=== PATIENT | male | born 1955 | race Caucasian/White ===

== ENCOUNTER → 2018-11-07 11:27 | Outpatient (CLI) | payer BC, SELFPAY ==
--- NOTE | 2018-11-07 11:29 | NM_ITS ---
CARDIOLITE SPECT MYOCARDIAL PERFUSION LEXISCAN, REST AND STRESS: History: Hypertension, hyperlipidemia, family history, chest pain, shortness of breath and fatigue Procedure: Patient received a 0.4 mg of intravenous Lexiscan, resting heart rate was 47 bpm resting blood pressure 164/83, with Lexiscan maximum heart rate achieved was 70 bpm which is less than 85% of the maximum predicted heart rate and a blood pressure was 133/77. With Lexiscan patient complained of malaise. Electrocardiogram: Resting echocardiogram showed sinus bradycardia, with Lexiscan less than 1.[address] segment depression noted from the baseline EKG. The EKG portion of the Lexiscan Myoview is nondiagnostic. Cardiac stress and resting SPECT images: Cardiac stress and resting SPECT images were obtained using technetium 99 Myoview 32.4 mCi stress and 10.5 mCi at rest. Gated SPECT further analysis of segmental wall motion and calculation of ejection fraction also done. Cardiac stress and the suspect images show mild fixed defect in the inferior wall with normal contractility in the gated SPECT is likely secondary to soft tissue attenuation, no reversible ischemia seen. Computer derived ejection fraction is 64% with no regional wall motion abnormality. Right ventricle is mildly enlarged with normal contractility. Conclusion: 1. The EKG portion of the Lexiscan Myoview is nondiagnostic. 2. No scintigraphic evidence of reversible ischemia seen. 3. Computer derived ejection fraction is extensive 4% with no regional wall motion abnormality, right ventricle is mildly enlarged with normal contractility.
--- NOTE | 2018-11-07 13:15 | HMH.ITSHM ---
Current Home Medications as stated by this patient Basil Leal or policy services representative. []asp lovastatin bisprolol amlodipine benazepril
== END ==
PROVIDERS: PCP Family Medicine; Visit Provider Internal Medicine
DX: I20.9 Angina pectoris, unspecified (principal); R06.00 Dyspnea, unspecified; I10 Essential (primary) hypertension; E78.5 Hyperlipidemia, unspecified; R00.1 Bradycardia, unspecified
CPT/HCPCS: 78452; 93017; A9502; J2785

== ENCOUNTER → 2018-11-27 09:29 | Outpatient (CLI) | payer MEDICAID, SELFPAY ==
[2018-11-27 10:00] LABS: Blood Urea Nitrogen 24 mg/dL (7-18); Creatinine,Serum 1.25 mg/dL (0.70-1.30); Estimated Glomerular Filt Rate 59 ml/min (>60); GFR (African American) 71 ML/MIN (>60)
--- NOTE | 2018-11-27 10:07 | CT_ITS ---
CT chest w con HISTORY: Shortness of air, cough, chest pain ITS.REASON: SOB,CHRONIC COUGHING,WHEEZING,FIBROTIC LUNG DISEASE ORDERING PHYSICIAN: Sue Foster PATIENT AGE: 63 years COMPARISON: 10/28/2014 TECHNIQUE: Axial images obtained following the administration of 75 mL of Optiray 350 . Sagittal, and coronal reformatted images are also generated and reviewed. All CT scans at the facility use one or more dose reduction, viz: automated exposure control, ma/kV adjustment per patient size (including targeted exams where dose is matched to indication, i.e. head), or iterative reconstruction technique. FINDINGS: There are scattered small nodes in mediastinum. No mediastinal or hilar adenopathy or mass is evident. Some of the mediastinal nodes are calcified. There are coronary artery calcifications. Normal heart size. No evidence of aortic aneurysm or dissection. No central pulmonary embolus. There are some scattered fibrotic changes noted in the right upper lobe, right lower lobe, and left upper lobe not significantly changed. No lobar consolidation or collapse is evident. Atelectasis or fibrosis is present in the right middle lobe along the major fissure which has developed since the previous exam. No effusions. No suspicious pulmonary lesions. No central obstructing lesions. There is a calcified granuloma in the right upper lobe. No acute bony findings. IMPRESSION: 1. Scattered fibrotic changes which are mostly stable. 2. New area of atelectasis or fibrosis in the right middle lobe along the major fissure. 3. Old granulomatous disease 4. Coronary artery calcifications
== END ==
PROVIDERS: Visit Provider Nurse Practitioner Family
DX: R05 Cough (principal); R06.02 Shortness of breath; R06.2 Wheezing; J84.10 Pulmonary fibrosis, unspecified
CPT/HCPCS: 36415; 71260; 82565; 84520; Q9967

== ENCOUNTER → 2019-02-04 09:39 | Outpatient (POV) | payer MEDICAID, SELFPAY | PROVIDERS: Visit Provider Internal Medicine | DX: Z00.00 Encounter for general adult medical examination without abnormal findings (principal) ==

== ENCOUNTER → 2019-02-24 09:18 | Outpatient (CLI) | payer MEDICAID, SELFPAY ==
[2019-02-24 10:12] LABS: Basophils % 0.3 % (0.1-2.0); Eosinophils # 0.1 K/mm3 (0.0-0.4); Eosinophils % 1.5 % (0.1-12.0); Hematocrit 48.1 % (42.0-52.0); Hemoglobin 15.5 g/dL (14.1-18.0); Lymphocytes # 1.8 K/mm3 (0.7-4.5); Lymphocytes % 26.8 % (10-50); Mean Corpuscular HGB Conc 32.2 g/dL (31.8-35.4); Mean Corpuscular Hemoglobin 28.2 pg (27.0-31.2); Mean Corpuscular Volume 87.7 fl (80-94); Mean Platelet Volume 8.6 fl (7.4-10.4); Monocytes # 0.7 K/mm3 (0.1-1.0); Monocytes % 10.6 % (1.7-9.3); Neutrophils # 4.1 K/mm3 (1.8-7.8); Neutrophils % 60.8 % (37.0-80.0); Platelet Count 222 K/mm3 (142-424); Red Blood Count 5.48 M/mm3 (4.60-6.20); Red Cell Distribution Width 13.7 % (11.5-17.5); White Blood Count 6.8 K/mm3 (4.8-10.8)
[2019-02-24 12:45] LABS: Alanine Aminotransferase 33 U/L (12-78); Albumin Level 3.7 gm/dL (3.4-5.0); Anion Gap 12.6 mEq/L (5-15); Aspartate Amino Transferase 20 U/L (15-37); Bilirubin,Direct 0.1 mg/dL (0.0-0.2); Bilirubin,Indirect 0.4 mg/dL (0.0-0.9); Bilirubin,Total 0.5 mg/dL (0.2-1.0); Blood Urea Nitrogen 19 mg/dL (7-18); Calcium 8.9 mg/dL (8.5-10.1); Carbon Dioxide 27 mmol/L (21.0-32.0); Chloride 104 mmol/L (98-107); Cholesterol 152 mg/dL (140-200); Creatinine,Serum 1.27 mg/dL (0.70-1.30); Estimated Glomerular Filt Rate 57 ml/min (>60); GFR (African American) 70 ML/MIN (>60); Glucose 99 mg/dL (74-106); HDL Cholesterol 48 mg/dL (27-67); Potassium 4.6 mmoL/L (3.5-5.1); Sodium 139 mmol/L (136-145); Total Protein,Serum 6.9 gm/dL (6.4-8.2); Triglycerides 65 mg/dL (30-200); VLDL Cholesterol 13 mg/dL (0-40)
[2019-02-24 12:46] LABS: Alkaline Phosphatase 57 U/L (46-116); Chol/HDL Ratio 3.2 (1-3.5); LDL Cholesterol 91 mg/dL (0-130)
== END ==
PROVIDERS: Visit Provider Physician Assistant
DX: R00.1 Bradycardia, unspecified (principal); I25.10 Atherosclerotic heart disease of native coronary artery without angina pectoris; R06.09 Other forms of dyspnea; E78.2 Mixed hyperlipidemia; I10 Essential (primary) hypertension
CPT/HCPCS: 36415; 80048; 80061; 80076; 85025

== ENCOUNTER → 2019-03-04 19:45 | Outpatient (CLI) | payer MEDICAID, SELFPAY | PROVIDERS: PCP Pain Medicine Interventional Pain Medicine; Visit Provider Internal Medicine | DX: G47.33 Obstructive sleep apnea (adult) (pediatric) (principal); R40.0 Somnolence; J44.9 Chronic obstructive pulmonary disease, unspecified | CPT/HCPCS: 95810 ==

== ENCOUNTER → 2019-03-10 12:10 | Outpatient (CLI) | payer MEDICAID, SELFPAY ==
--- NOTE | 2019-03-10 12:17 | CA_ITS ---
PROCEDURE: 2-D M-mode and color Doppler study INDICATIONS FOR THE TEST: Chest pain COPD Heart Murmur+ Tobacco Smoking Palpitations Fatigue Syncope Edema Hypertension Diabetes Mellitus Rheumatic Fever SOB+OQUENDO Obesity+Hyperlipidemia+ Family History HD Additional History cad,bradycardia TDS R/T BODY HABITUS PATIENT INFORMATION HEIGHT: 67 WEIGHT:221 GENDER: Male B/P:136/71 2-D/M-MODE INTERPRETATION: 2-D MEASUREMENTS OBSERVED VALUES IN CMS Right Ventricular Dimension (RVDd) 2.9 Interventricular Septum (Thickness)(IVsd) 1.0 Left Ventricular Internal Dimensions(LVIDd) 4.3 Left Ventricular Posterior Wall (Thickness)(LVPWd) 1.0 Aortic Root 2.4 Aortic Cusp Separation 1.7 Left Atrial Dimensions (LAD) 4.1 2D 1. Left atrium is mildly enlarged, left ventricle is normal size, mild concentric left ventricular hypertrophy, visually estimated ejection fraction 55% with no regional wall motion abnormality, endocardial surfaces are somewhat poorly visualized. 2. The right atrium and right ventricle are mildly enlarged with normal contractility. 3. The aortic valve is minimally thickened and fibrosed. 4. The mitral and tricuspid valve leaflets are minimally thickened 5. The pulmonic valve is poorly visualized. 6. No significant pericardial effusion noted. DOPPLER INTERROGATION: Doppler interrogation of the aortic, mitral and tricuspid valvular presence of mild mitral and tricuspid regurgitation, tricuspid regurgitation jet velocity is inadequate for calculation of the right ventricular systolic pressure, grade 1 diastolic dysfunction seen without tissue Doppler evidence of raised left atrial pressure. CONCLUSION: 1. Technically difficult study because of the patient's factor and poor acoustic windows 2. Mildly enlarged left atrium, normal left ventricular size, mild concentric left ventricular hypertrophy, visually estimated ejection fraction 55% with no regional wall motion abnormality, endocardial surface of poorly visualized. Grade 1 diastolic dysfunction seen without tissue Doppler evidence of raised left atrial pressure. 3. Mildly enlarged right ventricle with normal contractility. 4. Mild mitral and tricuspid regurgitation. 5. No significant pericardial effusion noted.
[2019-03-10 13:45] VITALS: PULSE 53; PULSE 55
== END ==
PROVIDERS: PCP Family Medicine; Visit Provider Internal Medicine
DX: R01.1 Cardiac murmur, unspecified (principal); J45.909 Unspecified asthma, uncomplicated; H54.40 Blindness, one eye, unspecified eye
CPT/HCPCS: 93306; 94060; 94618; 94640; 94726; 94729

== ENCOUNTER → 2019-08-14 13:23 | Outpatient (CLI) | payer OTHER, SELFPAY | PROVIDERS: PCP Family Medicine; Visit Provider Nurse Practitioner Family | DX: G47.33 Obstructive sleep apnea (adult) (pediatric) (principal) | CPT/HCPCS: 94762 ==

== ENCOUNTER 2019-12-19 08:31 | Day surgery (SDC) | payer OTHER, SELFPAY ==
[2019-12-19] VITALS (12 sets, daily range): BP systolic 135–178; BP diastolic 82–103; PULSE 50–83; RESP 16–20; TEMP 36.8; O2SAT 92–96; BMI 38.4
--- NOTE | 2019-12-19 08:36 | CA_ITS ---
APPROVED REPORT EXAM: Comprehensive 2D, Doppler, and color-flow Echocardiogram Outside Sales: Sue Garcia RVT Ht: 5 ft 6 in Wt: 238lbs BSA: 2.15 BP: 124/85 mmHg Indications: CP,MURMUR,FATIGUE,BRADYCARDIA,CAD,ALEXI,SOA,OQUENDO,HLD,OBESITY 2D Dimensions LVOT 1.83 cm (M/F) 1.5-2.5 M-Mode Dimensions RVDd 2.69 cm (0.9-2.6) LVDd 5.91 cm (3.5-5.7) LVDs 4.24 cm (3.5-5.7) IVSd 0.87 cm (0.6-1.1) PWd 0.91 cm (0.6-1.1) EF (Teich) 53.80% FS 28.30% EDV (Teich) 173.90 mL ESV (Teich) 80.40 mL LV Diastology E/A Ratio 0.76 Aortic Valve LVOT Max 136.00 (70-110 cm/s) LVOT VTI 33.43 cm Mitral Valve MV A Velocity 85.00 (40-130 cm/s) Left Ventricle Left atrium is mildly enlarged, left ventricle is normal size, mild concentric left ventricular hypertrophy, visually estimated ejection fraction 55% with no regional wall motion abnormality, grade 1 diastolic dysfunction seen without tissue Doppler evidence of raise left atrial pressure. Right Ventricle Right atrium and right ventricular normal size and contractility. Aortic Valve Aortic valve is minimally thickened and calcified, there is no aortic stenosis, there is mild aortic insufficiency. Mitral Valve Mitral valve is minimally thickened, there is no mitral stenosis, there is mild mitral regurgitation. Tricuspid Valve Tricuspid valve is grossly normal, there is mild tricuspid regurgitation, tricuspid regurgitation jet velocity is inadequate for calculation of the right ventricular systolic pressure. Pulmonic Valve Pulmonic valve is poorly visualized. Great Vessels Aortic root is normal size. Pericardium No significant pericardial effusion noted. Conclusion 1. Mildly enlarged left atrium, normal left ventricular size, mild concentric left ventricular hypertrophy, visually estimated ejection fraction 55% with no regional wall motion abnormality, grade 1 diastolic dysfunction seen without tissue Doppler evidence of raise left atrial pressure. 2. Mild aortic, mild mitral and tricuspid regurgitation. 3. No significant pericardial effusion noted. Electronically signed by : Graham Tilley, 12/19/2019 13:53:19
[2019-12-19 09:23] LABS: Basophils # 0.4 K/mm3 (0-0.2); Basophils % 5.7 % (0.1-2.0); Eosinophils # 0.2 K/mm3 (0.0-0.4); Eosinophils % 2.7 % (0.1-12.0); Hematocrit 50.6 % (42.0-52.0); Hemoglobin 16.3 g/dL (14.1-18.0); Lymphocytes # 1.6 K/mm3 (0.7-4.5); Lymphocytes % 23.2 % (10-50); Mean Corpuscular HGB Conc 32.1 g/dL (31.8-35.4); Mean Corpuscular Hemoglobin 28.9 pg (27.0-31.2); Mean Corpuscular Volume 90.1 fl (80-94); Mean Platelet Volume 9.1 fl (7.4-10.4); Monocytes # 0.9 K/mm3 (0.1-1.0); Monocytes % 12.4 % (1.7-9.3); Neutrophils # 4.3 K/mm3 (1.8-7.8); Neutrophils % 61.7 % (37.0-80.0); Platelet Count 212 K/mm3 (142-424); Red Blood Count 5.62 M/mm3 (4.60-6.20); Red Cell Distribution Width 14.5 % (11.5-17.5)
[2019-12-19 09:28] LABS: Chloride 104 mmol/L (98-107); Potassium 4.2 mmoL/L (3.5-5.1); Sodium 140 mmol/L (136-145)
[2019-12-19 09:31] LABS: Anion Gap 11.2 mEq/L (5-15); Blood Urea Nitrogen 18 mg/dl (9-20); Calcium 9.3 mg/dl (8.4-10.2); Carbon Dioxide 29 mmol/L (22.0-30.0); Creatinine Clearance Estimated 96 mL/min (50-200); Estimated Glomerular Filt Rate 61 ml/min (>60); GFR (African American) 74 ML/MIN (>60); Glucose 109 mg/dl (74-100)
--- NOTE | 2019-12-19 10:15 | IR_ITS ---
APPROVED REPORT Patient Location: Outpatient PROCEDURES Left heart catheterization Left ventriculogram Selective coronary angiogram INDICATION Angina pectoris, Abnormal Myoview Informed consent was obtained prior to the procedure. COMPLICATIONS NONE Estimated Blood Loss: LESS THAN 10 ML TECHNIQUE One percent lidocaine used to anesthetize the right anterior aspect of the wrist. The right radial artery was accessed via the Seldinger technique. A 6 Bengali sheath was placed in the right radial artery. 2.5 mg of verapamil, 800 mcg of nitroglycerin, 1mg Lidocaine and 5000 U Heparin were given through the arterial sheath. The trap catheter was also used to perform left heart catheterization, left ventriculogram and selective coronary angiogram. At the end of the procedure the sheath was removed good hemostasis was achieved using Traclet band, patient was transferred to the postop holding area in stable condition. ANGIOGRAPHIC RESULTS The left main artery Normal The left anterior descending artery Has proximal and mid vessel 20 to 30% stenoses The circumflex artery Mild luminal irregularities less than 10% The right coronary artery Is a dominant vessel and has mid vessel and distal 30% stenoses The BELCHER ventriculogram reveals Normal ejection fraction 65% The left ventricular end-diastolic pressure 10 mmHg IMPRESSION Mild diffuse coronary disease as described above Normal ejection fraction Normal normal left ventricular end-diastolic pressure PLAN 1. Medical management 2. Standard therapy for ischemic heart disease 3. LDL less than 55 Electronically signed by : Earnest Nelson, 12/19/2019 11:46:56
== END 2019-12-19 14:38 | disposition home or self-care (01) ==
LOC: CATHLAB 08:31
PROVIDERS: PCP Family Medicine; Visit Provider Internal Medicine
DX: I25.118 Atherosclerotic heart disease of native coronary artery with other forms of angina pectoris (principal); E78.2 Mixed hyperlipidemia; I10 Essential (primary) hypertension; G47.33 Obstructive sleep apnea (adult) (pediatric); R00.1 Bradycardia, unspecified; R94.31 Abnormal electrocardiogram [ECG] [EKG]; R07.89 Other chest pain; Z79.51 Long term (current) use of inhaled steroids; Z79.899 Other long term (current) drug therapy; Z88.8 Allergy status to other drugs, medicaments and biological substances
CPT/HCPCS: 80048; 85025; 93306; 93458; 99152; C1725; C1760; C1769; J1644; Q9967

== ENCOUNTER → 2020-03-31 16:17 | Outpatient (CLI) | payer OTHER, SELFPAY ==
--- NOTE | 2020-03-31 16:20 | CA_ITS ---
APPROVED REPORT Left Lower Extremity Venous Study for DVT. Deputy Treasurer: IMTIAZ Indications Lower Extremity Pain: Left Patient denies trauma. Pain is in the medial aspect of the left mid calf area. Risk Factors Obesity Past History DVT : Left Medications Aspirin 81 mg ASA daily Vein Imaging CFV (L): compressive, spontaneous, phasic, augmentation FEM (L): compressive, spontaneous, phasic, augmentation POP (L): compressive, spontaneous, phasic, augmentation PTV (L): Compressible GSV (L): compressive, spontaneous, phasic, augmentation SSV (L): Compressible Peroneals (L):Compressible GAS (L): Compressible Findings No evidence of DVT or superficial thrombophlebitis in the veins scanned of the left lower extremity. Nonvascularized anechoic mass appears to be a fluid collection and is consistent with a sotomayor's cyst in the left medial popliteal fossa of the LLE. Conclusion No evidence of DVT or superficial thrombophlebitis in the veins scanned of the left lower extremity. Nonvascularized anechoic mass appears to be a fluid collection and is consistent with a sotomayor's cyst in the left medial popliteal fossa of the LLE. Electronically signed by : Raul Gracia MD 03/31/2020 17:31:11
== END ==
PROVIDERS: PCP Family Medicine; Visit Provider Nurse Practitioner
DX: M79.605 Pain in left leg (principal)
CPT/HCPCS: 93971

== ENCOUNTER → 2020-08-09 09:54 | Outpatient (CLI) | payer OTHER, SELFPAY ==
[2020-08-09 10:46] LABS: Chloride 101 mmol/L (98-107)
[2020-08-09 10:47] LABS: Potassium 4.4 mmoL/L (3.5-5.1); Sodium 140 mmol/L (136-145)
[2020-08-09 10:49] LABS: Alanine Aminotransferase 27 U/L (12-78); Alkaline Phosphatase 65 U/L (38-126); Anion Gap 14.4 mEq/L (5-15); Aspartate Amino Transferase 27 U/L (17-59); Bilirubin,Direct 0.1 mg/dl (0.0-0.4); Bilirubin,Indirect 0.6 mg/dL (0.0-0.9); Bilirubin,Total 0.7 mg/dl (0.2-1.3); Bilirubin,Unconjugated 0.7 mg/dL (0.0-1.1); Blood Urea Nitrogen 22 mg/dl (9-20); Carbon Dioxide 29 mmol/L (22.0-30.0); Cholesterol 224 mg/dl (140-200); Estimated Glomerular Filt Rate 51 ml/min (>60); GFR (African American) 62 ML/MIN (>60); Triglycerides 145 mg/dl (30-150); VLDL Cholesterol 29 mg/dL (0-40)
[2020-08-09 10:50] LABS: Albumin Level 4.8 g/dl (3.5-5.0); Calcium 10.3 mg/dl (8.4-10.2); Chol/HDL Ratio 4.3 (1-3.5); Glucose 128 mg/dl (74-100); HDL Cholesterol 52 mg/dl (40-60); Total Protein,Serum 8.1 g/dl (6.3-8.2)
[2020-08-09 11:01] LABS: Direct LDL Cholesterol 135.15 mg/dL (100-129)
[2020-08-09 11:59] LABS: Hemoglobin A1C 6.1 % (4.0-6.0)
== END ==
PROVIDERS: Visit Provider Physician Assistant
DX: R07.89 Other chest pain (principal); R06.00 Dyspnea, unspecified; R94.31 Abnormal electrocardiogram [ECG] [EKG]; R00.1 Bradycardia, unspecified; I25.10 Atherosclerotic heart disease of native coronary artery without angina pectoris; I11.9 Hypertensive heart disease without heart failure; E78.5 Hyperlipidemia, unspecified; G47.33 Obstructive sleep apnea (adult) (pediatric); E66.9 Obesity, unspecified
CPT/HCPCS: 36415; 80048; 80061; 80076; 83036

== ENCOUNTER → 2020-11-09 08:00 | Outpatient (CLI) | payer OTHER, SELFPAY ==
--- NOTE | 2020-11-09 08:00 | US_ITS ---
PROCEDURE: US GALLBLADDER CLINICAL INDICATION: GERD, CP COMPARISON: No exams were available for comparison FINDINGS: Pancreas: The visualized pancreas is unremarkable. The tail is partially obscured. Liver: Diffuse hepatic steatosis. No focal lesions within the limitations of the study.. There is appropriate direction of blood flow within a non dilated portal vein. Right kidney: Unremarkable appearing. No hydronephrosis. Gallbladder: There are 2 focal hyperechoic lesions noted in the gallbladder measuring up to 5 millimeters in the nondependent portion of the gallbladder, concerning for polyps. No pericholecystic fluid or gallbladder wall thickening. The CBD is normal in size. IMPRESSION: Hepatic steatosis. Gallbladder polyps measuring up to 5 millimeters. No evidence of cholecystitis or cholelithiasis. Dictated by: Mirtha Ross 11/09/2020 13:04 Mirtha Ross in [place] 11/09/2020 13:04
== END ==
PROVIDERS: PCP Family Medicine; Visit Provider Internal Medicine Cardiovascular Disease
DX: R07.89 Other chest pain (principal); K21.9 Gastro-esophageal reflux disease without esophagitis
CPT/HCPCS: 76705

== ENCOUNTER → 2020-11-29 13:17 | Outpatient (CLI) | payer OTHER, SELFPAY ==
--- NOTE | 2020-11-29 13:26 | XR_ITS ---
PROCEDURE: XR CHEST 2V CLINICAL HISTORY: RT-SIDED CHEST PAIN COMPARISON: CR CXR CHEST(2 VIEWS-NOT PORTABLE) from 10/26/2014 CR CXR CHEST(2 VIEWS-NOT PORTABLE) from 11/14/2014 CR CXR2V XR chest 2V from 10/07/[address] chest w con from 11/27/2018 FINDINGS: The cardiomediastinal silhouette and pulmonary vascularity are within normal limits. The lungs are clear without infiltrates, suspicious nodules, or pleural effusions. No acute bony abnormalities. IMPRESSION: No acute findings. Dictated by: Raul Gracia MD 11/29/2020 14:21 Raul Gracia MD in [facility] 11/29/2020 14:23
[2020-11-29 13:32] LABS: Hematocrit 47.6 % (42.0-52.0); Hemoglobin 15.9 g/dL (14.1-18.0); Mean Corpuscular HGB Conc 33.4 g/dL (31.8-35.4); Mean Corpuscular Volume 89.8 fl (80-94); Platelet Count 209 K/mm3 (142-424); Red Cell Distribution Width 14.5 % (11.5-17.5); White Blood Count 7.7 K/mm3 (4.8-10.8)
[2020-11-29 14:40] LABS: Alanine Aminotransferase 28 U/L (12-78); Albumin Level 4.6 g/dl (3.5-5.0); Albumin/Globulin Ratio 1.6 (1.1-1.8); Alkaline Phosphatase 71 U/L (38-126); Amylase 59 U/L (30-110); Anion Gap 15.5 mEq/L (5-15); Aspartate Amino Transferase 27 U/L (17-59); Bilirubin,Total 0.4 mg/dl (0.2-1.3); Blood Urea Nitrogen 26 mg/dl (9-20); Calcium 9.6 mg/dl (8.4-10.2); Carbon Dioxide 25 mmol/L (22.0-30.0); Chloride 105 mmol/L (98-107); Estimated Glomerular Filt Rate 34 ml/min (>60); GFR (African American) 41 ML/MIN (>60); Globulin 2.9 g/dL (1.3-3.2); Glucose 156 mg/dl (74-100); Lipase 165 U/L (23-300); Potassium 4.5 mmoL/L (3.5-5.1); Sodium 141 mmol/L (136-145); Total Protein,Serum 7.5 g/dl (6.3-8.2)
== END ==
PROVIDERS: Visit Provider Nurse Practitioner Family
DX: R07.9 Chest pain, unspecified (principal); R10.11 Right upper quadrant pain
CPT/HCPCS: 36415; 71046; 80053; 82150; 83690; 85014; 85018; 85048; 85049

== ENCOUNTER 2020-11-30 18:07 | Emergency (ER) | payer OTHER, SELFPAY ==
[2020-11-30] VITALS (8 sets, daily range): BP systolic 149–178; BP diastolic 76–90; PULSE 60–69; RESP 13–20; TEMP 36.7–36.8; O2SAT 94–97; BMI 38.5
--- NOTE | 2020-11-30 18:26 | HMH.EDGENADL ---
ED Disposition Clinical Impression: Right upper quadrant abdominal pain, Right-sided chest pain Disposition: Home, Self-Care Condition on Discharge: Good Instructions: DI for Atypical Chest Pain, DI for Acute Abdominal Pain Additional Instructions: Call your primary care provider tomorrow. Additional instructions for ABDOMINAL PAIN: See your physician as soon as possible for further evaluation. Return immediately if worsening abdominal pain, vomiting, shortness of breath, fever, vomiting of blood or abdominal distention. Additional instructions for CHEST PAIN: See your physician as soon as possible for further evaluation. Return immediately if worsening chest pain, vomiting, shortness of breath, fever, coughing of blood. Referrals: Millicent Tovar APRN [Primary Care Provider] - - Critical Care Critical Care Time: No Attestation: On 11/30/20, the high probability of a clinically significant, sudden or life threatening deterioration of the following system(s) required my full and direct attention, intervention and personal management. The time I documented below is in addition to time spent performing reported procedures but includes the following listed in this critical care notation. Medical Decision Making - Medical Records Medical records reviewed: Yes: I reviewed the patient's medical records. MR Comment: Reviewed cardiology office visit from today. Reviewed gallbladder ultrasound 11/09/20 and chest x-ray 11/29/20 results. Reviewed prior left heart cath result 12/19/19 - mild diffuse coronary artery disease, medical management. - Craig Inquiry Pt receiving controlled substance: No Vital Signs: 11/30/20 18:09 Temperature 98.0 F Temperature Source Oral Pulse Rate [Right] 61 Respiratory Rate 18 Blood Pressure [Right Arm] 178/89 H Blood Pressure Mean [Right Arm] 118 02 Sat by Pulse Oximetry 97 Oxygen Delivery Method Room Air - Lab Data Lab Results 11/30/20 18:35: Troponin I < 0.01, Lipase 123 11/30/20 18:38: WBC 8.0, RBC 5.16, Hgb 15.3, Hct 46.3, MCV 89.9, MCH 29.6, MCHC 33.0, RDW 14.7, Plt Count 201, MPV 8.6, Neut % (Auto) 55.2, Lymph % (Auto) 29.0, Henderson % (Auto) 12.8 H, Eos % (Auto) 2.5, Baso % (Auto) 0.5, Neut # (Auto) 4.4, Lymph # (Auto) 2.3, Henderson # (Auto) 1.0, Eos # (Auto) 0.2, Baso # (Auto) 0.0 11/30/20 18:38: Sodium 138, Potassium 3.8, Chloride 103, Carbon Dioxide 26, Anion Gap 12.8, BUN 27 H, Creatinine 1.50 H D, Estimated Creat Clear 76, Estimated GFR 47 L, Est GFR ( Amer) 57 L D, Glucose 136 H, Calcium 9.6, Total Bilirubin 0.5, AST 31, ALT 25, Alkaline Phosphatase 69, Total Protein 7.5, Albumin 4.5, Globulin 3.0, Albumin/Globulin Ratio 1.5 Result diagrams: 11/30/20 18:38 11/30/20 18:38 Orders (Tests/Meds): ED MEDICATIONS Discontinued Medications Generic Name Dose Route Start Last Admin Trade Name Freq PRN Reason Stop Dose Admin Iopamidol 75 ml 11/30/20 20:08 11/30/20 20:08 Iopamidol-370 (76%);100ml Bottle IV 11/30/20 20:09 75 ml ONCE ONE Administration Ketorolac Tromethamine 15 mg 11/30/20 20:19 11/30/20 20:30 Ketorolac 30mg/Ml Vial IV 11/30/20 20:20 15 mg ONCE ONE Administration Sodium Chloride 1,000 ml 11/30/20 19:11 11/30/20 19:21 Sodium Chloride 0.9% 1000ml Bag IV 11/30/20 19:12 1,000 ml BOLUS ONE Administration Sodium Chloride 10 ml 11/30/20 20:08 11/30/20 20:08 Sodium Chloride 0.9% 10ml Syr (Rad Only) IV 11/30/20 20:09 10 ml ONCE ONE Administration ORDERS Category Date Time Status CT abdomen pelvis w con Stat Cat Scan 11/30/20 18:[address] chest w con Stat Cat Scan 11/30/20 18:48 Taken Troponin I Q3H Lab 11/30/20 22:00 Ordered Troponin I Q3H Lab 12/01/20 01:00 Ordered Urinalysis and Microscopic Stat Lab 11/30/20 18:49 Ordered - CT Data CT Scan: Abdomen, Pelvis, Chest Time Received: 20:36 ([facility] fax) ED CT Reviewed: Yes: I have viewed the radiologist's interpretation Findings Narrative: Ab
--- NOTE | 2020-11-30 18:39 | ECG_ITS ---
APPROVED REPORT Exam: Resting ECG HR:58 bpm ECG Measurements Heart Rate 58 AXES ME 176 P 33 QRSd 104 QRS -47 QT 424 T 42 QTc 416 Conclusion Sinus bradycardia Left anterior fascicular block Old septal changes Abnormal ECG Electronically signed by : Carlos Mahan, 12/01/2020 17:35:11
--- NOTE | 2020-11-30 18:48 | CT_ITS ---
PROCEDURE: CT ABDOMEN PELVIS W CON CLINICAL INDICATION: right chest and abdominal pain Right-sided abdominal pain COMPARISON: No exams were available for comparison TECHNIQUE: IV Contrast: 75ML Isovue 370 Oral Contrast None Axial images obtained with sagittal and coronal reformats. All CT scans at the facility use one or more dose reduction, viz: automated exposure control, ma/kV adjustment per patient size (including targeted exams where dose is matched to indication, i.e. head), or iterative reconstruction technique. FINDINGS: LOWER THORAX: Please see chest CT report ABDOMEN & PELVIS: The liver, spleen, adrenal glands, pancreas, have an unremarkable appearance. Small bilateral renal hypodense areas are noted probably due to small cyst. Largest is in the left kidney posteriorly at 8 mm. The density of this nodule is greater than expected for a cyst. Ultrasound may confirm cystic nature. Unremarkable appendix. No intestinal obstruction or free air. Colonic diverticulosis without diverticulitis. There is a small umbilical hernia containing fat. No acute bony findings. IMPRESSION: No acute finding. Probable bilateral renal cyst which may be confirmed with ultrasound Dictated by: Raul Gracia MD 12/01/2020 08:28 Raul Gracia MD in [place] 12/01/2020 08:28
--- NOTE | 2020-11-30 18:48 | CT_ITS ---
PROCEDURE: CT CHEST W CON CLINCAL INDICATION: right chest and abdominal pain COMPARISON: CT [facility] CT CHEST W/O CONTRAST from 10/28/[address] chest w con from 11/27/2018 TECHNIQUE: IV Contrast: 75ml Isovue 370 Axial images obtained with sagittal and coronal reformats. All CT scans at the facility use one or more dose reduction, viz: automated exposure control, ma/kV adjustment per patient size (including targeted exams where dose is matched to indication, i.e. head), or iterative reconstruction technique. FINDINGS: HEART AND MEDIASTINAL STRUCTURES: No mediastinal or hilar mass or adenopathy. No evidence of aortic aneurysm or dissection. No central pulmonary embolus. Coronary artery calcifications are present. LUNGS AND PLEURAL SPACES: There is evidence of old granulomatous disease with calcified nodule in the posterior segment of the right upper lobe. There is an associated noncalcified nodular opacity medial to the granuloma measuring approximately 7 mm possibly due to a dilated vessel. Small cluster of nodules present in the right lower lobe inferior to the calcified granuloma. This area is slightly more prominent. There are 2 stable nodular opacities is along the left major fissure superiorly each at 4 mm. BONY STRUCTURES: No acute bony abnormalities apparent. UPPER ABDOMEN: Fatty liver ADDITIONAL FINDINGS: No other significant abnormalities. IMPRESSION: 1. No acute finding. 2. Faint nodular opacities in the right upper lobe as described above somewhat more prominent. Recommend 3 month follow-up to confirm short term stability. 3. Coronary artery calcifications Dictated by: Raul Gracia MD 12/01/2020 08:21 Raul Gracia MD in [place] 12/01/2020 08:21
[2020-11-30 18:50] LABS: Basophils % 0.5 % (0.1-2.0); Eosinophils # 0.2 K/mm3 (0.0-0.4); Eosinophils % 2.5 % (0.1-12.0); Hematocrit 46.3 % (42.0-52.0); Hemoglobin 15.3 g/dL (14.1-18.0); Lymphocytes # 2.3 K/mm3 (0.7-4.5); Mean Corpuscular Hemoglobin 29.6 pg (27.0-31.2); Mean Corpuscular Volume 89.9 fl (80-94); Mean Platelet Volume 8.6 fl (7.4-10.4); Monocytes % 12.8 % (1.7-9.3); Neutrophils # 4.4 K/mm3 (1.8-7.8); Neutrophils % 55.2 % (37.0-80.0); Platelet Count 201 K/mm3 (142-424); Red Blood Count 5.16 M/mm3 (4.60-6.20); Red Cell Distribution Width 14.7 % (11.5-17.5)
[2020-11-30 18:56] LABS: Chloride 103 mmol/L (98-107)
[2020-11-30 18:57] LABS: Potassium 3.8 mmoL/L (3.5-5.1); Sodium 138 mmol/L (136-145)
[2020-11-30 18:59] LABS: Alanine Aminotransferase 25 U/L (12-78); Aspartate Amino Transferase 31 U/L (17-59); Blood Urea Nitrogen 27 mg/dl (9-20); Creatinine Clearance Estimated 76 mL/min (50-200); Estimated Glomerular Filt Rate 47 ml/min (>60); GFR (African American) 57 ML/MIN (>60)
[2020-11-30 19:00] LABS: Albumin Level 4.5 g/dl (3.5-5.0); Albumin/Globulin Ratio 1.5 (1.1-1.8); Alkaline Phosphatase 69 U/L (38-126); Anion Gap 12.8 mEq/L (5-15); Bilirubin,Total 0.5 mg/dl (0.2-1.3); Carbon Dioxide 26 mmol/L (22.0-30.0); Total Protein,Serum 7.5 g/dl (6.3-8.2)
[2020-11-30 19:05] LABS: Calcium 9.6 mg/dl (8.4-10.2); Glucose 136 mg/dl (74-100)
[2020-11-30 19:20] LABS: Lipase 123 U/L (23-300)
--- NOTE | 2020-11-30 19:20 | PC.NURSE ---
clinical radiologist called advising to hydrate pt before he can get CT, due to labs not sufficient. iv fluids given
[2020-11-30 19:33] LABS: Troponin I < 0.01 ng/ml (0.00-0.034)
== END 2020-11-30 20:56 | disposition home or self-care (01) ==
PROVIDERS: Emergency Provider Emergency Medicine; PCP Nurse Practitioner Family
DX: R07.89 Other chest pain (principal); R10.11 Right upper quadrant pain; I25.10 Atherosclerotic heart disease of native coronary artery without angina pectoris; I10 Essential (primary) hypertension; E78.5 Hyperlipidemia, unspecified; Z79.899 Other long term (current) drug therapy
CPT/HCPCS: 71260; 74177; 80053; 83690; 84484; 85025; 93005; 96365; 96375; 99282; Q9967

== ENCOUNTER → 2020-12-20 10:16 | Outpatient (CLI) | payer OTHER, SELFPAY ==
--- NOTE | 2020-12-20 10:24 | NM_ITS ---
PROCEDURE: NM HEPATOBILIARY WO PHARM CLINICAL INDICATION: GB POLYP , RUQ PAIN COMPARISON: US US GALLBLADDER from 11/09/2020 TECHNIQUE: Dose 8.2 mCi of Choletec injected was injected into the right arm. Ensure was administered orally FINDINGS: The radioisotope excretes into the common bile duct and the small bowel without evidence of obstruction. The radioisotope is noted within the gallbladder at 40 minutes. The radioisotope is noted in the small bowel at 5 minutes. The ejection fraction of the gallbladder measures 16 percent. IMPRESSION: Abnormal gallbladder function with ejection fraction of 16 percent. No evidence of obstruction. Evaluation is limited for gallbladder polyps on the nuclear medicine scan. Follow-up gallbladder ultrasound in 3-6 months is recommended. Dictated by: Mirtha Ross 12/20/2020 13:23 Mirtha Ross in [place] 12/20/2020 13:23
--- NOTE | 2020-12-20 10:40 | HMH.ITSHM ---
Current Home Medications as stated by this patient Basil Leal or customer success representative. []ASA OMEPRAZOLE NITRO LORATADINE HCTZ FLUTICASONE BISOPROLOL AMLODIPINE ALBUTEROL LOVASTATIN FLUOXETINE BENAZEPRIL
== END ==
PROVIDERS: PCP Nurse Practitioner Family; Visit Provider Nurse Practitioner Family
DX: R10.11 Right upper quadrant pain (principal); K82.4 Cholesterolosis of gallbladder
CPT/HCPCS: 78226; A9537

== ENCOUNTER → 2021-01-15 07:14 | Outpatient (CLI) | payer OTHER, SELFPAY ==
[2021-01-15 08:10] LABS: Basophils # 0.1 K/mm3 (0-0.2); Basophils % 0.7 % (0.1-2.0); Eosinophils # 0.1 K/mm3 (0.0-0.4); Eosinophils % 1.2 % (0.1-12.0); Hematocrit 48.4 % (42.0-52.0); Hemoglobin 15.7 g/dL (14.1-18.0); Lymphocytes # 1.9 K/mm3 (0.7-4.5); Lymphocytes % 25.7 % (10-50); Mean Corpuscular HGB Conc 32.5 g/dL (31.8-35.4); Mean Corpuscular Hemoglobin 29.2 pg (27.0-31.2); Mean Corpuscular Volume 89.9 fl (80-94); Mean Platelet Volume 8.1 fl (7.4-10.4); Monocytes % 12.7 % (1.7-9.3); Neutrophils # 4.5 K/mm3 (1.8-7.8); Neutrophils % 59.6 % (37.0-80.0); Platelet Count 241 K/mm3 (142-424); Red Blood Count 5.38 M/mm3 (4.60-6.20); Red Cell Distribution Width 14.2 % (11.5-17.5); White Blood Count 7.5 K/mm3 (4.8-10.8)
[2021-01-15 10:05] LABS: Chloride 102 mmol/L (98-107); Potassium 4.8 mmoL/L (3.5-5.1); Sodium 140 mmol/L (136-145)
[2021-01-15 10:08] LABS: Alanine Aminotransferase 17 U/L (12-78); Albumin Level 4.5 g/dl (3.5-5.0); Albumin/Globulin Ratio 1.6 (1.1-1.8); Alkaline Phosphatase 65 U/L (38-126); Anion Gap 12.8 mEq/L (5-15); Aspartate Amino Transferase 24 U/L (17-59); Bilirubin,Total 0.8 mg/dl (0.2-1.3); Blood Urea Nitrogen 27 mg/dl (9-20); Calcium 8.8 mg/dl (8.4-10.2); Carbon Dioxide 30 mmol/L (22.0-30.0); Estimated Glomerular Filt Rate 47 ml/min (>60); GFR (African American) 57 ML/MIN (>60); Globulin 2.8 g/dL (1.3-3.2); Glucose 112 mg/dl (74-100); Total Protein,Serum 7.3 g/dl (6.3-8.2)
== END ==
PROVIDERS: Visit Provider Surgery
DX: Z01.812 Encounter for preprocedural laboratory examination (principal); Z20.822 Contact with and (suspected) exposure to COVID-19; K82.9 Disease of gallbladder, unspecified
CPT/HCPCS: 36415; 80053; 85025; U0003

== ENCOUNTER 2021-01-18 08:29 | Day surgery (SDC) | payer OTHER, SELFPAY ==
[2021-01-13 11:00] VITALS: BMI 39.4
[2021-01-18] VITALS (13 sets, daily range): BP systolic 120–170; BP diastolic 68–79; PULSE 60–71; RESP 12–18; TEMP 36.3–40; O2SAT 92–98
--- NOTE | 2021-01-18 09:33 | HMH.ANESCL ---
[facility] Anesthesia Checklist - Patient Identification Patient Identification: Arm Band - Structural Data Admitted From: Home Planned Operative Procedure/s: Laparoscopic Cholecystectomy, Umbilical Hernia Repair Consent for Planned Operative Procedure(s) Verified: Yes Verified Documents: Surgical Consent, History and Physical - NPO Status Verified Time NPO: 00:00 - Additional verifications Anesthesia Reactions: No Hx Blood Transfusions: No Blood Transfusion Reaction: No - Airway Assessment C-Spine Mobility Assessed: Yes (mp2) TMJ Mobility Assessed: Yes Dentition: Good Dentition - Neurological Assessment Level of Consciousness: Awake, Alert - Anesthesia Plan Anesthesia Risk discussed: Yes Anesthesia Plan: Verified ASA Class: III Anesthesia Type: General [facility] History I have reviewed the patient's past medical history: Yes Medical History: Reports:: Coronary Artery Disease, Hyperlipidemia, Hypertension, Lung Disease (ALEXI-cpap hs) Denies:: Cancer, Diabetes Mellitus Type 1, Diabetes Mellitus Type 2, Internal Pacemaker, MRSA, Seizures *Have you ever received a pneumonia vaccine?: Yes *Have you received a flu vaccine this season?: No Other Medical History: Reports: Glaucoma, Other. Denies: Blood Transfusion Reaction Anesthesia experience/problems:: nac Laterality Cases: Left: Arthroscopy Knee Other Surgeries: Yes: Cardiac Catheterization, Other. No: Pacemaker Amputation: No Fractures: No - *Social History Last grade of school completed: Some college Smoking Status: Never smoker Alcohol Intake: never Alcohol Intake Frequency:: other Substance Use Type: denies use *Occupational Status:: employed Housing: house Household Members: spouse *Travel in the last 8 weeks: Inside the [facility] Family Hx:: Cancer, Diabetes
--- NOTE | 2021-01-18 13:11 | HMH.OPNOTE ---
Date of procedure: 01/18/21 Pre-op Diagnosis:: Gallbladder disease Umbilical hernia Post-op Diagnosis:: Same Procedure performed:: Laparoscopic cholecystectomy Primary repair of umbilical hernia Surgeon:: Arturo Cardozo MD DIGITAL MARKETING COORDINATOR:: Get Juan Anesthesia: GETA Estimated blood loss (mL): 20 Clinical Note:: Patient is a pleasant 65-year-old male. He is referred by Ilana Tovar for gallbladder. He has had some atypical right-sided chest pain for about 1 year. He has undergone thorough work-up and cardiology evaluations. He describes right-sided anterior chest pain. This seems to be worse when he is lying down. Is not related to any foods. Recently he did develop right upper quadrant pain. He is undergone gallbladder ultrasound which reveals two hyperechoic gallbladder polyps . He has hepatic steatosis. He underwent HIDA scan which reveals an ejection fraction of 16%. Patient was therefore referred for surgical consultation. I informed the patient that there are no guarantees that his right-sided chest pain is attributed to his gallbladder. However, given the findings of gallbladder polyps and abnormal ejection fraction cholecystectomy may be reasonable. He does have a small incidental umbilical hernia. I discussed the options with him. Plan will be to proceed with laparoscopic possibly open cholecystectomy with incidental umbilical hernia repair Operative findings:: He had a somewhat distended gallbladder. There is some mild hepatic steatosis. There is appreciable visceral adipose tissue. He had a small umbilical hernia with a defect measuring approximately 12 - 15 mm. Operative note:: Patient was taken to the operating room. He was positioned in a supine position. General anesthesia was induced. Abdomen was prepped and draped in the standard surgical fashion. Subumbilical skin incision was made. Dissection was carried down to the umbilical subdermis. Hernia was encountered. The peritoneum of the hernia sac was dissected free from the umbilical subdermis and open. There was herniated fatty tissues. This was dissected free to relatively unremarkable fascia. Excised tissue was sent as hernia sac. 0 Vicryl sutures were placed in the fascia. Blunt tipped Edgar type trocar was inserted and secured with the sutures. CO2 pneumoperitoneum was achieved to 15 mmHg. A 10 mm laparoscope was inserted and abdominal surveillance was carried out. He was positioned in reverse Trendelenburg with left side down. A couple 5 mm trochars were inserted in the right upper abdomen. 10 mm trocar was inserted in the epigastrium. Gallbladder was identified grasped retracted anteriorly and superiorly over the dome of the liver. 0 degree laparoscope was replaced with angled laparoscope to allow for visualization. Infundibulum/Jo's pouch of the gallbladder was retracted anterior laterally. Blunt dissection was carried out at the neck of the gallbladder. Ultimately the cystic duct and cystic artery were clearly identified, isolated. Cystic duct was multiply clipped and sharply divided. Cystic artery was carefully coagulated with GUALBERTO ultrasonic harmonic thais and divided. Gallbladder was dissected free from the liver in a retrograde fashion using GUALBERTO ultrasonic harmonic thais. There is minimal capsule avulsion of the liver with retraction of the gallbladder. Gallbladder was placed within an Endo Catch retrieval device and removed from the peritoneal cavity via the umbilical trocar site. Gallbladder fossa was then inspected. Electrocautery was used for hemostasis on the gallbladder fossa. Irrigation and suctioning was carried out until clear. Trochars were removed as CO2 pneumoperitoneum was evacuated. Fascia at the umbilicus was closed with multiple interrupted 0 Ethibond sutures. Local anesthetic was infiltrated. Skin incisions were closed with 4-0 Monocryl subcuticular fashion. Steri-Strips and dressings were applied. Conditio
--- NOTE | 2021-01-18 13:18 | HMH.ANESI ---
[facility] Anesthesia Record Part I Intake, IV Amount: 1,500 Estimated blood loss (mL): 0 Urine output (mL): 0 Blood Pressure: 141/77 SaO2: 94 Pulse Rate: 70 Respiratory Rate: 12 Temperature: 98.8 F Patient is:: Awake, Stable Stable to PACU at:: 13:15
--- NOTE | 2021-01-19 08:06 | HMH.ANESII ---
[facility] Anesthesia Record Part II Discharge Time: 13:45 Destination: Surgical Day Care (OP Surgery) PACU nurse assessment reviewed?: Yes Patient Condition:: Good Anesthesia Complications:: None Swallowing reflex intact?: Yes Cyanosis?: No Blood Pressure: 138/78 Pulse Rate: 62 Temperature: 98.8 F Mental Status: Alert & Oriented Pain level:: 0 Nausea and/or vomitting:: None Intake, IV Amount: 0
[2021-01-19 08:07] VITALS: BP 138/78; PULSE 62; TEMP 37.1
== END 2021-01-18 14:38 | disposition home or self-care (01) ==
LOC: OR 08:30
PROVIDERS: PCP Nurse Practitioner Family; Visit Provider Surgery
PROC: 0FT44ZZ Resection of Gallbladder, Percutaneous Endoscopic Approach (ICD-10-PCS; CPT 47562; principal; 2021-01-18 09:45)
DX: K82.9 Disease of gallbladder, unspecified (principal); K42.9 Umbilical hernia without obstruction or gangrene; K82.4 Cholesterolosis of gallbladder; I25.10 Atherosclerotic heart disease of native coronary artery without angina pectoris; E78.5 Hyperlipidemia, unspecified; I10 Essential (primary) hypertension; G47.33 Obstructive sleep apnea (adult) (pediatric); Z80.9 Family history of malignant neoplasm, unspecified; Z83.3 Family history of diabetes mellitus; Z79.82 Long term (current) use of aspirin; Z79.899 Other long term (current) drug therapy; Z91.018 Allergy to other foods
CPT/HCPCS: 47562; 49652; 96374; J2405; J2710

== ENCOUNTER → 2021-04-29 09:38 | Outpatient (CLI) | payer OTHER, SELFPAY ==
--- NOTE | 2021-04-29 09:43 | XR_ITS ---
PROCEDURE: XR CERVICAL SPINE 5V CLINICAL INDICATION: CERVICALGIA, DECREASED ROM OF NECK COMPARISON: CR CS5 CERVICAL SPINE 4 OR 5 VIEWS from 07/31/2013 FINDINGS: There is normal alignment. Mild multilevel degenerative disc disease is present from C2-C7 most severe at C5-C6 and C6-C7. Small anterior osteophytes are present. Foraminal narrowing is present on the right at C4-C5 C5-C6 and to lesser degree at C6-C7 and on the left at C3-C4 and C6-C7. No fracture or dislocation. Facet hypertrophic changes are present from C3-C7. There is minimal cervical thoracic curvature convex left. Other findings:None. IMPRESSION: Cervical spondylosis as described above. The degenerative disc disease has slightly progressed at C5-C6 and C6-C7 since 07/31/2013 Dictated by: Raul Gracia MD 04/29/2021 10:01 Raul Gracia MD in [place] 04/29/2021 10:01
== END ==
PROVIDERS: PCP Nurse Practitioner Family; Visit Provider Nurse Practitioner Family
DX: M54.2 Cervicalgia (principal); R29.898 Other symptoms and signs involving the musculoskeletal system
CPT/HCPCS: 72050

== ENCOUNTER → 2021-05-17 15:02 | Outpatient (CLI) | payer OTHER, SELFPAY ==
--- NOTE | 2021-05-17 15:09 | MR_ITS ---
PROCEDURE: MR CERVICAL SPINE WO CON CLINICAL INDICATION: DECREASED ROM OF NECK, CERVICALGIA Severe pain with movement with limited range of motion COMPARISON: CR XR CERVICAL SPINE 5V from 04/29/2021 TECHNIQUE: Standard multiplanar multiecho sequences are performed without contrast. 3-D MIP and myelographic images are also rendered and reviewed FINDINGS: Craniocervical junction has an unremarkable appearance. C2-C3: Facet and uncovertebral hypertrophy on the right causing moderate right-sided foraminal narrowing with some impingement upon the exiting nerve root. Degenerative disc disease C3-C4: Degenerative disc disease with minimal bulging disc and small uncovertebral disc osteophyte complexes slightly greater on the left with bilateral foraminal narrowing left greater than right with impingement upon the exiting nerve roots left greater than right. Facet hypertrophic changes are also present on the left. C4-C5: Degenerative disc disease with minimal bulging disc. Left-sided facet hypertrophic change with severe narrowing of the left neural foramen and impingement upon the exiting nerve root. There is canal stenosis at this level at 9 mm. C5-C6: Degenerative disc disease. There are prominent anterior osteophytes. Mild bulging disc with small central disc protrusion and with right paracentral, foraminal and lateral disc osteophyte complex. There is severe narrowing of the neural foramen on both sides. There is canal stenosis at 9 mm with mild flattening of the cord anteriorly and on the right. Right-sided lateral recess narrowing C6-C7: Degenerative disc disease with bulging disc/disc osteophyte complex eccentric toward the right causing severe canal stenosis of 7 mm with flattening of the cord anteriorly and on the right and with severe right-sided foraminal narrowing. Right-sided lateral recess narrowing C7-T1: Unremarkable. T1-T2: 2 mm anterolisthesis of T1 with mild kyphosis No extruded herniated disc is evident. No acute fracture or dislocation. Unremarkable signal of the spinal cord. IMPRESSION: Abnormal MRI of the cervical spine with multilevel cervical spondylosis with foraminal narrowing, lateral recess narrowing, canal stenosis with disc osteophyte complexes and impingement upon the cord. Please see above for detailed description at each level. Dictated by: Raul Gracia MD 05/18/2021 09:00 Raul Gracia MD in [place] 05/18/2021 09:00
== END ==
PROVIDERS: PCP Nurse Practitioner Family; Visit Provider Nurse Practitioner Family
DX: M54.2 Cervicalgia (principal); M47.812 Spondylosis without myelopathy or radiculopathy, cervical region; R29.898 Other symptoms and signs involving the musculoskeletal system
CPT/HCPCS: 72141; 76376

== ENCOUNTER → 2021-09-08 07:53 | Outpatient (CLI) | payer MEDICARE, SELFPAY ==
[2021-09-08 09:26] LABS: Alanine Aminotransferase 25 U/L (12-78); Albumin Level 4.3 g/dl (3.5-5.0); Alkaline Phosphatase 53 U/L (38-126); Aspartate Amino Transferase 30 U/L (17-59); Bilirubin,Direct 0.1 mg/dl (0.0-0.4); Bilirubin,Indirect 0.8 mg/dL (0.0-0.9); Bilirubin,Total 0.9 mg/dl (0.2-1.3); Bilirubin,Unconjugated 0.7 mg/dL (0.0-1.1); Chol/HDL Ratio 4.9 (1-3.5); Cholesterol 190 mg/dl (140-200); HDL Cholesterol 39 mg/dl (40-60); Total Protein,Serum 6.7 g/dl (6.3-8.2); Triglycerides 150 mg/dl (30-150); VLDL Cholesterol 30 mg/dL (0-40)
[2021-09-08 09:37] LABS: Direct LDL Cholesterol 120.99 mg/dL (100-129)
== END ==
PROVIDERS: PCP Family Medicine; Visit Provider Urology
DX: E78.2 Mixed hyperlipidemia (principal); I25.10 Atherosclerotic heart disease of native coronary artery without angina pectoris
CPT/HCPCS: 36415; 80061; 80076

== ENCOUNTER → 2022-05-24 09:26 | Outpatient (CLI) | payer MEDICARE, MEDICAID, SELFPAY ==
--- NOTE | 2022-05-24 09:29 | CA_ITS ---
APPROVED REPORT EXAM: Comprehensive 2D, Doppler, and color-flow Echocardiogram Radiologic Technology Teacher: Sue Garcia RVT Ht: 5 ft 6 in Wt: 244lbs BSA: 2.18 BP: 127/53 mmHg Indications: CAD,ALEXI,DD,BRADYCARDIA,ABN EKG,HTN,HLD,GERD 2D Dimensions LVOT 1.92 cm (M/F) 1.5-2.5 LA Volume 25.40 mL LA Volume Index 11.70 mL/m2 (M/F) 16-34 M-Mode Dimensions RVDd 3.25 cm (0.9-2.6) LA Diam 4.36 cm (1.9-4.0) LVDd 4.94 cm (3.5-5.7) Ao Diam 2.60 cm (2.0-3.7) LVDs 2.61 cm (3.5-5.7) IVSd 0.92 cm (0.6-1.1) PWd 0.92 cm (0.6-1.1) EF (Teich) 78.40% FS 47.20% EDV (Teich) 115.00 mL TAPSE 2.02 (<1.7) ESV (Teich) 24.80 mL LV Diastology E Decel Time 243.00 (160-240 msec) E/A Ratio 0.8 MED E' 6.40 (< 7 cm/sec) E'/MED E' Ratio 10.45 (>14) LAT E' 8.70 (<10 cm/sec) E/LAT E' Ratio 7.69 (>14) Aortic Valve AI PHT 1345.00 ms AO Peak GR. 10.50 mmHg Mitral Valve MV E Max Junior. 67.00 (40-130 cm/s) MV A Velocity 89.00 (40-130 cm/s) E/A Ratio 0.75 MV Decel. Time 243.00 (160-240 ms) MV PHT 71.00 ms Pulmonary Valve PV Peak Velocity 99.00 (50-150 cm/s) Tricuspid Valve TR P. Velocity 269.00 cm/s RAP Estimate 10.00 mmHg RVSP 38.90 mmHg Left Ventricle Left atrium is mildly enlarged, left ventricle is normal size, mild concentric left ventricular hypertrophy, estimated ejection fraction 55% with no regional wall motion abnormality. Grade 1 diastolic dysfunction seen without tissue Doppler evidence of raise left atrial pressure. Right Ventricle Right atrium and right ventricle are mildly enlarged with normal contractility. Aortic Valve Aortic valve is thickened and calcified without aortic stenosis, there is mild aortic insufficiency. Mitral Valve Mitral valve is grossly normal, there is trace mitral regurgitation. Tricuspid Valve Tricuspid valve grossly normal, there is trace tricuspid regurgitation. Pulmonic Valve Pulmonic valve is poorly visualized. Great Vessels Aortic root is normal size. Inferior vena cava is normal size with normal inspiratory collapse Pericardium No significant pericardial effusion noted. Conclusion 1. Mild biatrial enlargement, normal left ventricular size, mild concentric left ventricular hypertrophy, estimated ejection fraction 55% with no regional wall motion abnormality, grade 1 diastolic dysfunction seen without tissue Doppler evidence of raise left atrial pressure. 2. Mildly enlarged right ventricle with normal contractility. 3. Mild aortic, trace mitral and tricuspid regurgitation. 4. No significant pericardial effusion. 5. Inferior vena cava is normal size with normal inspiratory collapse. Electronically signed by : Graham Tilley MD 05/25/2022 06:26:44
== END ==
PROVIDERS: PCP Nurse Practitioner Family; Visit Provider Nurse Practitioner
DX: E78.2 Mixed hyperlipidemia (principal); G47.33 Obstructive sleep apnea (adult) (pediatric); I10 Essential (primary) hypertension; I25.10 Atherosclerotic heart disease of native coronary artery without angina pectoris; I35.1 Nonrheumatic aortic (valve) insufficiency; K21.9 Gastro-esophageal reflux disease without esophagitis; R00.1 Bradycardia, unspecified; R94.31 Abnormal electrocardiogram [ECG] [EKG]
CPT/HCPCS: 93306

== ENCOUNTER → 2022-09-07 10:44 | Outpatient (CLI) | payer MEDICARE, MEDICAID, SELFPAY ==
[2022-09-07 12:41] LABS: Alanine Aminotransferase 24 U/L (12-78); Albumin Level 4.7 g/dl (3.5-5.0); Alkaline Phosphatase 58 U/L (38-126); Aspartate Amino Transferase 30 U/L (17-59); Bilirubin,Direct 0.1 mg/dl (0.0-0.4); Bilirubin,Indirect 0.5 mg/dL (0.0-0.9); Bilirubin,Total 0.6 mg/dl (0.2-1.3); Bilirubin,Unconjugated 0.5 mg/dL (0.0-1.1); Chol/HDL Ratio 4.4 (1-3.5); Cholesterol 161 mg/dl (140-200); HDL Cholesterol 37 mg/dl (40-60); Total Protein,Serum 7.6 g/dl (6.3-8.2); Triglycerides 127 mg/dl (30-150); VLDL Cholesterol 25 mg/dL (0-40)
[2022-09-07 12:52] LABS: Direct LDL Cholesterol 89.37 mg/dL (100-129)
== END ==
PROVIDERS: PCP Nurse Practitioner Family; Visit Provider Physician Assistant
DX: E78.2 Mixed hyperlipidemia (principal); I10 Essential (primary) hypertension; I25.10 Atherosclerotic heart disease of native coronary artery without angina pectoris; I35.1 Nonrheumatic aortic (valve) insufficiency; R94.31 Abnormal electrocardiogram [ECG] [EKG]
CPT/HCPCS: 36415; 80061; 80076

== ENCOUNTER 2023-02-22 15:27 | Emergency (ER) | payer MEDICARE, SELFPAY ==
[2023-02-22 15:27] VITALS: BP 150/70; PULSE 61; RESP 20; TEMP 36.9; O2SAT 98; BMI 36.5
--- NOTE | 2023-02-22 15:28 | ECG_ITS ---
APPROVED REPORT Exam: Resting ECG HR:60 bpm ECG Measurements Heart Rate 60 AXES IL 210 P 62 QRSd 121 QRS -28 QT 423 T 54 QTc 424 Conclusion SINUS RHYTHM WITH FIRST DEGREE AV BLOCK BORDERLINE LEFT AXIS DEVIATION [QRS AXIS < -20] MODERATE INTRAVENTRICULAR CONDUCTION DELAY [110+ ms QRS DURATION] ABNORMAL ECG UNCONFIRMED REPORT Electronically signed by : Carlos Mahan MD 02/23/2023 17:17:28
--- NOTE | 2023-02-22 15:36 | XR_ITS ---
FINAL REPORT CLINICAL HISTORY: rt sided chest pain, shortness of breath COMPARISON: 11/29/2020 FINDINGS: Two views of the chest were obtained. The heart size and pulmonary vascularity are within normal limits. The mediastinum is normal. Mild right midlung opacities are new and may represent atelectasis or pneumonia.. There is no pneumothorax. The bony thorax is intact. IMPRESSION: New right midlung opacities may represent atelectasis or pneumonia. Recommend follow-up radiographs. Reviewed, Interpreted and Dictated by Arturo Medrano III, MD Transcribed by Sarah Aldridge Authenticated and [facility]
[2023-02-22 15:37] VITALS: PULSE 61
[2023-02-22 15:48] LABS: Basophils % 0.3 % (0.1-2.0); Eosinophils # 0.2 K/mm3 (0.0-0.4); Eosinophils % 2.7 % (0.1-12.0); Hematocrit 44.4 % (42.0-52.0); Hemoglobin 14.3 g/dL (14.1-18.0); Lymphocytes % 30.9 % (10-50); Mean Corpuscular HGB Conc 32.3 g/dL (31.8-35.4); Mean Corpuscular Hemoglobin 28.5 pg (27.0-31.2); Mean Corpuscular Volume 88.1 fl (80-94); Mean Platelet Volume 8.8 fl (7.4-10.4); Monocytes # 0.7 K/mm3 (0.1-1.0); Neutrophils # 3.7 K/mm3 (1.8-7.8); Neutrophils % 56.1 % (37.0-80.0); Platelet Count 207 K/mm3 (142-424); Red Blood Count 5.04 M/mm3 (4.60-6.20); Red Cell Distribution Width 14.7 % (11.5-17.5); White Blood Count 6.5 K/mm3 (4.8-10.8)
[2023-02-22 15:53] LABS: Chloride 102 mmol/L (98-107)
[2023-02-22 15:54] LABS: Potassium 3.7 mmoL/L (3.5-5.1); Sodium 140 mmol/L (136-145)
[2023-02-22 15:56] LABS: Alanine Aminotransferase 31 U/L (12-78); Aspartate Amino Transferase 35 U/L (17-59); Blood Urea Nitrogen 19 mg/dl (9-20); Creatinine Clearance Estimated 78 mL/min (50-200); Estimated Glomerular Filt Rate 51 ml/min (>60); GFR (African American) 61 ML/MIN (>60)
[2023-02-22 15:57] LABS: Albumin Level 4.3 g/dl (3.5-5.0); Albumin/Globulin Ratio 1.4 (1.1-1.8); Alkaline Phosphatase 56 U/L (38-126); Anion Gap 11.7 mEq/L (5-15); Bilirubin,Total 0.4 mg/dl (0.2-1.3); Calcium 9.2 mg/dl (8.4-10.2); Carbon Dioxide 30 mmol/L (22.0-30.0); Glucose 190 mg/dl (74-100); Total Protein,Serum 7.3 g/dl (6.3-8.2)
[2023-02-22 16:00] LABS: Activated Partial Thrombo Time 27.1 seconds (22.8-30.6); INR 1.05 (0.9-1.1); Prothrombin Time 11.3 seconds (10.1-12.5)
[2023-02-22 16:15] LABS: Troponin I < 0.01 ng/ml (0.00-0.034)
[2023-02-22 16:30] VITALS: BP 141/69; PULSE 64; RESP 14; O2SAT 98
[2023-02-22 17:00] VITALS: BP 146/73; PULSE 64; O2SAT 98
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
[2023-02-22 18:39] VITALS: BP 154/68; PULSE 54; RESP 18; TEMP 36.8; O2SAT 97
== END 2023-02-22 18:40 | disposition home or self-care (01) ==
PROVIDERS: Emergency Provider Family Medicine; PCP Nurse Practitioner Family
DX: R07.9 Chest pain, unspecified (principal); R06.02 Shortness of breath; I25.10 Atherosclerotic heart disease of native coronary artery without angina pectoris; I44.0 Atrioventricular block, first degree; K21.9 Gastro-esophageal reflux disease without esophagitis; G47.33 Obstructive sleep apnea (adult) (pediatric)
CPT/HCPCS: 71046; 80053; 84484; 85025; 85610; 85730; 93005; 99285

== ENCOUNTER → 2023-03-15 07:29 | Outpatient (CLI) | payer MEDICARE, SELFPAY ==
--- NOTE | 2023-03-15 07:29 | NM_ITS ---
APPROVED REPORT Exam: Nuclear Stress Test Indication: chest pain..soa..fatigue Patient Location: Outpatient Stress Tech: Keisha LATHAM Tech:DESHAWN See RT(R)(N) Ht: 5 ft 5 in Wt: 235 lbs HR: 60 bpm BP: 160/73 mmHg BSA: 2.12 m2 TID: 1.11 BMI: 39.1 History: chest pain..soa..fatigue Procedure: Patient received 0.4 mg of intravenous Lexiscan, resting heart rate 60 bpm, resting blood pressure 160/73 mmHg, with Lexiscan maximum heart rate achieved was 73 bpm which is 85 % of the maximum predicted heart rate and blood pressure was 160/73 mmHg. With Lexiscan, patient denied any complaint of chest pain. Cardiac Stress and Resting SPECT Images: Cardiac Stress and Resting SPECT images were obtained using technetium 99m Myoview 30.8 mCi stress and 10.25 mCi at rest. Raw images demonstrate possible RV dilation. Resting and stress imaging in supine position demonstrate a medium-sized, mild, fixed perfusion defect in the inferior LV wall. This is no longer visualized with prone stress imaging. Findings are suggestive of diaphragmatic attenuation. Gated imaging demonstrates normal global and regional LV systolic function. LVEF is calculated at 62%. Conclusion: Possible RV dilation. Resting and stress imaging in supine position demonstrate a medium-sized, mild, fixed perfusion defect in the inferior LV wall. This is no longer visualized with prone stress imaging. Findings are suggestive of diaphragmatic attenuation. Gated imaging demonstrates normal global and regional LV systolic function. LVEF is calculated at 62%. Electronically signed by : Lana Martinez, 03/18/2023 14:55:07
--- NOTE | 2023-03-15 10:31 | CA_ITS ---
APPROVED REPORT Exam: Pharmacologic Technologist: Keisha Lou, Ht: 5 ft 6 in Wt: 239 lbs BSA: 2.16 m2 HR: 59 bpm BP: 160/73 mmHg Rhythm: Sinus bradycardia Medical History Medications: Amlodipine,,,,, Aspirin,,,,, HCTZ,,,,, Crestor,,,,, Benazepril,,,,, Albuterol,,,,, BisOPROLOL Fumarate,,,,, Nitroglycerin,,,,, OmPEprazole,,,,, Stress Test Details Test: LEXISCAN Reason for pharmacologic stress test: physical limitation. HR Resting HR: 60 bpm Max Heart Rate (APMHR): 154 bpm Max HR Achieved: 73 bpm Target HR (85% APMHR): 131 bpm % of APMHR: 47 Recovery HR: 59 bpm BP Resting BP: 160.0/73.0 mmHg Max BP: 160.0/73.0 mmHg Recovery BP: 131.0/67.0 mmHg ECG Resting ECG: sinus bradycardia Stress ECG: No change Arrhythmia: None Clinical Exercise duration: 04:00 min Highest Stage Achieved: Exercise capacity: n/a METs Stress ECG Conclusion Switched from exercise due to blumted HR response on Bisoprolol. Symptoms: SOA, head discomfort. No CP. Arrhythmias/Ectopy: None ST-T Changes: No significant changes. Conclusion: Unremarkable Lexiscan stress. Myoview images reported separately. Test Summary REST . . . . . . . Resting REST 02:46 . . 60 . 160/ 73 . . Stage 1 01:00 . . 72 . 148/ 77 . . Stage 2 01:00 . . 71 . 140/ 63 . . Stage 3 01:00 . . 70 . 130/ 68 . . Stage 4 01:00 . . 65 . 134/ 73 . Stop exercise at 04:00 RECOVERY 01:00 . . 67 . . . . RECOVERY 02:00 . . 62 . 140/ 74 . . RECOVERY 03:00 . . 62 . 140/ 74 . . RECOVERY 04:00 . . 58 . 131/ 67 . . RECOVERY 04:18 . . 60 . 131/ 67 . . Electronically signed by : Lana Martinez, 03/18/2023 14:50:33
== END ==
LOC: RAD 07:29
PROVIDERS: PCP Nurse Practitioner Family; Visit Provider Nurse Practitioner Family
DX: E78.5 Hyperlipidemia, unspecified (principal); G47.33 Obstructive sleep apnea (adult) (pediatric); I10 Essential (primary) hypertension; I25.10 Atherosclerotic heart disease of native coronary artery without angina pectoris; I35.1 Nonrheumatic aortic (valve) insufficiency; K21.9 Gastro-esophageal reflux disease without esophagitis; R07.9 Chest pain, unspecified; R94.31 Abnormal electrocardiogram [ECG] [EKG]
CPT/HCPCS: 78452; 93017; A9502; J2785

== ENCOUNTER → 2023-03-27 09:50 | Outpatient (CLI) | payer MEDICARE, SELFPAY ==
--- NOTE | 2023-03-27 09:52 | CA_ITS ---
APPROVED REPORT EXAM: Comprehensive 2D, Doppler, and color-flow Echocardiogram Dry Wall Applicator: Mayra Anderson RT(R) Ht: 5 ft 6 in Wt: 230lbs BSA: 2.12 BP: 130/52 mmHg Indications: SOB, CP, HTN, hyperlipidemia, CAD, ALEXI, abn EKG, obesity 2D Dimensions Aortic Root 1.93 cm M: 3.1 - 3.7 LVEF (Arrington's) 64.40 % M: 52 - 72 LV Volume 89.80 mL M: 62 - 150 LV Volume Index 42.36 mL/m2 M: 34 - 74 LA Volume 47.90 mL LA Volume Index 22.59 mL/m2 (M/F) 16-34 M-Mode Dimensions RVDd 3.22 cm (0.9-2.6) LA Diam 4.43 cm (1.9-4.0) LVDd 5.04 cm (3.5-5.7) Ao Diam 2.60 cm (2.0-3.7) LVDs 3.81 cm (3.5-5.7) IVSd 0.89 cm (0.6-1.1) PWd 0.81 cm (0.6-1.1) EF (Teich) 48.30% FS 24.40% EDV (Teich) 120.50 mL ESV (Teich) 62.30 mL LV Diastology E Decel Time 220.00 (160-240 msec) E/A Ratio 0.9 MED E' 5.90 (< 7 cm/sec) E'/MED E' Ratio 14.53 (>14) LAT E' 9.40 (<10 cm/sec) E/LAT E' Ratio 9.12 (>14) Aortic Valve AI PHT 963.00 ms Mitral Valve MV E Max Junior. 86.00 (40-130 cm/s) MV A Velocity 92.00 (40-130 cm/s) E/A Ratio 0.93 MV Decel. Time 220.00 (160-240 ms) MV PHT 64.00 ms Tricuspid Valve TR P. Velocity 264.00 cm/s RAP Estimate 10.00 mmHg RVSP 38.00 mmHg Left Ventricle The left ventricle is normal size. The left ventricular systolic function is normal. The left ventricular ejection fraction is within the normal range. There is normal left ventricular wall thickness. There is normal LV segmental wall motion. The left ventricular diastolic function is normal. LVEF is 65-70%. Right Ventricle The right ventricle is normal size. The right ventricular systolic function is normal. Atria The left atrium size is normal. The right atrium size is normal. Aortic Valve The aortic valve is mildly thickened. There is no aortic valvular stenosis. Mild aortic regurgitation. Mitral Valve The mitral valve is normal in structure. No evidence of mitral valve stenosis. Trace mitral regurgitation. Tricuspid Valve The tricuspid valve is thin and pliable. Mild tricuspid regurgitation. RVSP is 30-35 mmHg. Pulmonic Valve The pulmonary valve is normal in structure. Trace pulmonic regurgitation. Great Vessels The aortic root is normal in size. The ascending aorta is normal in size. IVC is normal in size and collapses >50% with inspiration. Pericardium There is no pericardial effusion. Other Information Study Quality: Fair Conclusion Normal biventricular systolic function. No significant valvular disease. RVSP 30-35 mmHg Electronically signed by : Lana Martinez, 03/28/2023 12:19:01
== END ==
LOC: RT 09:51
PROVIDERS: PCP Nurse Practitioner Family; Visit Provider Nurse Practitioner Family
DX: E78.5 Hyperlipidemia, unspecified (principal); G47.33 Obstructive sleep apnea (adult) (pediatric); I10 Essential (primary) hypertension; I25.10 Atherosclerotic heart disease of native coronary artery without angina pectoris; I35.1 Nonrheumatic aortic (valve) insufficiency; K21.9 Gastro-esophageal reflux disease without esophagitis; R07.9 Chest pain, unspecified; R94.31 Abnormal electrocardiogram [ECG] [EKG]
CPT/HCPCS: 93306

== ENCOUNTER → 2023-04-05 10:02 | Outpatient (CLI) | payer MEDICARE, SELFPAY ==
[2023-04-05 12:05] LABS: Chloride 107 mmol/L (98-107); Sodium 141 mmol/L (136-145)
[2023-04-05 12:08] LABS: Blood Urea Nitrogen 32 mg/dl (9-20); Estimated Glomerular Filt Rate 47 ml/min (>60); GFR (African American) 57 ML/MIN (>60)
[2023-04-05 12:09] LABS: Calcium 9.5 mg/dl (8.4-10.2); Carbon Dioxide 24 mmol/L (22.0-30.0); Glucose 84 mg/dl (74-100)
== END ==
PROVIDERS: PCP Nurse Practitioner Family; Visit Provider Nurse Practitioner Family
DX: E78.5 Hyperlipidemia, unspecified (principal); G47.33 Obstructive sleep apnea (adult) (pediatric); I10 Essential (primary) hypertension; I20.8 Other forms of angina pectoris; I35.1 Nonrheumatic aortic (valve) insufficiency; K21.9 Gastro-esophageal reflux disease without esophagitis; R94.31 Abnormal electrocardiogram [ECG] [EKG]
CPT/HCPCS: 36415; 80048

== ENCOUNTER → 2023-05-04 08:09 | Outpatient (CLI) | payer MEDICARE, SELFPAY ==
[2023-05-04 09:27] LABS: Anion Gap 14.9 mEq/L (5-15); Blood Urea Nitrogen 32 mg/dl (9-20); Calcium 9.3 mg/dl (8.4-10.2); Carbon Dioxide 26 mmol/L (22.0-30.0); Chloride 105 mmol/L (98-107); Estimated Glomerular Filt Rate 47 ml/min (>60); GFR (African American) 57 ML/MIN (>60); Glucose 115 mg/dl (74-100); Potassium 4.9 mmoL/L (3.5-5.1); Sodium 141 mmol/L (136-145)
== END ==
PROVIDERS: PCP Nurse Practitioner Family; Visit Provider Nurse Practitioner
DX: G47.62 Sleep related leg cramps (principal)
CPT/HCPCS: 36415; 80048

== ENCOUNTER 2023-08-29 17:54 | Emergency (ER) | payer MEDICARE, SELFPAY ==
--- NOTE | 2023-08-29 18:29 | XR_ITS ---
PROCEDURE INFORMATION: Exam: XR Right Shoulder Exam date and time: 08/29/2023 6:26 PM Age: 67 years old Clinical indication: Pain; Shoulder; Right TECHNIQUE: Imaging protocol: Radiologic exam of the right shoulder. Views: 2 or more views. COMPARISON: CR XR CHEST 2V 02/22/2023 3:52 PM FINDINGS: Bones/joints: Osseous alignment is normal. No acute fracture. Mild degenerative changes in the acromioclavicular joint. Glenohumeral joint appears normal. Soft tissues: Normal. IMPRESSION: No acute abnormality
[2023-08-29 18:45] VITALS: BP 131/78; PULSE 78; RESP 18; TEMP 36.6; O2SAT 98; BMI 35.6
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
[2023-08-29] MEDS: DEXAMETHASONE 4MG/ML 1ML VIAL 8 MG IM (19:09)
[2023-08-29 19:34] VITALS: BP 131/78; PULSE 78; RESP 18; TEMP 36.6; O2SAT 98
== END 2023-08-29 19:33 | disposition home or self-care (01) ==
PROVIDERS: Emergency Provider Nurse Practitioner Family; PCP Nurse Practitioner Family
DX: M25.511 Pain in right shoulder (principal); M67.911 Unspecified disorder of synovium and tendon, right shoulder; X50.0XXA Overexertion from strenuous movement or load, initial encounter; I25.119 Atherosclerotic heart disease of native coronary artery with unspecified angina pectoris; I11.9 Hypertensive heart disease without heart failure; E78.5 Hyperlipidemia, unspecified
CPT/HCPCS: 73030; 96372; 99204; 99212; G0463

== ENCOUNTER 2023-09-25 17:26 | Outpatient (CLI) | payer MEDICARE, SELFPAY ==
--- NOTE | 2023-09-25 17:27 | MR_ITS ---
FINAL REPORT CLINICAL HISTORY: Right shoulder pain and decrease in ROM COMPARISON: None FINDINGS: Multiplanar MR imaging of the right shoulder was performed without contrast. There is a focal full-thickness tear at the footprint of the supraspinatus tendon measuring 11 mm in AP dimension. There is a partial tear of the articular surface of the infraspinatus tendon less than 50% thickness. There is mild AC joint arthrosis. There is spurring along the undersurface of the acromion. A small amount of fluid is seen in the subacromial/subdeltoid bursa. There is a tear of the anterior inferior labrum with paralabral cyst measuring approximately 13 mm. The long head of the biceps tendon is intact. No significant glenohumeral joint effusion is seen. There is no evidence of fracture or dislocation. The musculature is intact. There is no evidence of soft tissue mass. IMPRESSION: Tears of the supraspinatus tendon, infraspinatus tendon, and labrum as above. Reviewed, Interpreted and Dictated by Arturo Medrano III, MD Transcribed by Sarah Aldridge Authenticated and . [facility]
== END 2023-09-25 23:59 ==
LOC: RAD 17:27
PROVIDERS: PCP Nurse Practitioner Family; Visit Provider Nurse Practitioner Family
DX: M25.511 Pain in right shoulder (principal); M25.611 Stiffness of right shoulder, not elsewhere classified; S49.91XA Unspecified injury of right shoulder and upper arm, initial encounter
CPT/HCPCS: 73221

== ENCOUNTER 2023-11-01 11:38 | Outpatient (CLI) | payer MEDICARE, SELFPAY ==
--- NOTE | 2023-11-01 11:39 | CT_ITS ---
APPROVED REPORT Patient Accounts Specialist: CLINICAL INDICATION Chest Pain TECHNIQUE Image Acquisition: A 128 slice MDCT scanner (ROSTRa View) was used for data acquisition. A noncontrast coronary calcium scan was performed. A CT attenuation threshold of 130 Hounsfield units (HU) was used for the detection of calcium in contiguous voxels of 1 sq mm in area to be counted as individual lesions. Bolus tracking in the ascending aorta with a threshold of 180 HU was performed. Immediately afterwards, ECG synchronized cardiac CT was then performed from the cardiac base to apex using retrospective gating with ECG tube current modulation. A total of 85 mL of Isovue 370 mg/mL contrast medium was administered at 5 mL/sec followed by a saline flush using a biphasic injection protocol. A tube voltage of 120 KVp was used. The patient received the following medications prior to the cardiac CT. 0.8 mg of sublingual nitroglycerin The average heart rate at the time of acquisition was 58 bpm and regular. Image Reconstruction Transaxial images were reconstructed at 0.67 mm slide thickness. Data was reviewed interactively on an advanced workstation capable of 2 and 3-dimensional displays in all conventional reconstruction formats, including multiplanar reformations, maximum intensity projections, curved multiplanar reformations, and volume rendered reconstructions. When applicable, selected routine images describing the relevant coronary anatomy and pathology were saved and sent to PACS. Complications None Technical Quality Overall image quality was good. Coronary artery opacification was adequate. Total DLP (Dose-Length Product) is 1028.5 mGy-cm. The reported value represents the total of one or more individual components during the CT acquisition of this date and at this time, and as such, the same value may appear in more than one CT report depending on the interpreting/reporting physicians. COMPARISON None FINDINGS CT Coronary Calcium Scoring LMA (Left Main Artery) = 2 LAD (Left Anterior Descending) = 422 LCX (Left Coronary Circumflex) = 6 RCA (Right Coronary Artery) = 28 Total Calcium Score = 458 using the AJ-130 method. The observed calcium score of 458 is at 77th percentile for subjects of the same age, sex, and race/ethnicity. The interpretation of the calcium heart score is based on the following continuum*: 0 = no calcified plaque detected (risk of coronary artery disease is very low ??? less than 5%) 1-10 = calcium detected in extremely minimal levels (risk of coronary diseases is still low ??? less than 10%) 11-100 = mild levels of plaque detected with certainty (mild or minimal narrowing of heart arteries is likely) 101-400 = definite,at least moderate levels of plaque detected (relatively high risk of a heart attack within 3-5 years) >401-999 = extensive levels of plaque detected (high risk of heart attack, high levels of vascular disease are present, high likelihood of at least one significant coronary narrowing) *The calcium heart score quantifies the burden of coronary calcification/plaque in the coronary arteries. The calcium heart score is not able to evaluate the presence or burden of non-calcified (i.e. soft) plaque. There is also calcification in the transverse aorta and descending thoracic aorta. There is no identifiable calcification in the aortic valve, mitral annulus or mitral valve, pericardium, or myocardium. Coronary CT Angiography The coronary arterial system is right dominant. Quantitative Stenosis Grading: Left Main (LM): The left main originates normally from the left sinus of Valsalva. The LM bifurcates into the left anterior descending artery and left circumflex artery. There is mild calcified plaque in the LM, but with no evidence of luminal stenosis. Left Anterior Descending (LAD) and Diagonal Branches: The LAD gives off 4 diagonal branches. There is calcification along the proximal and mid LAD, with mixed plaque present in both segments with up to 25-49% luminal stenosis. There is no evidence of LAD-myocardial bridge. Left Circumflex (LCX) and Obtuse Marginals (OM): The LCX gives off 1 Obtuse Marginal (OM) branch. There is mild calcified plaque in the LCx, but with no evidence of luminal stenosis. Right Coronary Artery (RCA): The RCA originates normally from the right sinus of Valsalva. The RCA gives off a posterior descending artery (PDA) and posterolateral (PL) branches. There is mild calcified plaque in the RCA with mild luminal irregularities but no luminal stenosis. Non-Coronary Cardiac Findings: Analysis of the left ventricular (LV) structure and function was performed after 3-D reconstruction of the LV from axial images, with user-corrected automatic contouring for assessment of LV volumes and user-defined reconstruction from oblique planes for measurement of 3-D cardiac structure and function. -The left ventricle systolic function is normal. -There is no left atrial appendage filling defect. Two right pulmonary veins and two left pulmonary veins drain normally into the left atrium. -No pericardial thickening or calcification. -Central and branch pulmonary arteries in the [id number] are unremarkable. -Thoracic aorta within the visualized thoracic aortic-branches in the [id number] is unremarkable. Extracardiac Structures No significant extra-cardiac findings. Note, however, that this study is focused on the cardiac findings. IMPRESSION -Presence of severe coronary calcification with an Agatston score = 458 using the AJ-130 method. -The observed calcium score of 458 is at 77th percentile for subjects of the same age, sex, and race/ethnicity. -Multivessel atherosclerotic plaque is present, most notably in the proximal and mid LAD (with presence of up to 25-49% luminal stenosis). -CAD-RADS 2. Management recommendations per ACC/AHA guidelines*, as clinically appropriate. -The left ventricle systolic function is normal. *Recommendations: CAD RADS 0: Reassurance. Consider non-atherosclerotic causes of chest pain. CAD RADS 1: Consider non-atherosclerotic causes of chest pain. Consider preventive therapy and risk factor modification. CAD RADS 2: Consider non-atherosclerotic causes of chest pain. Consider preventive therapy and risk factor modification, particularly for patients with nonobstructive plaque in multiple segments. CAD RADS 3: Consider further functional testing. Consider symptom-guided anti-ischemic and preventive pharmacotherapy as well as risk factor modification per published guideline statements. CAD RADS 4A: Consider further functional testing or invasive coronary angiography with revascularization per published guideline statements. Consider symptom-guided anti-ischemic and preventive pharmacotherapy as well as risk factor modification per published guideline statements. CAD RADS 4B: Invasive coronary angiography recommended with revascularization per published guideline statements. Consider symptom-guided anti-ischemic and preventive pharmacotherapy as well as risk factor modification per published guideline statements. CAD RADS 5: Consider invasive angiography and/or viability assessment with revascularization per published guideline statements. Consider symptom-guided anti-ischemic and preventive pharmacotherapy as well as risk factor modification per published guideline statements. CRITICAL RESULT None COMMUNICATION Per this written report The coronary and cardiac findings of this CCTA were reviewed, reported, and signed by Mata Martinez MD (Thoracic Surgeon) Conclusion Electronically signed by : Lana Martinez MD 11/07/2023 12:10:20
[2023-11-01 12:07] VITALS: BMI 37.9
[2023-11-01 12:40] LABS: Chloride 100 mmol/L (98-107); Potassium 4.7 mmoL/L (3.5-5.1); Sodium 135 mmol/L (136-145)
[2023-11-01 12:43] LABS: Anion Gap 9.7 mEq/L (5-15); Blood Urea Nitrogen 22 mg/dl (9-20); Calcium 9.2 mg/dl (8.4-10.2); Carbon Dioxide 30 mmol/L (22.0-30.0); Creatinine Clearance Estimated 68 mL/min (50-200); Estimated Glomerular Filt Rate 43 ml/min (>60); GFR (African American) 52 ML/MIN (>60); Glucose 100 mg/dl (74-100)
[2023-11-01 13:05] VITALS: BP 159/88; PULSE 65; RESP 18; O2SAT 98
[2023-11-01] MEDS: NITROGLYCERIN 0.4MG SL TABLET SL (13:05)
[2023-11-01 13:10] VITALS: BP 164/86; PULSE 57; RESP 18; O2SAT 99
[2023-11-01 13:15] VITALS: BP 124/64; PULSE 62; RESP 18; O2SAT 97
[2023-11-01] MEDS: LACTATED RINGERS 1000ML 1,000 ML 999 ML IV (13:15)
[2023-11-01] MEDS: 0.9 % SODIUM CHLORIDE 50 ML VIAL IV (13:22)
[2023-11-01] MEDS: IOPAMIDOL-370 (76%);100ML BOTTLE 85 ML IV (13:22)
[2023-11-01] MEDS: SODIUM CHLORIDE 0.9% 10ML SYR (RAD ONLY) 10 ML IV (13:22)
[2023-11-01 13:25] VITALS: BP 128/66; PULSE 49; RESP 18; O2SAT 97
== END 2023-11-01 23:59 | disposition home or self-care (01) ==
PROVIDERS: PCP Nurse Practitioner Family; Visit Provider Physician Assistant
DX: R06.02 Shortness of breath (principal); I27.21 Secondary pulmonary arterial hypertension; I25.10 Atherosclerotic heart disease of native coronary artery without angina pectoris; I10 Essential (primary) hypertension; I51.89 Other ill-defined heart diseases; E78.2 Mixed hyperlipidemia; Z01.810 Encounter for preprocedural cardiovascular examination
CPT/HCPCS: 75571; 75574; 80048; Q9967

== ENCOUNTER 2023-11-27 08:00 | Day surgery (SDC) | payer MEDICARE, SELFPAY ==
[2023-11-27] VITALS (17 sets, daily range): BP systolic 110–170; BP diastolic 49–93; PULSE 52–72; RESP 15–18; O2SAT 93–97; BMI 37.9
--- NOTE | 2023-11-27 07:04 | IR_ITS ---
APPROVED REPORT Patient Location: Outpatient [facility] Tosser: DESHAWN Colón RT (R) PROCEDURES Left heart catheterization Left ventriculogram Selective coronary angiogram INDICATION Abnormal CCTA, Preoperative evaluation Informed consent was obtained prior to the procedure. COMPLICATIONS None Estimated Blood Loss: Less than10 mls TECHNIQUE One percent lidocaine was used to anesthetize the right groin. The right femoral artery was accessed via the Seldinger technique. A 4-Eritrean sheath was placed in the right femoral artery. The JL-4 and JR-4 catheter was also used to perform left heart catheterization left ventriculogram and selective coronary angiogram. At the end of the procedure the patient was transferred to the post-op holding area in stable condition for arterial sheath removal. ANGIOGRAPHIC RESULTS The left main artery Normal The left anterior descending artery Has a proximal eccentric 30% stenosis followed by mid vessel eccentric 30% stenosis while a small first diagonal artery has an ostial 50% stenosis and a larger medium sized second diagonal artery has an ostial 80% stenosis. The second diagonal artery is approximately 2 mm to 2.25 mm in diameter. The entire LAD system is accompanied by JANIE II flow The circumflex artery Gives rise to a ramus intermedius which has mid vessel 20% stenoses. Circumflex artery itself has 10% luminal irregularities The right coronary artery Is a dominant vessel and has proximal 30% and mid vessel 30 to 40% stenosis with distal 30% stenoses. The entire vessel is accompanied by JANIE II flow The BELCHER ventriculogram reveals Normal 65% The left ventricular end-diastolic pressure Severely elevated at 35 mmHg IMPRESSION Mild to moderate disease as described above with the severe stenosis and a medium sized second diagonal artery which is best managed medically JANIE II flow down the LAD and right coronary consistent with endothelial dysfunction as well as diastolic dysfunction Normal ejection fraction Severely elevated LVEDP consistent with HFpEF PLAN 1. Patient is a low and acceptable risk from a cardiac standpoint to proceed with elective shoulder surgery 2. Risk factor modification is advised 3. LDL less than 55 to achieve that high intensity statin 4. Recommend sleep study 5. Treatment of diastolic dysfunction with low-dose diuretics in order to decrease LVEDP 6. There is no way to percutaneous intervene upon the second diagonal artery without encroaching upon and occluding the first diagonal artery. This lesion is highly amenable to medical management Electronically signed by : Earnest Nelson MD 11/27/2023 10:41:44
[2023-11-27 08:44] LABS: Basophils # 0.1 K/mm3 (0-0.2); Eosinophils # 0.4 K/mm3 (0.0-0.4); Eosinophils % 6.4 % (0.1-12.0); Hematocrit 47.5 % (42.0-52.0); Hemoglobin 15.2 g/dL (14.1-18.0); Lymphocytes # 1.8 K/mm3 (0.7-4.5); Lymphocytes % 29.5 % (10-50); Mean Corpuscular Volume 93.7 fl (80-94); Monocytes % 15.8 % (1.7-9.3); Neutrophils % 47.2 % (37.0-80.0); Platelet Count 175 K/mm3 (142-424); Red Blood Count 5.07 M/mm3 (4.60-6.20); Red Cell Distribution Width 14.2 % (11.5-17.5); White Blood Count 6.3 K/mm3 (4.8-10.8)
[2023-11-27 08:45] LABS: Chloride 107 mmol/L (98-107); Potassium 4.3 mmoL/L (3.5-5.1); Sodium 140 mmol/L (136-145)
[2023-11-27 08:48] LABS: Anion Gap 11.3 mEq/L (5-15); Blood Urea Nitrogen 22 mg/dl (9-20); Carbon Dioxide 26 mmol/L (22.0-30.0); Creatinine Clearance Estimated 83 mL/min (50-200); Estimated Glomerular Filt Rate 55 ml/min (>60); GFR (African American) 67 ML/MIN (>60)
[2023-11-27 08:49] LABS: Calcium 9.5 mg/dl (8.4-10.2); Glucose 120 mg/dl (74-100)
[2023-11-27] MEDS: LIDOCAINE 1% 10ML MDV 20 ML IJ (09:58)
[2023-11-27] MEDS: 0.9 % SODIUM CHLORIDE 500 ML 25 ML IV (09:58)
[2023-11-27] MEDS: HEPARIN 1,000 UNITS/500ML NS (CATH LAB) 3000 UNIT IV (09:58)
[2023-11-27] MEDS: HEPARIN 1,000 UNITS/ML 10ML VIAL (CATH LAB) 10000 UNIT IV (09:59)
[2023-11-27] MEDS: diphenhydrAMINE 50MG/ML VIAL 50 MG IV (09:59)
[2023-11-27] MEDS: NITROGLYCERIN 800MCG/8ML SYR (CATH LAB) 800 MCG IA ×2 (09:59→10:27)
[2023-11-27] MEDS: MIDAZOLAM HCL 1MG/1ML 5ML VIAL 1 MG IV ×2 (10:22→10:31)
[2023-11-27] MEDS: FENTANYL 100MCG/2ML VIAL 50 MCG IV ×2 (10:23→10:32)
[2023-11-27] MEDS: IOPAMIDOL-370 (76%);100ML BOTTLE 50 ML IV (11:07)
== END 2023-11-27 14:12 | disposition home or self-care (01) ==
PROVIDERS: PCP Nurse Practitioner Family; Visit Provider Internal Medicine
DX: I25.118 Atherosclerotic heart disease of native coronary artery with other forms of angina pectoris (principal); Z79.899 Other long term (current) drug therapy; I10 Essential (primary) hypertension; E78.5 Hyperlipidemia, unspecified; I35.1 Nonrheumatic aortic (valve) insufficiency; I27.21 Secondary pulmonary arterial hypertension; G47.33 Obstructive sleep apnea (adult) (pediatric)
CPT/HCPCS: 80048; 85025; 93458; 99152; C1725; C1769; J1644; Q9967

== ENCOUNTER 2023-12-11 18:00 | Outpatient (CLI) | payer MEDICARE, SELFPAY ==
[2023-12-11 17:09] LABS: Alanine Aminotransferase 26 U/L (12-78); Albumin Level 4.9 g/dl (3.5-5.0); Albumin/Globulin Ratio 1.8 (1.1-1.8); Alkaline Phosphatase 60 U/L (38-126); Anion Gap 12.6 mEq/L (5-15); Aspartate Amino Transferase 31 U/L (17-59); Bilirubin,Total 0.6 mg/dl (0.2-1.3); Blood Urea Nitrogen 24 mg/dl (9-20); Carbon Dioxide 28 mmol/L (22.0-30.0); Chloride 105 mmol/L (98-107); Estimated Glomerular Filt Rate 55 ml/min (>60); GFR (African American) 67 ML/MIN (>60); Globulin 2.8 g/dL (1.3-3.2); Glucose 88 mg/dl (74-100); Potassium 5.6 mmoL/L (3.5-5.1); Sodium 140 mmol/L (136-145); Total Protein,Serum 7.7 g/dl (6.3-8.2)
== END 2023-12-11 23:59 | disposition home or self-care (01) ==
LOC: LAB.DROPOF 12-12 10:37
PROVIDERS: PCP Nurse Practitioner Family; Visit Provider Nurse Practitioner Family
DX: I10 Essential (primary) hypertension (principal); E78.2 Mixed hyperlipidemia
CPT/HCPCS: 80053

== ENCOUNTER 2023-12-26 14:48 | Outpatient (CLI) | payer MEDICARE, SELFPAY ==
[2023-12-26 15:45] LABS: Alanine Aminotransferase 23 U/L (12-78); Albumin Level 4.6 g/dl (3.5-5.0); Albumin/Globulin Ratio 1.7 (1.1-1.8); Alkaline Phosphatase 57 U/L (38-126); Anion Gap 16.8 mEq/L (5-15); Aspartate Amino Transferase 29 U/L (17-59); Bilirubin,Total 0.7 mg/dl (0.2-1.3); Blood Urea Nitrogen 24 mg/dl (9-20); Calcium 9.5 mg/dl (8.4-10.2); Carbon Dioxide 26 mmol/L (22.0-30.0); Chloride 103 mmol/L (98-107); Estimated Glomerular Filt Rate 60 ml/min (>60); GFR (African American) 73 ML/MIN (>60); Globulin 2.7 g/dL (1.3-3.2); Glucose 88 mg/dl (74-100); Potassium 4.8 mmoL/L (3.5-5.1); Sodium 141 mmol/L (136-145); Total Protein,Serum 7.3 g/dl (6.3-8.2)
== END 2023-12-26 23:59 | disposition home or self-care (01) ==
LOC: LAB.DROPOF 14:49
PROVIDERS: PCP Nurse Practitioner Family; Visit Provider Nurse Practitioner Family
DX: N28.9 Disorder of kidney and ureter, unspecified (principal); I10 Essential (primary) hypertension
CPT/HCPCS: 80053

== ENCOUNTER 2024-02-20 13:36 | Outpatient (CLI) | payer MEDICARE, SELFPAY ==
[2024-02-20 14:57] LABS: Alanine Aminotransferase 29 U/L (12-78); Albumin Level 4.9 g/dl (3.5-5.0); Albumin/Globulin Ratio 1.8 (1.1-1.8); Alkaline Phosphatase 59 U/L (38-126); Anion Gap 15.3 mEq/L (5-15); Aspartate Amino Transferase 43 U/L (17-59); Bilirubin,Total 0.8 mg/dl (0.2-1.3); Blood Urea Nitrogen 26 mg/dl (9-20); Calcium 9.5 mg/dl (8.4-10.2); Carbon Dioxide 24 mmol/L (22.0-30.0); Chloride 103 mmol/L (98-107); Chol/HDL Ratio 3.6 (1-3.5); Cholesterol 160 mg/dl (140-200); Estimated Glomerular Filt Rate 47 ml/min (>60); GFR (African American) 56 ML/MIN (>60); Globulin 2.8 g/dL (1.3-3.2); Glucose 115 mg/dl (74-100); HDL Cholesterol 45 mg/dl (40-60); Potassium 4.3 mmoL/L (3.5-5.1); Sodium 138 mmol/L (136-145); Total Protein,Serum 7.7 g/dl (6.3-8.2); Triglycerides 154 mg/dl (30-150); VLDL Cholesterol 31 mg/dL (0-40)
[2024-02-20 15:08] LABS: Direct LDL Cholesterol 68.87 mg/dL (100-129)
== END 2024-02-20 23:59 | disposition home or self-care (01) ==
LOC: LAB.DROPOF 13:36
PROVIDERS: PCP Nurse Practitioner Family; Visit Provider Nurse Practitioner Family
DX: N28.9 Disorder of kidney and ureter, unspecified (principal); E78.2 Mixed hyperlipidemia; E78.5 Hyperlipidemia, unspecified
CPT/HCPCS: 80053; 80061

== ENCOUNTER 2024-03-18 13:37 | Outpatient (CLI) | payer MEDICARE, SELFPAY | END 2024-03-18 23:59 | disposition home or self-care (01) | LOC: LAB.DROPOF 13:37 | PROVIDERS: PCP Nurse Practitioner Family; Visit Provider Nurse Practitioner Family | DX: R06.02 Shortness of breath (principal); T50.B95A Adverse effect of other viral vaccines, initial encounter; R07.89 Other chest pain; R05.8 Other specified cough | CPT/HCPCS: 87635 ==

== ENCOUNTER 2024-04-10 08:00 | Outpatient (RCR) | payer MEDICARE, SELFPAY | END 2024-04-10 08:05 | disposition home or self-care (01) | LOC: OT 08:00 | PROVIDERS: Visit Provider Physician Assistant | DX: M25.511 Pain in right shoulder (principal); Z98.890 Other specified postprocedural states | CPT/HCPCS: 97010; 97014; 97035; 97110; 97140; 97164; 97165; 97530; G0283 ==

== ENCOUNTER 2024-05-27 13:42 | Outpatient (CLI) | payer MEDICARE, SELFPAY ==
[2024-05-27 13:55] LABS: Alanine Aminotransferase 29 U/L (12-78); Albumin Level 4.5 g/dl (3.5-5.0); Albumin/Globulin Ratio 1.7 (1.1-1.8); Alkaline Phosphatase 51 U/L (38-126); Anion Gap 8.2 mEq/L (5-15); Aspartate Amino Transferase 32 U/L (17-59); Bilirubin,Total 0.7 mg/dl (0.2-1.3); Blood Urea Nitrogen 20 mg/dl (9-20); Calcium 9.2 mg/dl (8.4-10.2); Carbon Dioxide 25 mmol/L (22.0-30.0); Chloride 107 mmol/L (98-107); Estimated Glomerular Filt Rate 67 ml/min (>60); GFR (African American) 81 ML/MIN (>60); Globulin 2.7 g/dL (1.3-3.2); Glucose 142 mg/dl (74-100); Potassium 4.2 mmoL/L (3.5-5.1); Sodium 136 mmol/L (136-145); Total Protein,Serum 7.2 g/dl (6.3-8.2)
[2024-05-27 14:49] LABS: Hemoglobin A1C 6.4 % (4.0-6.0)
== END 2024-05-27 23:59 | disposition home or self-care (01) ==
LOC: LAB.DROPOF 13:43
PROVIDERS: PCP Nurse Practitioner Family; Visit Provider Nurse Practitioner Family
DX: R73.03 Prediabetes (principal); E78.2 Mixed hyperlipidemia; I10 Essential (primary) hypertension
CPT/HCPCS: 80053; 83036

== ENCOUNTER 2024-06-09 11:50 | Outpatient (CLI) | payer MEDICARE, SELFPAY ==
--- NOTE | 2024-06-09 11:56 | XR_ITS ---
PROCEDURE INFORMATION: Exam: XR Chest Exam date and time: 06/09/2024 12:13 PM Age: 68 years old Clinical indication: Dyspnea; Additional info: Delarosa TECHNIQUE: Imaging protocol: Radiologic exam of the chest. Views: 2 views. COMPARISON: CR XR CHEST 2V 02/22/2023 3:52 PM FINDINGS: Lungs: Unremarkable. No consolidation. Pleural spaces: Unremarkable. No pleural effusion. No pneumothorax. Heart/Mediastinum: Unremarkable. No cardiomegaly. Bones/joints: The patient appears to be status post right shoulder surgery. IMPRESSION: No acute findings.
[2024-06-09 14:56] LABS: Basophils % 0.6 % (0.1-2.0); Eosinophils # 0.2 K/mm3 (0.0-0.4); Eosinophils % 2.8 % (0.1-12.0); Hematocrit 45.2 % (42.0-52.0); Hemoglobin 15.1 g/dL (14.1-18.0); Lymphocytes # 2.1 K/mm3 (0.7-4.5); Lymphocytes % 30.2 % (10-50); Mean Corpuscular HGB Conc 33.4 g/dL (31.8-35.4); Mean Corpuscular Hemoglobin 30.5 pg (27.0-31.2); Mean Corpuscular Volume 91.4 fl (80-94); Mean Platelet Volume 8.9 fl (7.4-10.4); Monocytes # 1.1 K/mm3 (0.1-1.0); Monocytes % 15.3 % (1.7-9.3); Neutrophils # 3.5 K/mm3 (1.8-7.8); Neutrophils % 51.1 % (37.0-80.0); Platelet Count 184 K/mm3 (142-424); Red Blood Count 4.94 M/mm3 (4.60-6.20); Red Cell Distribution Width 15.1 % (11.5-17.5); White Blood Count 6.9 K/mm3 (4.8-10.8)
[2024-06-09 15:03] LABS: Albumin Level 4.4 g/dl (3.5-5.0); Chloride 104 mmol/L (98-107); Potassium 4.2 mmoL/L (3.5-5.1); Sodium 139 mmol/L (136-145)
[2024-06-09 15:05] LABS: Blood Urea Nitrogen 21 mg/dl (9-20); Estimated Glomerular Filt Rate 51 ml/min (>60); GFR (African American) 61 ML/MIN (>60)
[2024-06-09 15:06] LABS: Alanine Aminotransferase 29 U/L (12-78); Alkaline Phosphatase 55 U/L (38-126); Anion Gap 14.2 mEq/L (5-15); Aspartate Amino Transferase 31 U/L (17-59); Bilirubin,Direct 0.2 mg/dl (0.0-0.4); Bilirubin,Indirect 0.5 mg/dL (0.0-0.9); Bilirubin,Total 0.7 mg/dl (0.2-1.3); Bilirubin,Unconjugated 0.5 mg/dL (0.0-1.1); Carbon Dioxide 25 mmol/L (22.0-30.0); Cholesterol 137 mg/dl (140-200); Total Protein,Serum 7.4 g/dl (6.3-8.2); Triglycerides 238 mg/dl (30-150); VLDL Cholesterol 48 mg/dL (0-40)
[2024-06-09 15:07] LABS: Calcium 9.3 mg/dl (8.4-10.2); Chol/HDL Ratio 3.8 (1-3.5); Glucose 113 mg/dl (74-100); HDL Cholesterol 36 mg/dl (40-60)
[2024-06-09 15:16] LABS: NT Pro Brain Natriuretic Pep. 137 pg/mL (0-125)
[2024-06-09 15:18] LABS: Direct LDL Cholesterol 57.81 mg/dL (100-129)
== END 2024-06-09 23:59 | disposition home or self-care (01) ==
PROVIDERS: Internal Medicine; PCP Nurse Practitioner Family; Visit Provider Nurse Practitioner Family
DX: R06.09 Other forms of dyspnea (principal); R06.02 Shortness of breath; I50.30 Unspecified diastolic (congestive) heart failure; I25.10 Atherosclerotic heart disease of native coronary artery without angina pectoris; I10 Essential (primary) hypertension; E78.2 Mixed hyperlipidemia
CPT/HCPCS: 36415; 71046; 80048; 80061; 80076; 83880; 85025

== ENCOUNTER 2024-06-16 10:45 | Outpatient (CLI) | payer MEDICARE, SELFPAY ==
[2024-06-16 12:23] LABS: Coronavirus 19, PCR Not Detected (NotDetected); Influenza A, PCR Not Detected (NotDetected); Influenza B, PCR Not Detected (NotDetected)
== END 2024-06-16 23:59 | disposition home or self-care (01) ==
LOC: LAB.DROPOF 06-17 11:21
PROVIDERS: PCP Nurse Practitioner Family; Visit Provider Nurse Practitioner Family
DX: R50.9 Fever, unspecified (principal); R05.1 Acute cough; R09.89 Other specified symptoms and signs involving the circulatory and respiratory systems; R06.7 Sneezing; R51.9 Headache, unspecified; R53.83 Other fatigue
CPT/HCPCS: 87636

== ENCOUNTER 2024-06-25 08:05 | Outpatient (CLI) | payer MEDICARE, SELFPAY ==
--- NOTE | 2024-06-25 08:10 | CA_ITS ---
APPROVED REPORT EXAM: Comprehensive 2D, Doppler, and color-flow Echocardiogram Collection Systems Worker: Sue Garcia RVT Ht: 5 ft 6 in Wt: 233lbs BSA: 2.13 BP: 142/80 mmHg Indications: HFpEF,CAD,ALEXI,ABN EKG,CP,HTN,HLD,SOA 2D Dimensions IVSd 0.78 cm M: 0.6-1.2 LVEF (Visual) 68.20 % PWd 0.86 cm M: 0.6 - 1.2 LA Volume 53.00 mL LVDd 4.95 cm M: 4.2 - 5.9 LA Volume Index 24.77 mL/m2 (M/F) 16-34 LVDs 3.06 cm M: 2.5 - 4.0 M-Mode Dimensions LA Diam 4.72 cm (1.9-4.0) TAPSE 2.74 (<1.7) LV Diastology E Decel Time 150 (160-240 msec) E/A Ratio 1.1 Aortic Valve AI PHT 1366.00 ms AO Peak GR. 7.20 mmHg Mitral Valve MV E Max Junior. 91.0 (40-130 cm/s) MV A Velocity 85.0 (40-130 cm/s) E/A Ratio 1.07 MV PHT 44.0 ms Pulmonary Valve PV Peak Velocity 104.0 (50-150 cm/s) Tricuspid Valve TR P. Velocity 278.00 cm/s RAP Estimate 10.00 mmHg RVSP 40.90 mmHg Left Ventricle The left ventricle is normal size. The left ventricular systolic function is normal. The left ventricular ejection fraction is within the normal range. There is increased LV wall thickness. There is normal LV segmental wall motion. Transmitral Doppler flow pattern suggests impaired LV relaxation. LVEF is 55%. Right Ventricle Right ventricle is mildly dilated. Right ventricle is mildly hypokinetic. Atria Left atrium is mildly dilated. Right atrium is mildly dilated. There is no Doppler evidence of interatrial shunt. Aortic Valve The aortic valve is mildly thickened. There is no aortic valvular stenosis. Mild aortic regurgitation. Mitral Valve The mitral valve leaflets are mildly thickened. No evidence of mitral valve stenosis. Mild mitral regurgitation. Tricuspid Valve The tricuspid valve leaflets are thin and pliable. Trace tricuspid regurgitation. RVSP is 20-25 mmHg. Pulmonic Valve The pulmonary valve is normal in structure. Trace pulmonic regurgitation. Great Vessels The aortic root is normal in size. The ascending aorta is normal in size. IVC is normal in size and collapses >50% with inspiration. Pericardium There is no pericardial effusion. Other Information Study Quality: Fair Conclusion Normal LV systolic function. Mild RV dilation with mild reduction in RV function. Mild biatrial dilation. Mild AI, mild MR. Electronically signed by : Lana Martinez MD 06/26/2024 23:52:14
== END 2024-06-25 23:59 | disposition home or self-care (01) ==
LOC: RT 08:05
PROVIDERS: PCP Nurse Practitioner Family; Visit Provider Internal Medicine
DX: I51.7 Cardiomegaly (principal); I25.10 Atherosclerotic heart disease of native coronary artery without angina pectoris; I50.30 Unspecified diastolic (congestive) heart failure; E78.2 Mixed hyperlipidemia
CPT/HCPCS: 93306

== ENCOUNTER 2024-09-30 16:15 | Outpatient (CLI) | payer MEDICARE, SELFPAY ==
[2024-09-30 13:19] LABS: Coronavirus 19, PCR Not Detected (NotDetected); Human Rhinovirus Not Detected (NotDetected); Influenza B, PCR Not Detected (NotDetected); Respiratory Syncytial Virus Not Detected (NotDetected)
[2024-09-30 15:31] LABS: Influenza A, PCR Detected (NotDetected)
== END 2024-09-30 23:59 | disposition home or self-care (01) ==
LOC: LAB.DROPOF 16:15
PROVIDERS: PCP Nurse Practitioner Family; Visit Provider Nurse Practitioner Family
DX: R05.9 Cough, unspecified (principal); R50.9 Fever, unspecified; R68.89 Other general symptoms and signs
CPT/HCPCS: 87631

== ENCOUNTER 2024-12-08 12:37 | Outpatient (CLI) | payer MEDICARE, SELFPAY ==
--- OUTSIDE RECORDS SUMMARY | 2024-12-08 12:39 | XMS_ITS ---
Care Plan - [facility] Created on: December 08, 2024 Basil Leal : 1955 Sex: Male Author Organization [facility] Address [address] [place] [address] Phone Care Team Providers Care Diesel Engine Assembler Name Role Phone Rae Tovar Primary Care Provider [phone] [place] ADAMS, Nik Unavailable [phone]
--- OUTSIDE RECORDS SUMMARY | 2024-12-08 12:40 | XMS_ITS | Clinical Summary ---
Author Organization [facility] , [facility] Address [address] [place] [address] Phone Care Team Providers Care Paper Cleaner Name Role Phone Rae Tovar Primary Care Provider [phone] Nik Rose MD Unavailable [phone] Reason for Visit and Chief Complaint The Chief Complaint is: Right shoulder pain Problems Includes: Problems addressed during this encounter and other active Problems All Visits Onset Date Resolved Date Provider Condition S tatus Joint Pain, Localized in the Right Shoulder 10/10/2023 Edis palomares MD Active Last Documented On 1:48PM ; [facility] Plan of Treatment - Patient screened for future fall risk: documentation of any fall with injury in past year - Last Documented On 12/24/2023 8:20AM ; [facility] Fall Risk Assessment: This patient has been identified as a fall risk. Balance/gait along with postural blood pressure, vision and home fall hazards have been assessed. Medications have been reviewed, and recommendations made with regard to contributing factors for future falls. Plan of care: Consideration of vitamin D supplementation along with balance and strength training with consideration for formal physical therapy has been discussed with the patient. - Last Documented On 12/24/2023 8:20AM ; [facility] Patient understands the restrictions postoperatively. Operative details were explained to the patient. Sling use will be continued. Patient can have active motion of the elbow, forearm, wrist and hand. Physical therapy referral will be given if required. Patient will follow-up as scheduled. If there is any questions or concerns they can call our office. - Last Documented On 12/24/2023 8:20AM ; [facility] Assessments Includes: Assessments from this encounter Findings Rotator cuff repair - Last Documented On 12/24/2023 8:20AM ; [facility], [facility] Medical Equipment - Implanted Devices Includes: Current Devices No Medical Equipment Recorded Medications Includes: Medications discussed during this encounter and other current Medications Current Medications (continue as prescribed) hydroCHLOROthiazide 12.5 MG Oral Tablet 02/09/2024 P rovider: Diagnosis: Last Documented On 4 10:36AM By Galo Vázquez ; [facility], [facility] FLUoxetine HCl 20 MG Oral Capsule 02/03/2024 Provide r: LAQUITA TOVAR Diagnosis: Last Documented On 4 10:36AM By Galo Vázquez ; [facility], [facility] amLODIPine Besylate 5 MG Oral Tablet 12/24/2023 Prov ider: Diagnosis: Last Documented On 4 10:36AM By Galo Vázquez ; [facility], [facility] Aspirin Low Dose 81 MG Oral Tablet Chewable 12/19/2023 Provider: Diagnosis: Last Documented On 4 10:36AM By Galo Vázquez ; [facility], [facility] Spironolactone 25 MG Oral Tablet 12/17/2023 Provider : Diagnosis: Last Documented On 4 10:36AM By Galo Vázquez ; [facility], [facility] Doxycycline Hyclate 100 MG Oral Tablet 12/04/2023 Pr ovider: Edis Olguin MD Diagnosis: Last Documented On 4 10:36AM By Galo Vázquez ; [facility], [facility] Ondansetron HCl 4 MG Oral Tablet 11/29/2023 Provider : Edis Olguin MD Diagnosis: Last Documented On 4 10:37AM By Galo Vázquez ; [facility] traMADol HCl 50 MG Oral Tablet 11/21/2023 Provider: LAQUITA TOVAR Diagnosis: Last Documented On 4 10:37AM By Galo Vázquez ; [facility], [facility] Benazepril HCl 20 MG Oral Tablet 11/08/2023 Provider : Diagnosis: Last Documented On 4 1:47PM By Lauren Medina ; [facility], [facility] Bisoprolol Fumarate 5 MG Oral Tablet 11/08/2023 Prov ider: Diagnosis: Last Documented On 4 1:48PM By Lauren Medina ; [facility], [facility] Albuterol Sulfate HFA 108 (9 0 Base) MCG/ACT Inhalation Aerosol Solution 11/08/2023 Provider: Diagnosis: Last Documented On 4 1:47PM By Lauren Medina ; [facility], [facility] amLODIPine Besylate 5 MG Oral Tablet 09/26/2023 Prov ider: Diagnosis: Last Documented On 4 1:48PM By Adelina Viramontes ; [facility], [facility] Rosuvastatin Calcium 20 MG Oral Tablet 09/17/2023 Pr ovider: Diagnosis: Last Documented On 4 1:48PM By Adelina Viramontes ; [facility], [facility] Spironolactone 25 MG Oral Tablet 09/16/2023 Provider : Diagnosis: Last Documented On 4 1:48PM By Adelina Viramontes ; [facility], [facility] EQ Aspirin Low Dose 81 MG Oral Tablet Chewable 024 Provider: Diagnosis: Last Documented On 4 1:48PM By Adelina Viramontes ; [facility], [facility] Past Medications on file Ondansetron HCl 4 MG Oral Tablet 11/29/2023 - 12/09/2023 Provider: Edis hudson MD Diagnosis: 1 q 8 hours prn post op nausea Last Documented On 4 10:43AM By Edis Olguin ; [facility], [facility] oxyCODONE HCl 5 MG Oral Tablet 11/29/2023 - 12/04/2023 Provider: Edis hudson MD Diagnosis: 1-2 po q 4-6h prn post op pain Last Documented On 4 10:43AM By Edis Olguin ; [facility], [facility] traMADol HCl 50 MG Oral Tablet 11/06/2023 - 11/14/2023 Provider: Edis Olguin MD Diagnosis: Pain in right sh oulder [id number] prn pain Last Documented On 4 4:01PM By Edis Olguin ; [facility], [facility] traMADol HCl 50 MG Oral Tablet 10/25/2023 - 11/02/2023 Provider: Edis Olguin MD Diagnosis: Pain in right sh oulder [id number] prn pain Last Documented On 4 1:35PM By Edis Olguin ; [facility], [facility] traMADol HCl 50 MG Oral Tablet 10/18/2023 - 10/26/2023 Provider: Edis Olguin MD Diagnosis: Pain in right sh oulder [id number] prn pain Last Documented On 4 11:19AM By Edis Olguin ; [facility] traMADol HCl 50 MG Oral Tablet 10/10/2023 - 10/18/2023 Provider: Edis Olguin MD Diagnosis: Pain in right sh oulder [id number] prn pain Last Documented On 4 3:19PM By Edis Olguin ; [facility], [facility] Medications Administered Includes: Administered Medications from this encounter No Administered Medications Recorded Results Includes: Results discussed during this encounter No Results Recorded For Specified Dates History of Present Illness Includes: History of Present Illness from this encounter JESÚS Leal is a 68 year old male. - Allergy list reviewed - Problem list reviewed - Medication list reviewed - Patient pain level from 1-10: 9 Pain is better with heat - Yes, previous treatment. - - Review of medications documented Social History Description Last Updated No caffeine use 10/10/2023 Last Documented On 4 10:46AM ; [facility], [facility] No recent change in diet 10/10/2023 Last Documented On 4 10:46AM ; [facility], [facility] Not a current smoker. 10/10/2023 Last Documented On 4 10:46AM ; [facility], [facility] Not exercising regularly 10/10/2023 Last Documented On 4 10:46AM ; [facility], [facility] Not using alcohol 10/10/2023 Last Documented On 4 10:46AM ; [facility], [facility] Not using drugs 10/10/2023 Last Documented On 4 10:46AM ; [facility], [facility] Tobacco non-user 10/10/2023 Last Documented On 4 10:46AM ; [facility] Smoking Status Unknown Procedures and Surgical History Includes: Procedures from this encounter Procedures Code Diagnosis Performing Provider Service L ocation Service Date use of tobacco assessment performed 1000F Last Documented On 4 10:46AM ; [facility] review of medications documented 1160F Last Documented On 4 10:46AM ; [facility], [facility] Surgical History Last Updated History of History of Gallbladder 2023 Last Documented On 4 10:46AM ; [facility] History of total knee arthroplasty 10/10 Last Documented On 4 10:46AM ; [facility] Medical History Includes: Medical History addressed during this encounter Description Last Updated History of Sleep Apnea 10/10/2023 Last Documented On 4 10:46AM ; [facility] Use of CPAP 10/10/2023 Last Documented On 4 10:46AM ; [facility] Family History Includes: Family History addressed during this encounter Description Last Updated Family history of cancer 10/10/2023 Last Documented On 4 10:46AM ; [facility] Review of Systems Includes: Review of Systems from this encounter Systemic: Not feeling tired, no recent weight loss, and no recent weight gain. Head: No headache and no sinus pain. Eyes: No vision problems, no Cataracts, and no Glasses/Contacts. Glaucoma. Otolaryngeal: No hearing loss and no tinnitus. Cardiovascular: No chest pain or discomfort, no palpitations, no Hypertension, and no High Cholesterol. Pulmonary: No daytime asthma symptoms and no chronic cough. No wheezing. Gastrointestinal: No heartburn and no abdominal pain. No Indigestion, no Peptic Ulcer, no GI Stomach Bleed, no Ulcers, and no Acid Reflux. Endocrine: No hot flashes, no muscle weakness, no Diabetes, no Hypothyroid, and no Hyperthyroid. Hematologic: No easy bleeding, no tendency for easy bruising, and no Anemia. Musculoskeletal: No Arthritis and no lower back pain. No soft tissue swelling and no localized joint pain. Neurological: No dizziness, no convulsions, and no numbness. Psychological: No anxiety, no emotional lability, no depression, and no insomnia. Not crying for no reason. Skin: No dry skin. No Ulcers, no Scars, and no rash. Allergic and Immunologic: No complaint of seasonal allergic reaction. Mental Status Includes: Mental Status from this encounter Description No anxiety Functional Status Includes: Functional Status from this encounter No Functional Status Recorded Physical Exam Includes: Physical Exam from this encounter Allergies Includes: Active Allergies No Known Allergies Encounters Encounter Provider Location Date Check-In Time Check- Out Time Diagnosis Post Op Thaddeus So PA-C [facility] 4 10:40AM 10:58AM Insurance Includes: Active Insurance Policies Plan Name Member ID Group # Subscriber Relationship Effect chas Dates 1 - ([place]) Medicare [id number] Basil Leal Self Clinical Notes Includes: Clinical Notes from this encounter * Progress note Date Encounter Last Documented by 12/18/2023 Post Op Last documented on 12/24/2023; 8:20 AM, Thaddeus So PA-C; [facility], [facility] Active Problems & Conditions - Joint Pain, Localized in the Right Shoulder Chief Complaint The Chief Complaint is: Right shoulder pain. Referred Here Referred by. History of Present Illness Basil Leal is a 68 year old male. - Allergy list reviewed - Problem list reviewed - Medication list reviewed - Patient pain level from 1-10: 9 Pain is better with heat - Yes, previous treatment. - - Review of medications documented Current Medication - Albuterol Sulfate HFA 108 (90 Base) MCG/ACT Inhalation Aerosol Solution take as directed 0 days, 0 refills - amLODIPine Besylate 5 MG Oral Tablet 90 days, 0 refills - Benazepril HCl 20 MG Oral Tablet take as directed 0 days, 0 refills - Bisoprolol Fumarate 5 MG Oral Tablet take as directed 0 days, 0 refills - EQ Aspirin Low Dose 81 MG Oral Tablet Chewable 90 days, 0 refills - Rosuvastatin Calcium 20 MG Oral Tablet 90 days, 0 refills - Spironolactone 25 MG Oral Tablet 90 days, 0 refills Past Medical/Surgical History Reported: Use of CPAP. Diagnoses: Sleep Apnea Surgical: - History of Gallbladder - Total knee arthroplasty Social History Not a current smoker. Current diet: No recent change in diet. Caffeine use: No caffeine use. Tobacco use: Tobacco non-user. Alcohol: Not using alcohol. Drug Use: Not using drugs. Habits: Not exercising regularly. Allergies - No Known Allergies Family History Cancer Review Of Systems Systemic: Not feeling tired, no recent weight loss, and no recent weight gain. Head: No headache and no sinus pain. Eyes: No vision problems, no Cataracts, and no Glasses/Contacts. Glaucoma. Otolaryngeal: No hearing loss and no tinnitus. Cardiovascular: No chest pain or discomfort, no palpitations, no Hypertension, and no High Cholesterol. Pulmonary: No daytime asthma symptoms and no chronic cough. No wheezing. Gastrointestinal: No heartburn and no abdominal pain. No Indigestion, no Peptic Ulcer, no GI Stomach Bleed, no Ulcers, and no Acid Reflux. Endocrine: No hot flashes, no muscle weakness, no Diabetes, no Hypothyroid, and no Hyperthyroid. Hematologic: No easy bleeding, no tendency for easy bruising, and no Anemia. Musculoskeletal: No Arthritis and no lower back pain. No soft tissue swelling and no localized joint pain. Neurological: No dizziness, no convulsions, and no numbness. Psychological: No anxiety, no emotional lability, no depression, and no insomnia. Not crying for no reason. Skin: No dry skin. No Ulcers, no Scars, and no rash. Allergic and Immunologic: No complaint of seasonal allergic reaction. Physical Findings There is no edema in the extremity. Sutures are removed. No sign of active infection. Sensation light touch is intact. +2 radial pulse and brisk cap refill. No sign of wound dehiscence. Normal motion of the elbow forearm wrist and hand. Assessment Rotator cuff repair Counseling/Education - Tobacco non-user - Use of tobacco assessment performed Plan - Patient screened for future fall risk: documentation of any fall with injury in past year Fall Risk Assessment: This patient has been identified as a fall risk. Balance/gait along with postural blood pressure, vision and home fall hazards have been assessed. Medications have been reviewed, and recommendations made with regard to contributing factors for future falls. Plan of care: Consideration of vitamin D supplementation along with balance and strength training with consideration for formal physical therapy has been discussed with the patient. Patient understands the restrictions postoperatively. Operative details were explained to the patient. Sling use will be continued. Patient can have active motion of the elbow, forearm, wrist and hand. Physical therapy referral will be given if required. Patient will follow-up as scheduled. If there is any questions or concerns they can call our office. Notes This dictation was done with voice recognition software and may contain errors and omissions. Practice Management Use of tobacco assessment performed Review of medications documented.
--- OUTSIDE RECORDS SUMMARY | 2024-12-08 12:40 | XMS_ITS ---
Author Organization [facility] Address [address] [place] [address] Phone Care Team Providers Care Director Drug Safety Name Role Phone Rae Tovar Primary Care Provider [phone] Nik Rose MD Unavailable [phone] Problems Includes: Active, inactive, and resolved Problems All Visits Onset Date Resolved Date Provider Condition S tatus Joint Pain, Localized in the Right Shoulder 10/10/2023 Edis palomares MD Active Last Documented On 4 1:48PM ; [facility] Plan of Treatment Findings Encounter Date Patient screened for future fall risk: documentation of any fall with injury in past year Post Op with Edis Olguin MD 02/18/2024 Last Documented On 4 4:57PM ; [facility] Patient screened for future fall risk: documentation of any fall with injury in past year Post Op with Thaddeus So PA-C 12/18/2023 Last Documented On 4 8:20AM ; [facility] Instructions to patient Lose weight Last Documented On 4 1:49PM ; [facility] Assessments Includes: Assessments for all patient encounters Findings Encounter Date Overweight Physician Specified with Edis Olguin MD 10/10/2023 Last Documented On 4 9:02AM ; [facility] Instructions Includes: Instructions for all patient encounters Instructions to patient Lose weight Last Documented On 4 1:49PM ; [facility] Medical Equipment - Implanted Devices Includes: Current and historical Devices No Medical Equipment Recorded Medications Includes: Current and historical Medications Current Medications (continue as prescribed) hydroCHLOROthiazide 12.5 MG Oral Tablet 02/09/2024 P rovider: Diagnosis: Last Documented On 4 10:36AM By Galo Vázquez ; [facility] FLUoxetine HCl 20 MG Oral Capsule 02/03/2024 Provide r: LAQUITA TOVAR Diagnosis: Last Documented On 4 10:36AM By Galo Vázquez ; [facility] amLODIPine Besylate 5 MG Oral Tablet 12/24/2023 Prov ider: Diagnosis: Last Documented On 4 10:36AM By Galo Vázquez ; [facility] Aspirin Low Dose 81 MG Oral Tablet Chewable 12/19/2023 Provider: Diagnosis: Last Documented On 4 10:36AM By Galo Vázquez ; [facility] Spironolactone 25 MG Oral Tablet 12/17/2023 Provider : Diagnosis: Last Documented On 4 10:36AM By Galo Vázquez ; [facility] Doxycycline Hyclate 100 MG Oral Tablet 12/04/2023 Pr ovider: Edis Olguin MD Diagnosis: Last Documented On 4 10:36AM By Galo Vázquez ; [facility] Ondansetron HCl 4 MG Oral Tablet 11/29/2023 Provider : Edis Olguin MD Diagnosis: Last Documented On 4 10:37AM By Galo Vázquez ; [facility] traMADol HCl 50 MG Oral Tablet 11/21/2023 Provider: LAQUITA TOVAR Diagnosis: Last Documented On 4 10:37AM By Galo Vázquez ; [facility] Benazepril HCl 20 MG Oral Tablet 11/08/2023 Provider : Diagnosis: Last Documented On 4 1:47PM By Lauren Medina ; [facility] Bisoprolol Fumarate 5 MG Oral Tablet 11/08/2023 Prov ider: Diagnosis: Last Documented On 4 1:48PM By Lauren Medina ; [facility] Albuterol Sulfate HFA 108 (9 0 Base) MCG/ACT Inhalation Aerosol Solution 11/08/2023 Provider: Diagnosis: Last Documented On 4 1:47PM By Lauren Medina ; [facility] amLODIPine Besylate 5 MG Oral Tablet 09/26/2023 Prov ider: Diagnosis: Last Documented On 4 1:48PM By Adelina Viramontes ; [facility] Rosuvastatin Calcium 20 MG Oral Tablet 09/17/2023 Pr ovider: Diagnosis: Last Documented On 4 1:48PM By Adelina Viramontes ; [facility] Spironolactone 25 MG Oral Tablet 09/16/2023 Provider : Diagnosis: Last Documented On 4 1:48PM By Adelina Viramontes ; [facility] EQ Aspirin Low Dose 81 MG Oral Tablet Chewable 024 Provider: Diagnosis: Last Documented On 4 1:48PM By Adelina Viramontes ; [facility] Past Medications on file Ondansetron HCl 4 MG Oral Tablet 11/29/2023 - 12/09/2023 Provider: Edis hudson MD Diagnosis: 1 q 8 hours prn post op nausea Last Documented On 4 10:43AM By Edis Olguin ; [facility] oxyCODONE HCl 5 MG Oral Tablet 11/29/2023 - 12/04/2023 Provider: Edis hudson MD Diagnosis: 1-2 po q 4-6h prn post op pain Last Documented On 4 10:43AM By Edsi Olguin ; [facility] traMADol HCl 50 MG Oral Tablet 11/06/2023 - 11/14/2023 Provider: Edis Olguin MD Diagnosis: Pain in right sh oulder [id number] prn pain Last Documented On 4 4:01PM By Edis Olguin ; [facility] traMADol HCl 50 MG Oral Tablet 10/25/2023 - 11/02/2023 Provider: Edis Olguin MD Diagnosis: Pain in right sh oulder [id number] prn pain Last Documented On 4 1:35PM By Edis Olguin ; [facility] traMADol HCl 50 MG Oral Tablet 10/18/2023 - 10/26/2023 Provider: Edis Olguin MD Diagnosis: Pain in right sh oulder [id number] prn pain Last Documented On 4 11:19AM By Edis Olguin ; [facility] traMADol HCl 50 MG Oral Tablet 10/10/2023 - 10/18/2023 Provider: Edis Olguin MD Diagnosis: Pain in right sh oulder [id number] prn pain Last Documented On 4 3:19PM By Edis Olguin ; [facility] traMADol HCl 50 MG Oral Tablet 09/28/2023 - 11/08/2023 Provider: LAQUITA TOVAR Diagnosis: Last Documented On 4 1:46PM By Lauren Medina ; [facility] methylPREDNISolone 4 MG Oral Tablet Therapy Pack 08/30/2023 - 11/08/2023 Provider: Diagnosis: Last Documented On 4 1:46PM By Lauren Medina ; [facility] Medications Administered Includes: Administered Medications in patient's chart No Administered Medications Recorded Vital Signs Includes: Vital Signs from 12/09/2023 through 12/08/2024 Vital Name 05/28/2024 09:14A 02/18/2024 10: 37A Height (in) 66 66 Weight (lb) 230 230 Body Mass Index 37.1 37.1 Body Surface Area 2.1 2.1 Note: ab kld Last Documented: On 05/28/2024 9:14AM ; [facility] On 02/18/2024 10:37AM ; [facility] Results Includes: Results from 12/09/2023 through 12/08/2024 No Results Recorded For Specified Dates History of Present Illness History of Present Illness not supported for this document type No History of Present Illness Recorded Social History Description Last Updated No caffeine use 10/10/2023 Last Documented On 4 9:02AM ; [facility] No recent change in diet 10/10/2023 Last Documented On 4 9:02AM ; [facility] Not a current smoker. 10/10/2023 Last Documented On 4 9:02AM ; [facility] Not exercising regularly 10/10/2023 Last Documented On 4 9:02AM ; [facility] Not using alcohol 10/10/2023 Last Documented On 4 9:02AM ; [facility] Not using drugs 10/10/2023 Last Documented On 4 9:02AM ; [facility] Tobacco non-user 10/10/2023 Last Documented On 4 9:02AM ; [facility] Smoking Status Unknown Procedures and Surgical History Surgical History Last Updated History of History of Gallbladder 2023 Last Documented On 4 9:02AM ; [facility] History of total knee arthroplasty 10/10 Last Documented On 4 9:02AM ; [facility] Medical History Includes: Medical History in patient's chart Description Last Updated History of Sleep Apnea 10/10/2023 Last Documented On 4 9:02AM ; [facility] Use of CPAP 10/10/2023 Last Documented On 4 9:02AM ; [facility] Family History Includes: Family History in patient's chart Description Last Updated Family history of cancer 10/10/2023 Last Documented On 4 9:02AM ; [facility] Review of Systems Review of Systems not supported for this document type No Review of Systems Recorded Mental Status Description No anxiety Functional Status No Functional Status Recorded Physical Exam Physical Exam not supported for this document type No Physical Exam Recorded Allergies Includes: Active, inactive, and resolved Allergies No Known Allergies Encounters Includes: Encounters from 12/09/2023 through 12/08/2024 Encounter Provider Location Date Check-In Time Check- Out Time Diagnosis Follow Up Edis Olguin MD [facility] 4 9:05AM 9:30AM Post Op Edis Olguin MD [facility] 4 10:34AM 11:02AM Post Op Thaddeus So PA-C [facility] 4 10:40AM 10:58AM Insurance Includes: Active Insurance Policies Plan Name Member ID Group # Subscriber Relationship Effect chas Dates 1 - [employer] ([place] Medicare [id number] Basil Leal Self Clinical Notes Includes: Signed Clinical Notes starting from 07/27/2022 * Progress note Date Encounter Last Documented by 05/28/2024 Follow Up Last documented on 06/20/2024; 8:55 AM, Edis Olguin MD; [facility] Active Problems & Conditions - Joint Pain, [...] treatment. - - Review of medications documented Patient is here for return evaluation of his shoulder. He had an arthroscopic rotator cuff repair in November. He says he is doing very well. He says he is about 90-95% of his normal anticipated strength and function. Current Medication - Albuterol Sulfate HFA 108 (90 Base) MCG/ACT Inhalation Aerosol Solution take as directed 0 days, 0 refills - amLODIPine Besylate 5 MG Oral Tablet 90 days, 0 refills - amLODIPine Besylate 5 MG Oral Tablet 90 days, 0 refills - Aspirin Low Dose 81 MG Oral Tablet Chewable 90 days, 0 refills - Benazepril HCl 20 MG Oral Tablet take as directed 0 days, 0 refills - Bisoprolol Fumarate 5 MG Oral Tablet take as directed 0 days, 0 refills - Doxycycline Hyclate 100 MG Oral Tablet 7 days, 0 refills - EQ Aspirin Low Dose 81 MG Oral Tablet Chewable 90 days, 0 refills - FLUoxetine HCl 20 MG Oral Capsule 90 days, 0 refills - hydroCHLOROthiazide 12.5 MG Oral Tablet 90 days, 0 refills - Ondansetron HCl 4 MG Oral Tablet 10 days, 0 refills - Rosuvastatin Calcium 20 MG Oral Tablet 90 days, 0 refills - Spironolactone 25 MG Oral Tablet 90 days, 0 refills - Spironolactone 25 MG Oral Tablet 90 days, 0 refills - traMADol HCl 50 MG Oral Tablet 30 days, 0 refills Past Medical/Surgical History Reported: [...] complaint of seasonal allergic reaction. Physical Findings - Vitals taken 05/28/2024 09:14 am ab Height 66 in Weight 230 lbs Body Mass Index 37.1 kg/m2 Body Surface Area 2.1 m2 Alert and oriented x 3, Skin intact, No gross deformity, no atrophy of rotator cuff musculature, Sensation intact to light touch through upper extremity. Range of motion full. Fingers warm well perfused. Impingement testing negative. Rotator cuff strength testing within normal limits. Biceps testing negative. AC joint signs negative. Assessment Doing well after arthroscopic rotator cuff repair. He is approximately 5-1/2-6 months out Counseling/Education - Tobacco non-user - Use of tobacco assessment performed Plan Patient may return to activities as tolerated. We will see this patient back as needed. I told to continue a home exercise program specific to his shoulder for the next 6 weeks. At that point he can abandon this do activities as tolerated and use those activities as a way to return to more normal function. I will see him back as needed Notes This dictation was done with voice recognition software and may contain errors and omissions. Practice Management Use of tobacco assessment performed Review of medications documented. * Progress note Date Encounter Last Documented by 02/18/2024 Post Op Last documented on 02/29/2024; 4:57 PM, Edis Olguin MD; [facility] Active Problems & Conditions - Joint Pain, [...] treatment. - - Review of medications documented Patient is here for his right shoulder. He had a rotator cuff repair proximally 2-3 months ago. States he is doing very well. He has very occasional pain which he can take Tylenol and get to remit. He says he is able to sleep a little bit more restfully however he does have intermittent discomfort with sleep. He says his range of motion is starting to really come along of recent. Patient is here for his right shoulder. A rotator cuff repair about 2-3 months ago. He just has mild intermittent sleep discomfort and issue. Overall though he says he is making significant progress. Current Medication - Albuterol Sulfate HFA 108 (90 Base) MCG/ACT Inhalation Aerosol Solution Aerosol, solution take as directed 0 days, 0 refills - amLODIPine Besylate 5 MG Oral Tablet 90 days, 0 refills - amLODIPine Besylate 5 MG Oral Tablet 90 days, 0 refills - Aspirin Low Dose 81 MG Oral Tablet Chewable Tablet, chewable 90 days, 0 refills - Benazepril HCl 20 MG Oral Tablet take as directed 0 days, 0 refills - Bisoprolol Fumarate 5 MG Oral Tablet take as directed 0 days, 0 refills - Doxycycline Hyclate 100 MG Oral Tablet 7 days, 0 refills - EQ Aspirin Low Dose 81 MG Oral Tablet Chewable Tablet, chewable 90 days, 0 refills - FLUoxetine HCl 20 MG Oral Capsule Capsule, conventional 90 days, 0 refills - hydroCHLOROthiazide 12.5 MG Oral Tablet 90 days, 0 refills - Ondansetron HCl 4 MG Oral Tablet 10 days, 0 refills - Rosuvastatin Calcium 20 MG Oral Tablet 90 days, 0 refills - Spironolactone 25 MG Oral Tablet 90 days, 0 refills - Spironolactone 25 MG Oral Tablet 90 days, 0 refills - traMADol HCl 50 MG Oral Tablet 30 days, 0 refills Past Medical/Surgical History Reported: [...] complaint of seasonal allergic reaction. Physical Findings - Vitals taken 02/18/2024 10:37 am kld Height 66 in Weight 230 lbs Body Mass Index 37.1 kg/m2 Body Surface Area 2.1 m2 Alert and oriented x3 mood and affect are appropriate skin over shoulder is intact intact sensation to axillary LADC radial median ulnar nerve distributions. Palpable distal pulse fingers are warm and well perfused. Elevation is 140 external rotation is 40. Cuff strength was deferred secondary to his recent surgery. Assessment Status post rotator cuff repair proximally 2 months out from his surgery. He is doing well Counseling/Education - Tobacco non-user - Use of [...] has been discussed with the patient. Patient will transition from the phase 2 to phase 3 therapy protocol. We will see him back in a proximally 3 months for final check. Notes This dictation was done with voice recognition software and may contain errors and omissions. Practice Management Use of tobacco assessment performed Review of medications documented. * Progress note Date Encounter Last Documented by 12/18/2023 Post Op Last documented on 12/24/2023; 8:20 AM, Thaddeus So PA-C; [facility] Active Problems & Conditions - Joint Pain, [...]
--- OUTSIDE RECORDS SUMMARY | 2024-12-08 12:40 | XMS_ITS | Clinical Summary ---
Author Organization [facility] Address [address] [place] [address] Phone Care Team Providers Care Telegraphic Typewriter Repairer Name Role Phone Rae Tovar Primary Care Provider [phone] Nik Rose MD Unavailable [phone] Reason for Visit and Chief Complaint [Patient Encounter] Problems Includes: Problems addressed during this encounter and other active Problems All Visits Onset Date Resolved Date Provider Condition S tatus Joint Pain, Localized in the Right Shoulder 10/10/2023 Edis palomares MD Active Last Documented On 4 1:48PM ; [facility] Plan of Treatment No Plan of Treatment Recorded Assessments Includes: Assessments from this encounter No Assessments Recorded Medical Equipment - Implanted Devices Includes: Current Devices No Medical Equipment Recorded Medications Includes: Medications discussed during this encounter and other current Medications Current Medications (continue as prescribed) hydroCHLOROthiazide 12.5 MG Oral Tablet 02/09/2024 P rovider: Diagnosis: Last Documented On 4 10:36AM By Galo Vázquez ; [facility] FLUoxetine HCl 20 MG Oral Capsule 02/03/2024 Provide r: LAQUITA TOVAR Diagnosis: Last Documented On 4 10:36AM By Galo Vázquez ; [facility] amLODIPine Besylate 5 MG Oral Tablet 12/24/2023 Prov ider: Diagnosis: Last Documented On 4 10:36AM By Galo Vázquez ; [facility] Aspirin Low Dose 81 MG Oral Tablet Chewable 12/19/2023 Provider: Diagnosis: Last Documented On 4 10:36AM By Galo Vázquez ; [facility] Spironolactone 25 MG Oral Tablet 12/17/2023 Provider : Diagnosis: Last Documented On 4 10:36AM By Galo Vázquez ; [facility] Doxycycline Hyclate 100 MG Oral Tablet 12/04/2023 Pr ovider: Edis Olguin MD Diagnosis: Last Documented On 4 10:36AM By Galo Vázquez ; [facility] Ondansetron HCl 4 MG Oral Tablet 11/29/2023 Provider : Edis Olguin MD Diagnosis: Last Documented On 4 10:37AM By Galo Vázquez ; [facility] traMADol HCl 50 MG Oral Tablet 11/21/2023 Provider: LAQUITA TOVAR Diagnosis: Last Documented On 4 10:37AM By Galo Vázquez ; [facility] Benazepril HCl 20 MG Oral Tablet 11/08/2023 Provider : Diagnosis: Last Documented On 4 1:47PM By Lauren Medina ; [facility] Bisoprolol Fumarate 5 MG Oral Tablet 11/08/2023 Prov ider: Diagnosis: Last Documented On 4 1:48PM By Lauren Medina ; [facility] Albuterol Sulfate HFA 108 (9 0 Base) MCG/ACT Inhalation Aerosol Solution 11/08/2023 Provider: Diagnosis: Last Documented On 4 1:47PM By Lauren Medina ; [facility] amLODIPine Besylate 5 MG Oral Tablet 09/26/2023 Prov ider: Diagnosis: Last Documented On 4 1:48PM By Adelina Viramontes ; [facility] Rosuvastatin Calcium 20 MG Oral Tablet 09/17/2023 Pr ovider: Diagnosis: Last Documented On 4 1:48PM By Adelina Viramontes ; [facility] Spironolactone 25 MG Oral Tablet 09/16/2023 Provider : Diagnosis: Last Documented On 4 1:48PM By Adelina Viramontes ; [facility] EQ Aspirin Low Dose 81 MG Oral Tablet Chewable 024 Provider: Diagnosis: Last Documented On 1:48PM By Adelina Viramontes ; [facility] Medications Administered Includes: Administered Medications from this encounter No Administered Medications Recorded Vital Signs Includes: Vital Signs from this encounter Vital Name 11/14/2023 09:45A Blood Pressure Sitting (mmHg) 75/48 Pulse Rate-Sitting (bpm) 62 Height (in) 66 Weight (lb) 230 Body Mass Index 37.1 Body Surface Area 2.1 Oxygen Saturation (%) 98 Last Documented: On 11/14/2023 9:47AM ; [facility] Results Includes: Results discussed during this encounter No Results Recorded For Specified Dates History of Present Illness Includes: History of Present Illness from this encounter No History of Present Illness Recorded Social History No Social History Recorded - Smoking Status Unknown Medical History Includes: Medical History addressed during this encounter No Medical History Recorded Family History Includes: Family History addressed during this encounter No Family History Recorded Review of Systems Includes: Review of Systems from this encounter No Review of Systems Recorded Mental Status Includes: Mental Status from this encounter No Mental Status Recorded Functional Status Includes: Functional Status from this encounter No Functional Status Recorded Physical Exam Includes: Physical Exam from this encounter No Physical Exam Recorded Allergies Includes: Active Allergies No Known Allergies Encounters Encounter Provider Location Date Check-In Time Check-Out Time Diagnosis [Patient Encounter] Edis Olguin MD 12/04/2023 2:47PM 11:59PM Insurance Includes: Active Insurance Policies Plan Name Member ID Group # Subscriber Relationship Effect chas Dates 1 - [facility] Medicare [id number] Basil Leal Self Clinical Notes Includes: Clinical Notes from this encounter No Clinical Notes Recorded
--- OUTSIDE RECORDS SUMMARY | 2024-12-08 12:40 | XMS_ITS | Clinical Summary ---
Author Organization [facility] , [facility] Address [address] [place] [address] Phone Care Team Providers Care Paper Cone Machine Tender Name Role Phone Rae Tovar Primary Care Provider [phone] Nik Rose MD Unavailable [phone] Reason for Visit and Chief Complaint BRACE FITTING Problems Includes: Problems addressed during this encounter and other active Problems All Visits Onset Date Resolved Date Provider Condition S tatus Joint Pain, Localized in the Right Shoulder 10/10/2023 Edis palomares MD Active Last Documented On 4 1:48PM ; [facility] Plan of Treatment [...] On 4 10:36AM By Galo Vázquez ; [facility] FLUoxetine HCl 20 MG Oral Capsule 02/03/2024 Provide r: LAQUITA TOVAR Diagnosis: Last Documented On 4 10:36AM By Galo Vázquez ; [facility], [facility] amLODIPine Besylate 5 MG Oral Tablet 12/24/2023 Prov ider: Diagnosis: Last Documented On 4 10:36AM By Galo Vázquez ; [facility], [facility] Aspirin Low Dose 81 MG Oral Tablet Chewable 12/19/2023 Provider: Diagnosis: Last Documented On 4 10:36AM By [facility]o [facility] Spironolactone 25 MG Oral Tablet 12/17/2023 Provider : Diagnosis: Last Documented On 4 10:36AM By Galo Vázquez ; [facility] Doxycycline Hyclate 100 MG Oral Tablet 12/04/2023 Pr ovider: Edis Olguin MD Diagnosis: Last Documented On 4 10:36AM By Galo Vázquez ; [facility] Ondansetron HCl 4 MG Oral Tablet 11/29/2023 Provider : Edis Olguin MD Diagnosis: Last Documented On 4 10:37AM By Galo Vázquez ; [facility] traMADol HCl 50 MG Oral Tablet 11/21/2023 Provider: LAQUITA TOVAR Diagnosis: Last Documented On 4 10:37AM By Galo Vázquez ; [facility], [facility] Benazepril HCl 20 MG Oral Tablet 11/08/2023 Provider : Diagnosis: Last Documented On 4 1:47PM By Lauren Medina ; [facility] Bisoprolol Fumarate 5 MG Oral Tablet 11/08/2023 Prov ider: Diagnosis: Last Documented On 4 1:48PM By Lauren Medina ; [facility], [facility] Albuterol Sulfate HFA 108 (9 0 Base) MCG/ACT Inhalation Aerosol Solution 11/08/2023 Provider: Diagnosis: Last Documented On 4 1:47PM By Lauren Medina ; [facility], [facility] amLODIPine Besylate 5 MG Oral Tablet 09/26/2023 Prov ider: Diagnosis: Last Documented On 4 1:48PM By Adelina Viramontes ; [facility] Rosuvastatin Calcium 20 MG Oral Tablet 09/17/2023 Pr ovider: Diagnosis: Last Documented On 4 1:48PM By Adelina Viramontes ; [facility] Spironolactone 25 MG Oral Tablet 09/16/2023 Provider : Diagnosis: Last Documented On 4 1:48PM By Adelina Viramontes ; [facility] EQ Aspirin Low Dose 81 MG Oral Tablet Chewable 024 Provider: Diagnosis: Last Documented On 4 1:48PM By Adelina [facility] Medications Administered Includes: [...] Allergies Includes: Active Allergies No Known Allergies Insurance Includes: Active Insurance Policies Plan Name Member ID Group # Subscriber Relationship Effect chas Dates 1 - BCBS ([place]) Medicare [id number] Basil Leal Self Clinical Notes Includes: Clinical Notes from this encounter No Clinical Notes Recorded
--- OUTSIDE RECORDS SUMMARY | 2024-12-08 12:40 | XMS_ITS | Clinical Summary ---
Author Organization [facility] , [facility] Address [address] [place] [address] Phone Care Team Providers Care Rework Machine Operator Name Role Phone Rae Tovar Primary Care Provider [phone] Nik Rose MD Unavailable [phone] Reason for Visit and Chief Complaint The Chief Complaint is: right shoulder pain Problems Includes: Problems addressed during this encounter and other active Problems All Visits Onset Date Resolved Date Provider Condition S tatus Joint Pain, Localized in the Right Shoulder 10/10/2023 Edis palomares MD Active Last Documented On 4 1:48PM ; [facility] Plan of Treatment Patient may return to activities as tolerated. We will see this patient back as needed. I told to continue a home exercise program specific to his shoulder for the next 6 weeks. At that point he can abandon this do activities as tolerated and use those activities as a way to return to more normal function. I will see him back as needed - Last Documented On 06/20/2024 8:55AM ; [facility] Assessments Includes: Assessments from this encounter Findings Doing well after arthroscopic rotator cuff repair. He is approximately 5-1/2-6 months out - Last Documented On 06/20/2024 8:55AM ; [facility] Medical Equipment - Implanted Devices Includes: Current Devices No Medical Equipment Recorded Medications Includes: Medications discussed during this encounter and other current Medications Current Medications (continue as prescribed) hydroCHLOROthiazide 12.5 MG Oral Tablet 02/09/2024 P valerioder: Diagnosis: Last Documented On 4 10:36AM By Galo Vázquez ; [facility] FLUoxetine HCl 20 MG Oral Capsule 02/03/2024 Provide r: LAQUITA TOVAR Diagnosis: Last Documented On 4 10:36AM By Galo Vázquez ; [facility] amLODIPine Besylate 5 MG Oral Tablet 12/24/2023 Prov ider: Diagnosis: Last Documented On 4 10:36AM By Galo Vázquez ; [facility] Aspirin Low Dose 81 MG Oral Tablet Chewable 12/19/2023 Provider: Diagnosis: Last Documented On 4 10:36AM By Galo Vázquez ; [facility] Spironolactone 25 MG Oral Tablet 12/17/2023 Provider : Diagnosis: Last Documented On 4 10:36AM By Galo Vázquez ; [facility] Doxycycline Hyclate 100 MG Oral Tablet 12/04/2023 Pr ovider: Edis Olguin MD Diagnosis: Last Documented On 4 10:36AM By Galo Vázquez ; [facility] Ondansetron HCl 4 MG Oral Tablet 11/29/2023 Provider : Edis Olguin MD Diagnosis: Last Documented On 4 10:37AM By Galo Vázquez ; [facility] traMADol HCl 50 MG Oral Tablet 11/21/2023 Provider: LAQUITA TOVAR Diagnosis: Last Documented On 4 10:37AM By Galo Vázquez ; [facility] Benazepril HCl 20 MG Oral Tablet 11/08/2023 Provider : Diagnosis: Last Documented On 4 1:47PM By Lauren Medina ; [facility] Bisoprolol Fumarate 5 MG Oral Tablet 11/08/2023 Prov ider: Diagnosis: Last Documented On 4 1:48PM By Lauren Medina ; [facility] Albuterol Sulfate HFA 108 (9 0 Base) MCG/ACT Inhalation Aerosol Solution 11/08/2023 Provider: Diagnosis: Last Documented On 4 1:47PM By Lauren Medina ; [facility] amLODIPine Besylate 5 MG Oral Tablet 09/26/2023 Prov ider: Diagnosis: Last Documented On 4 1:48PM By Adelina Viramontes ; [facility], [facility] Rosuvastatin Calcium 20 MG Oral Tablet 09/17/2023 Pr ovider: Diagnosis: Last Documented On 4 1:48PM By Adelina Viramontes ; [facility], [facility] Spironolactone 25 MG Oral Tablet 09/16/2023 Provider : Diagnosis: Last Documented On 4 1:48PM By Adelina Viramontes ; [facility], [facility] EQ Aspirin Low Dose 81 MG Oral Tablet Chewable 024 Provider: Diagnosis: Last Documented On 4 1:48PM By Adelina Viramontes ; [facility], [facility] Past Medications on file Ondansetron HCl 4 MG Oral Tablet 11/29/2023 - 12/09/2023 Provider: Edis hudson MD Diagnosis: 1 q 8 hours prn post op nausea Last Documented On 4 10:43AM By Edis Olguin ; [facility], [facility] oxyCODONE HCl 5 MG Oral Tablet 11/29/2023 - 12/04/2023 Provider: Edis hudson MD Diagnosis: 1-2 po q 4-6h prn post op pain Last Documented On 4 10:43AM By Edis Olguin ; [facility], [facility] traMADol HCl 50 MG Oral Tablet 11/06/2023 - 11/14/2023 Provider: Edis Olguin MD Diagnosis: Pain in right sh oulder [id number] prn pain Last Documented On 4 4:01PM By Edis Olguin ; [facility], [facility] traMADol HCl 50 MG Oral Tablet 10/25/2023 - 11/02/2023 Provider: Edis Olguin MD Diagnosis: Pain in right sh oulder 6ipf2-1g prn pain Last Documented On 4 1:35PM By Edis Olguin ; [facility], [facility] traMADol HCl 50 MG Oral Tablet 10/18/2023 - 10/26/2023 Provider: Edis Olguin MD Diagnosis: Pain in right sh oulder [id number] prn pain Last Documented On 4 11:19AM By Edis Olguin ; [facility], [facility] traMADol HCl 50 MG Oral Tablet 10/10/2023 - 10/18/2023 Provider: Edis Olguin MD Diagnosis: Pain in right sh oulder 3wey9-8p prn pain Last Documented On 4 3:19PM By Edis Olguin ; [facility] Medications Administered Includes: Administered Medications from this encounter No Administered Medications Recorded Vital Signs Includes: Vital Signs from this encounter Vital Name 05/28/2024 09:14A Height (in) 66 Weight (lb) 230 Body Mass Index 37.1 Body Surface Area 2.1 Note: ab Last Documented: On 05/28/2024 9:14AM ; [facility] Results Includes: Results discussed during this [...] of his normal anticipated strength and function. Social History Description Last Updated No caffeine use 10/10/2023 Last Documented On 4 9:14AM ; [facility], [facility] No recent change in diet 10/10/2023 Last Documented On 4 9:14AM ; [facility], [facility] Not a current smoker. 10/10/2023 Last Documented On 4 9:14AM ; [facility], [facility] Not exercising regularly 10/10/2023 Last Documented On 4 9:14AM ; [facility], [facility] Not using alcohol 10/10/2023 Last Documented On 4 9:14AM ; [facility], [facility] Not using drugs 10/10/2023 Last Documented On 4 9:14AM ; [facility] Tobacco non-user 10/10/2023 Last Documented On 4 9:14AM ; [facility], [facility] Smoking Status Unknown Procedures and Surgical History Includes: Procedures from this encounter Procedures Code Diagnosis Performing Provider Service L ocation Service Date use of tobacco assessment performed 1000F Last Documented On 4 9:14AM ; [facility] review of medications documented 1160F Last Documented On 4 9:14AM ; [facility] Surgical History Last Updated History of History of Gallbladder 2023 Last Documented On 4 9:13AM ; [facility] History of total knee arthroplasty 10/10 Last Documented On 4 9:13AM ; [facility], [facility] Medical History Includes: Medical History addressed during this encounter Description Last Updated History of Sleep Apnea 10/10/2023 Last Documented On 4 9:13AM ; [facility] Use of CPAP 10/10/2023 Last Documented On 4 9:13AM ; [facility] Family History Includes: Family History addressed during this encounter Description Last Updated Family history of cancer 10/10/2023 Last Documented On 4 9:13AM ; [facility] Review of Systems Includes: Review of Systems [...] Time Diagnosis Follow Up Edis Olguin MD [facility] 4 9:05AM 9:30AM Insurance Includes: Active Insurance Policies Plan Name Member ID Group # Subscriber Relationship Effect chas Dates 1 - BCBS ([place]) Medicare [id number] Basil Leal Self Clinical Notes Includes: Clinical Notes from this encounter * Progress note Date Encounter Last Documented by 05/28/2024 Follow Up Last documented on 06/20/2024; 8:55 AM, Edis Olguin MD; [facility], [facility] Active Problems & Conditions - Joint [...]
--- OUTSIDE RECORDS SUMMARY | 2024-12-08 12:40 | XMS_ITS | Clinical Summary ---
Author Organization [facility] , [facility] Address [address] [place] [address] Phone Care Team Providers Care Precinct Police Captain Name Role Phone Rae Tovar Primary Care Provider [phone] Nik Rose MD Unavailable [phone] Reason for Visit and Chief Complaint The Chief Complaint is: right shoulder pain Problems Includes: Problems addressed during this encounter and other active Problems All Visits Onset Date Resolved Date Provider Condition S tatus Joint Pain, Localized in the Right Shoulder 10/10/2023 Edis palomares MD Active Last Documented On 1:48PM ; [facility] Plan of Treatment - Patient screened for future fall risk: documentation of any fall with injury in past year - Last Documented On 02/29/2024 4:57PM ; [facility] Fall Risk Assessment: This patient has been [...] with the patient. - Last Documented On 02/29/2024 4:57PM ; [facility] Patient will transition from the phase 2 to phase 3 therapy protocol. We will see him back in a proximally 3 months for final check. - Last Documented On 02/29/2024 4:57PM ; [facility] Assessments Includes: Assessments from this encounter Findings Status post rotator cuff repair proximally 2 months out from his surgery. He is doing well - Last Documented On 02/29/2024 4:57PM ; [facility], [facility] Medical Equipment - Implanted Devices Includes: Current Devices No Medical Equipment Recorded Medications Includes: Medications discussed during this encounter and other current Medications Current Medications (continue as prescribed) hydroCHLOROthiazide 12.5 MG Oral Tablet 02/09/2024 P valerioder: Diagnosis: Last Documented On 4 10:36AM By Galo Vázquez ; [facility] FLUoxetine HCl 20 MG Oral Capsule 02/03/2024 Provide r: LAQUITA TOVAR Diagnosis: Last Documented On 4 10:36AM By Galo Vázquez ; [facility] amLODIPine Besylate 5 MG Oral Tablet 12/24/2023 Prov ider: Diagnosis: Last Documented On 4 10:36AM By Galo Vázquez ; [facility] Aspirin Low Dose 81 MG Oral Tablet Chewable 12/19/2023 Provider: Diagnosis: Last Documented On 4 10:36AM By Galo Vázquez ; [facility] Spironolactone 25 MG Oral Tablet 12/17/2023 Provider : Diagnosis: Last Documented On 4 10:36AM By Galo Vázquez ; [facility] Doxycycline Hyclate 100 MG Oral Tablet 12/04/2023 Pr ovider: Edis Olguin MD Diagnosis: Last Documented On 4 10:36AM By Galo Vázquez ; [facility] Ondansetron HCl 4 MG Oral Tablet 11/29/2023 Provider : Edis Olguin MD Diagnosis: Last Documented On 4 10:37AM By Galo Vázquez ; [facility] traMADol HCl 50 MG Oral Tablet 11/21/2023 Provider: LAQUITA TOVAR Diagnosis: Last Documented On 4 10:37AM By Galo Vázquez ; [facility] Benazepril HCl 20 MG Oral Tablet 11/08/2023 Provider : Diagnosis: Last Documented On 4 1:47PM By Lauren Medina ; [facility] Bisoprolol Fumarate 5 MG Oral Tablet 11/08/2023 Prov ider: Diagnosis: Last Documented On 4 1:48PM By Lauren Medina ; [facility], [facility] Albuterol Sulfate HFA 108 (9 0 Base) MCG/ACT Inhalation Aerosol Solution 11/08/2023 Provider: Diagnosis: Last Documented On 4 1:47PM By Lauren Medina ; [facility], [facility] amLODIPine Besylate 5 MG Oral Tablet 09/26/2023 Prov ider: Diagnosis: Last Documented On 4 1:48PM By Adelina Viramontes ; [facility], [facility] Rosuvastatin Calcium 20 MG Oral Tablet 09/17/2023 Pr ovider: Diagnosis: Last Documented On 4 1:48PM By Adelina Viramontes ; [facility], [facility] Spironolactone 25 MG Oral Tablet 09/16/2023 Provider : Diagnosis: Last Documented On 4 1:48PM By Adelina Viramontes ; [facility], [facility] EQ Aspirin Low Dose 81 MG Oral Tablet Chewable 024 Provider: Diagnosis: Last Documented On 4 1:48PM By Adelina Viramontes ; [facility], [facility] Past Medications on file Ondansetron HCl 4 MG Oral Tablet 11/29/2023 - 12/09/2023 Provider: Edis hudson MD Diagnosis: 1 q 8 hours prn post op nausea Last Documented On 4 10:43AM By Edis Olguin ; [facility], [facility] oxyCODONE HCl 5 MG Oral Tablet 11/29/2023 - 12/04/2023 Provider: Edis hudosn MD Diagnosis: 1-2 po q 4-6h prn post op pain Last Documented On 4 10:43AM By Edis Olguin ; [facility], [facility] traMADol HCl 50 MG Oral Tablet 11/06/2023 - 11/14/2023 Provider: Edis Olguin MD Diagnosis: Pain in right sh oulder 0srh1-1g prn pain Last Documented On 4 4:01PM By Edis Olguin ; [facility], [facility] traMADol HCl 50 MG Oral Tablet 10/25/2023 - 11/02/2023 Provider: Edis Olguin MD Diagnosis: Pain in right sh oulder [id number] prn pain Last Documented On 4 1:35PM By Edis Olguin ; [facility] traMADol HCl 50 MG Oral Tablet 10/18/2023 - 10/26/2023 Provider: Edis Olguin MD Diagnosis: Pain in right sh oulder [id number] prn pain Last Documented On 4 11:19AM By Edis Olguin ; [facility] traMADol HCl 50 MG Oral Tablet 10/10/2023 - 10/18/2023 Provider: Edis Olguin MD Diagnosis: Pain in right sh oulder 8elo2-4y prn pain Last Documented On 4 3:19PM By Edis Olguin ; [facility] Medications Administered Includes: Administered Medications from this encounter No Administered Medications Recorded Vital Signs Includes: Vital Signs from this encounter Vital Name 02/18/2024 10:37A Height (in) 66 Weight (lb) 230 Body Mass Index 37.1 Body Surface Area 2.1 Note: kld Last Documented: On 02/18/2024 10:37A M ; [facility] Results Includes: Results discussed during this encounter [...] he says he is making significant progress. Social History Description Last Updated No caffeine use 10/10/2023 Last Documented On 4 10:37AM ; [facility], [facility] No recent change in diet 10/10/2023 Last Documented On 4 10:37AM ; [facility], [facility] Not a current smoker. 10/10/2023 Last Documented On 4 10:37AM ; [facility], [facility] Not exercising regularly 10/10/2023 Last Documented On 4 10:37AM ; [facility], [facility] Not using alcohol 10/10/2023 Last Documented On 4 10:37AM ; [facility], [facility] Not using drugs 10/10/2023 Last Documented On 4 10:37AM ; [facility], [facility] Tobacco non-user 10/10/2023 Last Documented On 4 10:37AM ; [facility], [facility] Smoking Status Unknown Procedures and Surgical History Includes: Procedures from this encounter Procedures Code Diagnosis Performing Provider Service L ocation Service Date use of tobacco assessment performed 1000F Last Documented On 4 10:37AM ; [facility], [facility] review of medications documented 1160F Last Documented On 4 10:37AM ; [facility], [facility] Surgical History Last Updated History of History of Gallbladder 2023 Last Documented On 4 10:37AM ; [facility] History of total knee arthroplasty 10/10 Last Documented On 4 10:37AM ; [facility], [facility] Medical History Includes: Medical History addressed during this encounter Description Last Updated History of Sleep Apnea 10/10/2023 Last Documented On 4 10:37AM ; [facility], [facility] Use of CPAP 10/10/2023 Last Documented On 4 10:37AM ; [facility], [facility] Family History Includes: Family History addressed during this encounter Description Last Updated Family history of cancer 10/10/2023 Last Documented On 4 10:37AM ; [facility], [facility] Review of Systems Includes: Review of Systems [...] Time Check- Out Time Diagnosis Post Op Edis Olguin MD [facility] 4 10:34AM 11:02AM Insurance Includes: Active Insurance Policies Plan Name Member ID Group # Subscriber Relationship Effect chas Dates - ([place]) Medicare [id number] Basil Leal Self Clinical Notes Includes: Clinical Notes from this encounter * Progress note Date Encounter Last Documented by 02/18/2024 Post Op Last documented on 02/29/2024; 4:57 PM, Edis Olguin MD; [facility], [facility] Active Problems & Conditions - [...]
[2024-12-08 13:35] VITALS: PULSE 54; PULSE 58
[2024-12-08] MEDS: ALBUTEROL 0.083% 2.5 MG/3 ML NEB IH (13:35)
--- NOTE | 2024-12-08 15:00 | CT_ITS ---
FINAL REPORT TECHNIQUE: Axial images were obtained through the chest without contrast. Sagittal and coronal reconstructions were performed. This study was performed with techniques to keep radiation doses as low as reasonably achievable (ALARA). Individualized dose reduction techniques using automated exposure control or adjustment of mA and/or kV according to the patient's size were employed. CLINICAL HISTORY: Lung nodule follow-up. COUGH COMPARISON: 11/30/2020 CTA chest FINDINGS: CT CHEST: Moderately advanced coronary artery calcifications are present. There are calcified right paratracheal nodes. Scarring is present in the posterior right and left upper lobes. There is a nodular density noted in the posterior right upper lobe, seen on image #108 of series 3, with an adjacent calcified granuloma. The soft tissue noncalcified component measures up to 10 mm in size, slightly larger than seen on the previous exam. There is no pericardial or pleural effusion. Views of the upper abdomen reveal evidence of a prior cholecystectomy, as well as fatty infiltration of the liver. IMPRESSION: There is a nodular density in the posterior right upper lobe as described above, which measures up to 10 mm in size, slightly larger than seen on the prior exam. Recommend a 3-month follow-up CT for further evaluation. Reviewed, Interpreted and Dictated by Mark Collado MD Transcribed by Tomeka Bonner Authenticated and [facility]
== END 2024-12-08 23:59 | disposition home or self-care (01) ==
LOC: RT 12:38
PROVIDERS: PCP Nurse Practitioner Family; Visit Provider Internal Medicine Pulmonary Disease
DX: R91.8 Other nonspecific abnormal finding of lung field (principal); R06.09 Other forms of dyspnea
CPT/HCPCS: 71250; 94060; 94618; 94640; 94726; 94729; J7613

== ENCOUNTER 2025-05-18 12:43 | Outpatient (CLI) | payer MEDICARE, SELFPAY ==
--- OUTSIDE RECORDS SUMMARY | 2025-05-18 12:46 | XMS_ITS ---
Care Plan - [facility], [facility] Created on: May 18, 2025 Basil Leal : 1955 Sex: Male Author Organization [facility] , [facility] Address [address] [place] [address] Phone Care Team Providers Care Electronics Assembler And Tester Name Role Phone Rae Tovar Primary Care Provider [phone] [place] ADAMS, Nik Unavailable [phone]
--- OUTSIDE RECORDS SUMMARY | 2025-05-18 12:46 | XMS_ITS | Clinical Summary ---
Author Organization [facility] , [facility] Address [address] [place] [address] Phone Care Team Providers Care Pin Drafting Machine Tender Name Role Phone Rae Tovar Primary Care Provider [phone] Nik Rose MD Unavailable [phone] Reason for Visit and Chief Complaint The Chief Complaint is: Right shoulder pain Problems Includes: Problems addressed during this encounter and other active Problems All Visits Onset Date Resolved Date Provider Condition S tatus Joint Pain Shoulder Right 10/10/2023 Edis Olguin MD Active Last Documented On 4 1:48PM ; [facility], [facility] Plan of Treatment - Patient screened for future fall risk: documentation of any fall with injury in past year - Last Documented On 12/24/2023 8:20AM ; [facility], [facility] Fall Risk Assessment: This patient has [...] - Last Documented On 12/24/2023 8:20AM ; [facility], [facility] Patient understands the restrictions postoperatively. Operative details were explained to the patient. Sling use will be continued. Patient can have active motion of the elbow, forearm, wrist and hand. Physical therapy referral will be given if required. Patient will follow-up as scheduled. If there is any questions or concerns they can call our office. - Last Documented On 12/24/2023 8:20AM ; [facility], [facility] Assessments Includes: Assessments from this encounter Findings Rotator cuff repair - Last Documented On 12/24/2023 8:20AM ; [facility], [facility] Medical Equipment - Implanted Devices Includes: Current Devices No Medical Equipment Recorded Medications Includes: Medications discussed during this encounter and other current Medications Current Medications (continue as prescribed) hydroCHLOROthiazide 12.5 MG Oral Tablet 02/09/2024 P rovider: Diagnosis: Last Documented On 4 10:36AM By Galo Vázquez ; [facility], [facility] FLUoxetine HCl 20 MG Oral Capsule 02/03/2024 Provide r: LAQUITA TOVAR Diagnosis: Last Documented On 4 10:36AM By Galo Vázquez ; [facility], [facility] amLODIPine Besylate 5 MG Oral Tablet 12/24/2023 Prov ider: Diagnosis: Last Documented On 4 10:36AM By Galo Vázquez ; [facility], [facility] Aspirin Low Dose 81 MG Oral Tablet Chewable 12/19/2023 Provider: Diagnosis: Last Documented On 4 10:36AM By Galo Vázquez ; [facility], [facility] Spironolactone 25 MG Oral Tablet 12/17/2023 Provider : Diagnosis: Last Documented On 4 10:36AM By Galo Vázquez ; [facility], [facility] Doxycycline Hyclate 100 MG Oral Tablet 12/04/2023 Pr ovider: Edis Olguin MD Diagnosis: Last Documented On 4 10:36AM By Galo Vázquez ; [facility], [facility] Ondansetron HCl 4 MG Oral Tablet 11/29/2023 Provider : Edis Olguin MD Diagnosis: Last Documented On 4 10:37AM By Galo Vázquez ; [facility] traMADol HCl 50 MG Oral Tablet 11/21/2023 Provider: LAQUITA TOVAR Diagnosis: Last Documented On 4 10:37AM By Galo Vázquez ; [facility], [facility] Benazepril HCl 20 MG Oral Tablet 11/08/2023 Provider : Diagnosis: Last Documented On 4 1:47PM By Lauren Medina ; [facility], [facility] Bisoprolol Fumarate 5 MG Oral Tablet 11/08/2023 Prov ider: Diagnosis: Last Documented On 4 1:48PM By Lauren Medina ; [facility], [facility] Albuterol Sulfate HFA 108 (9 0 Base) MCG/ACT Inhalation Aerosol Solution 11/08/2023 Provider: Diagnosis: Last Documented On 4 1:47PM By Lauren Medina ; [facility], [facility] amLODIPine Besylate 5 MG Oral Tablet 09/26/2023 Prov ider: Diagnosis: Last Documented On 4 1:48PM By Aedlina Viramontes ; [facility], [facility] Rosuvastatin Calcium 20 MG Oral Tablet 09/17/2023 Pr ovider: Diagnosis: Last Documented On 4 1:48PM By Adelina Viramontes ; [facility], [facility] Spironolactone 25 MG Oral Tablet 09/16/2023 Provider : Diagnosis: Last Documented On 4 1:48PM By Adelina Viramontes ; [facility], [facility] EQ Aspirin Low Dose 81 MG Oral Tablet Chewable 024 Provider: Diagnosis: Last Documented On 4 1:48PM By Adelina Viramontes ; [facility], [facility] Past Medications on file Ondansetron HCl 4 MG Oral Tablet 11/29/2023 - 12/09/2023 Provider: Edis hudson MD Diagnosis: 1 q 8 hours prn post op nausea Last Documented On 4 10:43AM By Edis Olguin ; [facility], [facility] oxyCODONE HCl 5 MG Oral Tablet 11/29/2023 - 12/04/2023 Provider: Edis hudson MD Diagnosis: 1-2 po q 4-6h prn post op pain Last Documented On 4 10:43AM By Edis Olguin ; [facility], [facility] traMADol HCl 50 MG Oral Tablet 11/06/2023 - 11/14/2023 Provider: Edis Olguin MD Diagnosis: Pain in right sh oulder [id number] prn pain Last Documented On 4 4:01PM By Edis Olguin ; [facility], [facility] traMADol HCl 50 MG Oral Tablet 10/25/2023 - 11/02/2023 Provider: Edis Olguin MD Diagnosis: Pain in right sh oulder [id number] prn pain Last Documented On 4 1:35PM By Edis Olguin ; [facility], [facility] traMADol HCl 50 MG Oral Tablet 10/18/2023 - 10/26/2023 Provider: Edis Olguin MD Diagnosis: Pain in right sh oulder [id number] prn pain Last Documented On 4 11:19AM By Edis Olguin ; [facility], [facility] traMADol HCl 50 MG Oral Tablet 10/10/2023 - 10/18/2023 Provider: Edis Olguin MD Diagnosis: Pain in right sh oulder [id number] prn pain Last Documented On 4 3:19PM By Edis Olguin ; [facility], [facility] Medications Administered Includes: Administered Medications from [...] 10/10/2023 Last Documented On 4 10:46AM ; [facility], [facility] No recent change in diet 10/10/2023 Last Documented On 4 10:46AM ; [facility], [facility] Not a current smoker. 10/10/2023 Last Documented On 4 10:46AM ; [facility], [facility] Not exercising regularly 10/10/2023 Last Documented On 4 10:46AM ; [facility], [facility] Not using alcohol 10/10/2023 Last Documented On 4 10:46AM ; [facility], [facility] Not using drugs 10/10/2023 Last Documented On 4 10:46AM ; [facility], [facility] Tobacco non-user 10/10/2023 Last Documented On 4 10:46AM ; [facility], [facility] Smoking Status Unknown Procedures and Surgical History Includes: Procedures from this encounter Procedures Code Diagnosis Performing Provider Service L ocation Service Date use of tobacco assessment performed 1000F Last Documented On 4 10:46AM ; [facility] review of medications documented 1160F Last Documented On 4 10:46AM ; [facility] Surgical History Last Updated History of History of Gallbladder 2023 Last Documented On 4 10:46AM ; [facility] History of total knee arthroplasty 10/10 Last Documented On 4 10:46AM ; [facility] Medical History Includes: Medical History addressed during this encounter Description Last Updated History of Sleep Apnea 10/10/2023 Last Documented On 4 10:46AM ; [facility] Use of CPAP 10/10/2023 Last Documented On 4 10:46AM ; [facility] Family History Includes: Family History addressed during this encounter Description Last Updated Family history of cancer 10/10/2023 Last Documented On 4 10:46AM ; [facility] Review of Systems Includes: Review of [...] Time Diagnosis Post Op Thaddeus So PA-C [facility] 4 10:40AM 10:58AM Insurance Includes: Active Insurance Policies Plan Name Member ID Group # Subscriber Relationship Effect chas Dates 1 - [place] ([place]) Medicare [id number] Basil Leal Self Clinical Notes Includes: Clinical Notes from this encounter * Progress note Date Encounter Last Documented by 12/18/2023 Post Op Last documented on 12/24/2023; 8:20 AM, Thaddeus So PA-C; [facility], [facility] Active Problems & Conditions - Joint [...]
--- OUTSIDE RECORDS SUMMARY | 2025-05-18 12:46 | XMS_ITS | Clinical Summary ---
Author Organization Healthcare Address [address] [id number] Care Team Providers Care Arcade Games Mechanic Name Role Phone Vikki Law APRN Primary Care Provider [phone] Immunizations Immunization Administration Dates Next Due Pneumococcal Conjugate PCV 13 11/19/2014 Family History Medical History Relation Name Comments Emphysema Father Cardiac disorder Mother Cataracts Mother Diabetes Mother Other cancer Mother Diabetes Other Relation Name Status Comments Father Mother Other Social History Tobacco Use Types Packs/Day Years Used Date Smoking Tobacco: Never Alcohol Use Standard Drinks/Week Comments No 0 (1 standard drink = 0.6 oz pur e alcohol) Sex and Gender Information Value Date Recorded Sex Assigned at Not on file Legal Sex Male 6:54 PM EDT Gender Identity Not on file Sexual Orientation Not on file Last Filed Vital Signs Vital Sign Reading Time Taken Comments Blood Pressure 149/83 02/04/2019 10:15 AM EDT Pulse 56 02/04/2019 10:15 AM EDT Temperature 36.7 C (98 F) 02/04/2019 10:15 AM EDT Respiratory Rate 20 02/04/2019 10:15 AM EDT Oxygen Saturation - - Inhaled Oxygen Concentration - - Weight 101 kg (223 lb 4.2 oz) 02/04/2019 10:15 A M EDT Height 165.1 cm (5' 5 ) 02/04/2019 10:15 AM EDT Body Mass Index 37.15 02/04/2019 10:15 AM EDT Plan of Treatment Not on file Care Teams Arcade Games Mechanic Relationship Specialty Start Date End Date Vikki Law APRN [address] [place] [address] PCP - General 12/24/20
--- OUTSIDE RECORDS SUMMARY | 2025-05-18 12:46 | XMS_ITS | Clinical Summary ---
Author Organization [facility] , [facility] Address [address] [place] [address] Phone Care Team Providers Care Earth Science Teacher Name Role Phone Rae Tovar Primary Care Provider [phone] Nik Rose MD Unavailable [phone] Reason for Visit and Chief Complaint [Patient Encounter] Problems Includes: Problems addressed during this encounter and other active Problems All Visits Onset Date Resolved Date Provider Condition S tatus Joint Pain Shoulder Right 10/10/2023 Edis Olguin MD Active Last Documented On 4 1:48PM ; [facility], [facility] Plan of Treatment No Plan of Treatment [...] 4 10:36AM By Galo Vázquez ; [facility], [facility] FLUoxetine HCl 20 MG Oral Capsule 02/03/2024 Provide r: LAQUITA TOVAR Diagnosis: Last Documented On 4 10:36AM By Galo Vázquez ; [facility], [facility] amLODIPine Besylate 5 MG Oral Tablet 12/24/2023 Prov ider: Diagnosis: Last Documented On 4 10:36AM By Galo Vázquez ; [facility], [facility] Aspirin Low Dose 81 MG Oral Tablet Chewable 12/19/2023 Provider: Diagnosis: Last Documented On 4 10:36AM By Galo Vázquez ; [facility] Spironolactone 25 MG Oral Tablet 12/17/2023 Provider : Diagnosis: Last Documented On 4 10:36AM By Galo Vázquez ; [facility] Doxycycline Hyclate 100 MG Oral Tablet 12/04/2023 Pr ovider: Edis Olguin MD Diagnosis: Last Documented On 4 10:36AM By Galo Vázquez ; [facility] Ondansetron HCl 4 MG Oral Tablet 11/29/2023 Provider : Edis Olguin MD Diagnosis: Last Documented On 4 10:37AM By Galo Vázquez ; [facility] traMADol HCl 50 MG Oral Tablet 11/21/2023 Provider: LAQUITA TOVAR Diagnosis: Last Documented On 4 10:37AM By Galo Vázquez ; [facility] Benazepril HCl 20 MG Oral Tablet 11/08/2023 Provider : Diagnosis: Last Documented On 4 1:47PM By Lauren Medina ; [facility] Bisoprolol Fumarate 5 MG Oral Tablet 11/08/2023 Prov ider: Diagnosis: Last Documented On 4 1:48PM By Lauren Medina ; [facility] Albuterol Sulfate HFA 108 (9 0 Base) MCG/ACT Inhalation Aerosol Solution 11/08/2023 Provider: Diagnosis: Last Documented On 4 1:47PM By Lauren Medina ; [facility], [facility] amLODIPine Besylate 5 MG Oral Tablet 09/26/2023 Prov ider: Diagnosis: Last Documented On 4 1:48PM By Adelina Viramontes ; [facility] Rosuvastatin Calcium 20 MG Oral Tablet 09/17/2023 Pr ovider: Diagnosis: Last Documented On 4 1:48PM By Adelina Viramontes ; [facility] Spironolactone 25 MG Oral Tablet 09/16/2023 Provider : Diagnosis: Last Documented On 4 1:48PM By Adelina Viramontes ; [facility], [facility] EQ Aspirin Low Dose 81 MG Oral Tablet Chewable 024 Provider: Diagnosis: Last Documented On 1:48PM By Adelina Viramontes ; [facility], [facility] Medications Administered Includes: Administered Medications from this encounter No Administered Medications Recorded Vital Signs Includes: Vital Signs from this encounter Vital Name 11/14/2023 09:45A Blood Pressure Sitting (mmHg) 75/48 Pulse Rate-Sitting (bpm) 62 Height (in) 66 Weight (lb) 230 Body Mass Index 37.1 Body Surface Area 2.1 Oxygen Saturation (%) 98 Last Documented: On 11/14/2023 9:47AM ; [facility], [facility] Results Includes: Results discussed during this [...] Relationship Effect chas Dates 1 - [employer] ([place]) Medicare [id number] Basil Leal Self Clinical Notes Includes: Clinical Notes from this encounter No Clinical Notes Recorded
--- OUTSIDE RECORDS SUMMARY | 2025-05-18 12:46 | XMS_ITS | Clinical Summary ---
Author Organization [facility] , [facility] Address [address] [place] [address] Phone Care Team Providers Care Art Consultant Name Role Phone Rae Tovar Primary Care Provider [phone] Nik Rose MD Unavailable [phone] Reason for Visit and Chief Complaint BRACE FITTING Problems Includes: Problems addressed during this encounter and other active Problems All Visits Onset Date Resolved Date Provider Condition S tatus Joint Pain Shoulder Right 10/10/2023 Edis Olguin MD Active Last Documented On 4 1:48PM ; [facility], [facility] Plan of Treatment No Plan of [...] On 4 10:36AM By Galo Vázquez ; [facility], [facility] FLUoxetine HCl 20 MG Oral Capsule 02/03/2024 Provide r: LAQUITA TOVAR Diagnosis: Last Documented On 4 10:36AM By Galo Vázquez ; [facility], [facility] amLODIPine Besylate 5 MG Oral Tablet 12/24/2023 Prov ider: Diagnosis: Last Documented On 4 10:36AM By Galo Vázquez ; [facility], [facility] Aspirin Low Dose 81 MG Oral Tablet Chewable 12/19/2023 Provider: Diagnosis: Last Documented On 4 10:36AM By Galo Vázquez ; [facility] Spironolactone 25 MG Oral Tablet 12/17/2023 Provider : Diagnosis: Last Documented On 4 10:36AM By Galo Vázquez ; [facility] Doxycycline Hyclate 100 MG Oral Tablet 12/04/2023 Pr ovider: Edis Olguin MD Diagnosis: Last Documented On 4 10:36AM By Galo Vázquez ; [facility] Ondansetron HCl 4 MG Oral Tablet 11/29/2023 Provider : Edis Olguin MD Diagnosis: Last Documented On 4 10:37AM By Galo Vázquez ; [facility] traMADol HCl 50 MG Oral Tablet 11/21/2023 Provider: LAQUITA TOVAR Diagnosis: Last Documented On 4 10:37AM By Galo Vázquez ; [facility] Benazepril HCl 20 MG Oral Tablet 11/08/2023 Provider : Diagnosis: Last Documented On 4 1:47PM By Lauren Medina ; [facility] Bisoprolol Fumarate 5 MG Oral Tablet 11/08/2023 Prov ider: Diagnosis: Last Documented On 4 1:48PM By Lauren Medina ; [facility] Albuterol Sulfate HFA 108 (9 0 Base) MCG/ACT Inhalation Aerosol Solution 11/08/2023 Provider: Diagnosis: Last Documented On 4 1:47PM By Lauren Medina ; [facility], [facility] amLODIPine Besylate 5 MG Oral Tablet 09/26/2023 Prov ider: Diagnosis: Last Documented On 4 1:48PM By Adelina Viramontes ; [facility] Rosuvastatin Calcium 20 MG Oral Tablet 09/17/2023 Pr ovider: Diagnosis: Last Documented On 4 1:48PM By Adelina Viarmontes ; [facility] Spironolactone 25 MG Oral Tablet 09/16/2023 Provider : Diagnosis: Last Documented On 4 1:48PM By Adelina Viramontes ; [facility], [facility] EQ Aspirin Low Dose 81 MG Oral Tablet Chewable 024 Provider: Diagnosis: Last Documented On 4 1:48PM By Adelina [facility] Medications Administered Includes: Administered Medications [...] Relationship Effect chas Dates 1 - [place] ([place]) Medicare [id number] Basil Vilchis Clinical Notes Includes: Clinical Notes from this encounter No Clinical Notes Recorded
--- NOTE | 2025-05-18 12:47 | XR_ITS ---
FINAL REPORT CLINICAL HISTORY: RUE dysesthesia. NO INJURY OR TRAUMA COMPARISON: None FINDINGS: 5 views of the cervical spine were obtained. There is no acute fracture or acute malalignment. There is multilevel degenerative disc disease, most pronounced at C5-6 and C6-7. The precervical soft tissues are normal. IMPRESSION: Degenerative disc disease without acute abnormality. Reviewed, Interpreted and Dictated by Lilibeth Treadwell MD Transcribed by Nery Correa Authenticated and [facility]
--- OUTSIDE RECORDS SUMMARY | 2025-05-18 12:47 | XMS_ITS ---
Author Organization [facility] , [facility] Address [address] [place] [address] Phone Care Team Providers Care Upper Cutter Out Name Role Phone Rae Tovar Primary Care Provider [phone] Nik Rose MD Unavailable [phone] Problems Includes: Active, inactive, and resolved Problems All Visits Onset Date Resolved Date Provider Condition S tatus Joint Pain Shoulder Right 10/10/2023 Eids Olguin MD Active Last Documented On 4 1:48PM ; [facility], [facility] Plan of Treatment Findings Encounter Date Patient screened for future fall risk: documentation of any fall with injury in past year Post Op with Edis Olguin MD 02/18/2024 Last Documented On 4 4:57PM ; [facility], [facility] Patient screened for future fall risk: documentation of any fall with injury in past year Post Op with Thaddeus So PA-C 12/18/2023 Last Documented On 4 8:20AM ; [facility], [facility] Instructions to patient Lose weight Last Documented On 4 1:49PM ; [facility], [facility] Assessments Includes: Assessments for all patient encounters Findings Encounter Date Overweight Physician Specified with Edis Olguin MD 10/10/2023 Last Documented On 4 9:02AM ; [facility], [facility] Instructions Includes: Instructions for all patient encounters Instructions to patient Lose weight Last Documented On 4 1:49PM ; [facility], [facility] Medical Equipment - Implanted Devices Includes: Current and historical Devices No Medical Equipment Recorded Medications Includes: Current and historical Medications Current Medications (continue as prescribed) hydroCHLOROthiazide 12.5 MG Oral Tablet 02/09/2024 P rovider: Diagnosis: Last Documented On 4 10:36AM By Galo Vázquez ; [facility] FLUoxetine HCl 20 MG Oral Capsule 02/03/2024 Provide r: LAQUITA TOVAR Diagnosis: Last Documented On 4 10:36AM By Galo Vázquez ; [facility] amLODIPine Besylate 5 MG Oral Tablet 12/24/2023 Prov ider: Diagnosis: Last Documented On 4 10:36AM By Galo Vázquez ; [facility] Aspirin Low Dose 81 MG Oral Tablet Chewable 12/19/2023 Provider: Diagnosis: Last Documented On 4 10:36AM By Galo Vázquez ; [facility] Spironolactone 25 MG Oral Tablet 12/17/2023 Provider : Diagnosis: Last Documented On 4 10:36AM By Galo Vázquez ; [facility] Doxycycline Hyclate 100 MG Oral Tablet 12/04/2023 Pr ovider: Edis Olguin MD Diagnosis: Last Documented On 4 10:36AM By Galo Vázquez ; [facility] Ondansetron HCl 4 MG Oral Tablet 11/29/2023 Provider : Edis Olguin MD Diagnosis: Last Documented On 4 10:37AM By Galo Vázquez ; [facility] traMADol HCl 50 MG Oral Tablet 11/21/2023 Provider: LAQUITA TOVAR Diagnosis: Last Documented On 4 10:37AM By Galo Vázquez ; [facility] Benazepril HCl 20 MG Oral Tablet 11/08/2023 Provider : Diagnosis: Last Documented On 4 1:47PM By Lauren Medina ; [facility] Bisoprolol Fumarate 5 MG Oral Tablet 11/08/2023 Prov ider: Diagnosis: Last Documented On 4 1:48PM By Lauren Medina ; [facility] Albuterol Sulfate HFA 108 (9 0 Base) MCG/ACT Inhalation Aerosol Solution 11/08/2023 Provider: Diagnosis: Last Documented On 4 1:47PM By Lauren Medina ; [facility], [facility] amLODIPine Besylate 5 MG Oral Tablet 09/26/2023 Prov ider: Diagnosis: Last Documented On 4 1:48PM By Adelina Viramontes ; [facility], [facility] Rosuvastatin Calcium 20 MG Oral Tablet 09/17/2023 Pr ovider: Diagnosis: Last Documented On 4 1:48PM By Adelina Viramontes ; [facility], [facility] Spironolactone 25 MG Oral Tablet 09/16/2023 Provider : Diagnosis: Last Documented On 4 1:48PM By Adelina Viramontes ; [facility], [facility] EQ Aspirin Low Dose 81 MG Oral Tablet Chewable 024 Provider: Diagnosis: Last Documented On 4 1:48PM By Adelina Viramontes ; [facility], [facility] Past Medications on file Ondansetron HCl 4 MG Oral Tablet 11/29/2023 - 12/09/2023 Provider: Edis hudson MD Diagnosis: 1 q 8 hours prn post op nausea Last Documented On 4 10:43AM By Edis Olguin ; [facility], [facility] oxyCODONE HCl 5 MG Oral Tablet 11/29/2023 - 12/04/2023 Provider: Edis hudson MD Diagnosis: 1-2 po q 4-6h prn post op pain Last Documented On 4 10:43AM By Edis Olguin ; [facility], [facility] traMADol HCl 50 MG Oral Tablet 11/06/2023 - 11/14/2023 Provider: Edis Olguin MD Diagnosis: Pain in right sh oulder [id number] prn pain Last Documented On 4 4:01PM By Edis Olguin ; [facility], [facility] traMADol HCl 50 MG Oral Tablet 10/25/2023 - 11/02/2023 Provider: Edis Olguin MD Diagnosis: Pain in right sh oulder [id number] prn pain Last Documented On 4 1:35PM By Edis Olguin ; [facility] traMADol HCl 50 MG Oral Tablet 10/18/2023 - 10/26/2023 Provider: Edis Olguin MD Diagnosis: Pain in right sh oulder [id number] prn pain Last Documented On 4 11:19AM By Edis Olguin ; [facility] traMADol HCl 50 MG Oral Tablet 10/10/2023 - 10/18/2023 Provider: Edis Olguin MD Diagnosis: Pain in right sh oulder [id number] prn pain Last Documented On 4 3:19PM By Edis Olguin ; [facility] traMADol HCl 50 MG Oral Tablet 09/28/2023 - 11/08/2023 Provider: LAQUITA TOVAR Diagnosis: Last Documented On 4 1:46PM By Lauren Medina ; [facility], [facility] methylPREDNISolone 4 MG Oral Tablet Therapy Pack 08/30/2023 - 11/08/2023 Provider: Diagnosis: Last Documented On 4 1:46PM By Lauren Medina ; [facility] Medications Administered Includes: Administered Medications in patient's chart No Administered Medications Recorded Vital Signs Includes: Vital Signs from 05/18/2024 through 05/18/2025 Vital Name 05/28/2024 09:14A Height (in) 66 Weight (lb) 230 Body Mass Index 37.1 Body Surface Area 2.1 Note: ab Last Documented: On 05/28/2024 9:14AM ; [facility] Results Includes: Results from 05/18/2024 through 05/18/2025 No Results Recorded For Specified Dates History of Present Illness History of Present Illness not supported for this document type No History of Present Illness Recorded Social History Description Last Updated No caffeine use 10/10/2023 Last Documented On 4 9:02AM ; [facility] No recent change in diet 10/10/2023 Last Documented On 4 9:02AM ; [facility] Not a current smoker. 10/10/2023 Last Documented On 4 9:02AM ; [facility] Not exercising regularly 10/10/2023 Last Documented On 4 9:02AM ; [facility] Not using alcohol 10/10/2023 Last Documented On 4 9:02AM ; [facility] Not using drugs 10/10/2023 Last Documented On 4 9:02AM ; [facility] Tobacco non-user 10/10/2023 Last Documented On 4 9:02AM ; [facility] Smoking Status Unknown Procedures and Surgical History Surgical History Last Updated History of History of Gallbladder 2023 Last Documented On 4 9:02AM ; [facility] History of total knee arthroplasty 10/10 Last Documented On 4 9:02AM ; [facility] Medical History Includes: Medical History in patient's chart Description Last Updated History of Sleep Apnea 10/10/2023 Last Documented On 4 9:02AM ; [facility] Use of CPAP 10/10/2023 Last Documented On 4 9:02AM ; [facility] Family History Includes: Family History in patient's chart Description Last Updated Family history of cancer 10/10/2023 Last Documented On 4 9:02AM ; [facility] Review of Systems Review of Systems not supported for this document type No Review of Systems Recorded Mental Status Description No anxiety Functional Status No Functional Status Recorded Physical Exam Physical Exam not supported for this document type No Physical Exam Recorded Allergies Includes: Active, inactive, and resolved Allergies No Known Allergies Encounters Includes: Encounters from 05/18/2024 through 05/18/2025 Encounter Provider Location Date Check-In Time Check- Out Time Diagnosis Follow Up Edis Olguin MD [facility] 4 9:05AM 9:30AM Insurance Includes: Active Insurance Policies Plan Name Member ID Group # Subscriber Relationship Effect chas Dates 1 - [facility] ([place]) Medicare [id number] Basil Vilchis Clinical Notes Includes: Signed Clinical Notes starting from 07/27/2022 * Progress note Date Encounter Last Documented by 05/28/2024 Follow Up Last documented on 06/20/2024; 8:55 AM, Edis Olguin MD; [facility] Active Problems & Conditions - Joint [...]
--- OUTSIDE RECORDS SUMMARY | 2025-05-18 12:47 | XMS_ITS | Clinical Summary ---
Author Organization [facility] , [facility] Address [address] [place] [address] Phone Care Team Providers Care [employer] Name Role Phone Rae Tovar Primary Care Provider [phone] Nik Rose MD Unavailable [phone] Reason for Visit and Chief Complaint The Chief Complaint is: right shoulder pain Problems Includes: Problems addressed during this encounter and other active Problems All Visits Onset Date Resolved Date Provider Condition S tatus Joint Pain Shoulder Right 10/10/2023 Edis Olguin MD Active Last Documented On 4 1:48PM ; [facility] Plan of Treatment Patient may return [...] - Last Documented On 06/20/2024 8:55AM ; [facility] Assessments Includes: Assessments from this encounter Findings Doing well after arthroscopic rotator cuff repair. He is approximately 5-1/2-6 months out - Last Documented On 06/20/2024 8:55AM ; [facility] Medical Equipment - Implanted Devices Includes: Current Devices No Medical Equipment Recorded Medications Includes: Medications discussed during this encounter and other current Medications Current Medications (continue as prescribed) hydroCHLOROthiazide 12.5 MG Oral Tablet 02/09/2024 Alex berkowitz: Diagnosis: Last Documented On 4 10:36AM By Galo Vázquez ; [facility], [facility] FLUoxetine HCl 20 MG Oral Capsule 02/03/2024 Provide r: LAQUITA TOVAR Diagnosis: Last Documented On 4 10:36AM By Galo Vázquez ; [facility] amLODIPine Besylate 5 MG Oral Tablet 12/24/2023 Prov ider: Diagnosis: Last Documented On 4 10:36AM By Galo Vázquez ; [facility] Aspirin Low Dose 81 MG Oral Tablet Chewable 12/19/2023 Provider: Diagnosis: Last Documented On 4 10:36AM By Galo Vázquez ; [facility] Spironolactone 25 MG Oral Tablet 12/17/2023 Provider : Diagnosis: Last Documented On 4 10:36AM By Galo Vázquez ; [facility] Doxycycline Hyclate 100 MG Oral Tablet 12/04/2023 Pr ovider: Edis Olguin MD Diagnosis: Last Documented On 4 10:36AM By Galo Vázquez ; [facility] Ondansetron HCl 4 MG Oral Tablet 11/29/2023 Provider : Edis Olguin MD Diagnosis: Last Documented On 4 10:37AM By Galo Vázquez ; [facility] traMADol HCl 50 MG Oral Tablet 11/21/2023 Provider: LAQUITA TOVAR Diagnosis: Last Documented On 4 10:37AM By Galo Vázquez ; [facility] Benazepril HCl 20 MG Oral Tablet 11/08/2023 Provider : Diagnosis: Last Documented On 4 1:47PM By Lauren Medina ; [facility] Bisoprolol Fumarate 5 MG Oral Tablet 11/08/2023 Prov ider: Diagnosis: Last Documented On 4 1:48PM By Lauren Medina ; [facility] Albuterol Sulfate HFA 108 (9 0 Base) MCG/ACT Inhalation Aerosol Solution 11/08/2023 Provider: Diagnosis: Last Documented On 4 1:47PM By Lauren Medina ; [facility] amLODIPine Besylate 5 MG Oral Tablet 09/26/2023 Prov ider: Diagnosis: Last Documented On 4 1:48PM By Adelina Viramontes ; [facility], [facility] Rosuvastatin Calcium 20 MG Oral Tablet 09/17/2023 Pr ovider: Diagnosis: Last Documented On 4 1:48PM By Adelina Viramontes ; [facility], [facility] Spironolactone 25 MG Oral Tablet 09/16/2023 Provider : Diagnosis: Last Documented On 4 1:48PM By Adelina Viramontes ; [facility], [facility] EQ Aspirin Low Dose 81 MG Oral Tablet Chewable 024 Provider: Diagnosis: Last Documented On 4 1:48PM By Adelina Viramontes ; [facility], [facility] Past Medications on file Ondansetron HCl 4 MG Oral Tablet 11/29/2023 - 12/09/2023 Provider: Edis hudson MD Diagnosis: 1 q 8 hours prn post op nausea Last Documented On 4 10:43AM By Edis Olguin ; [facility], [facility] oxyCODONE HCl 5 MG Oral Tablet 11/29/2023 - 12/04/2023 Provider: Edis hudson MD Diagnosis: 1-2 po q 4-6h prn post op pain Last Documented On 4 10:43AM By Edis Olguin ; [facility] traMADol HCl 50 MG Oral Tablet 11/06/2023 - 11/14/2023 Provider: Edis Olguin MD Diagnosis: Pain in right sh oulder [id number] prn pain Last Documented On 4 4:01PM By Edis Olguin ; [facility], [facility] traMADol HCl 50 MG Oral Tablet 10/25/2023 - 11/02/2023 Provider: Edis Olguin MD Diagnosis: Pain in right sh oulder [id number] prn pain Last Documented On 4 1:35PM By Edis Olguin ; [facility], [facility] traMADol HCl 50 MG Oral Tablet 10/18/2023 - 10/26/2023 Provider: Edis Olguin MD Diagnosis: Pain in right sh oulder [id number] prn pain Last Documented On 4 11:19AM By Edis Olguin ; [facility], [facility] traMADol HCl 50 MG Oral Tablet 10/10/2023 - 10/18/2023 Provider: Edis Olguin MD Diagnosis: Pain in right sh oulder [id number] prn pain Last Documented On 4 3:19PM By Edis Olguin ; [facility], [facility] Medications Administered Includes: Administered Medications from this encounter No Administered Medications Recorded Vital Signs Includes: Vital Signs from this encounter Vital Name 05/28/2024 09:14A Height (in) 66 Weight (lb) 230 Body Mass Index 37.1 Body Surface Area 2.1 Note: ab Last Documented: On 05/28/2024 9:14AM ; [facility], [facility] [...] 10/10/2023 Last Documented On 4 9:14AM ; [facility], [facility] No recent change in diet 10/10/2023 Last Documented On 4 9:14AM ; [facility], [facility] Not a current smoker. 10/10/2023 Last Documented On 4 9:14AM ; [facility] Not exercising regularly 10/10/2023 Last Documented On 4 9:14AM ; [facility] Not using alcohol 10/10/2023 Last Documented On 4 9:14AM ; [facility] Not using drugs 10/10/2023 Last Documented On 4 9:14AM ; [facility] Tobacco non-user 10/10/2023 Last Documented On 4 9:14AM ; [facility], [facility] Smoking Status Unknown Procedures and Surgical History Includes: Procedures from this encounter Procedures Code Diagnosis Performing Provider Service L ocation Service Date use of tobacco assessment performed 1000F Last Documented On 4 9:14AM ; [facility] review of medications documented 1160F Last Documented On 4 9:14AM ; [facility] Surgical History Last Updated History of History of Gallbladder 2023 Last Documented On 4 9:13AM ; [facility] History of total knee arthroplasty 10/10 Last Documented On 4 9:13AM ; [facility] Medical History Includes: Medical History addressed during this encounter Description Last Updated History of Sleep Apnea 10/10/2023 Last Documented On 4 9:13AM ; [facility] Use of CPAP 10/10/2023 Last Documented On 4 9:13AM ; [facility] Family History Includes: Family History addressed during this encounter Description Last Updated Family history of cancer 10/10/2023 Last Documented On 4 9:13AM ; [facility] Review of Systems Includes: Review of [...] Time Diagnosis Follow Up Edis Olguin MD [facility] 4 9:05AM 9:30AM Insurance Includes: Active Insurance Policies Plan Name Member ID Group # Subscriber Relationship Effect chas Dates 1 - [employer] ([place]) Medicare [id number] Basil Leal Self Clinical Notes Includes: Clinical Notes from this encounter * Progress note Date Encounter Last Documented by 05/28/2024 Follow Up Last documented on 06/20/2024; 8:55 AM, Edis Olguin MD; [facility], [facility] [...]
--- OUTSIDE RECORDS SUMMARY | 2025-05-18 12:47 | XMS_ITS | Clinical Summary ---
Author Organization [facility] Address [address] [place] [address] Phone Care Team Providers Care County Ordinary Name Role Phone Rae Tovar Primary Care Provider [phone] Nik Rose MD Unavailable [phone] Reason for Visit and Chief Complaint The Chief Complaint is: right shoulder pain Problems Includes: Problems addressed during this encounter and other active Problems All Visits Onset Date Resolved Date Provider Condition S tatus Joint Pain Shoulder Right 10/10/2023 Edis Olguin MD Active Last Documented On 1:48PM ; [facility], [facility] Plan of Treatment - Patient screened for future fall risk: documentation of any fall with injury in past year - Last Documented On 02/29/2024 4:57PM ; [facility], [facility] Fall Risk Assessment: This patient has [...] - Last Documented On 02/29/2024 4:57PM ; [facility], [facility] Patient will transition from the phase 2 to phase 3 therapy protocol. We will see him back in a proximally 3 months for final check. - Last Documented On 02/29/2024 4:57PM ; [facility], [facility] Assessments Includes: Assessments from this encounter Findings Status post rotator cuff repair proximally 2 months out from his surgery. He is doing well - Last Documented On 02/29/2024 4:57PM ; [facility], [facility] Medical Equipment - Implanted Devices Includes: Current Devices No Medical Equipment Recorded Medications Includes: Medications discussed during this encounter and other current Medications Current Medications (continue as prescribed) hydroCHLOROthiazide 12.5 MG Oral Tablet 02/09/2024 P valerioder: Diagnosis: Last Documented On 4 10:36AM By Galo Vázquez ; [facility], [facility] FLUoxetine HCl 20 MG Oral Capsule 02/03/2024 Provide r: LAQUITA TOVAR Diagnosis: Last Documented On 4 10:36AM By Galo Vázquez ; [facility] amLODIPine Besylate 5 MG Oral Tablet 12/24/2023 Prov ider: Diagnosis: Last Documented On 4 10:36AM By Galo Vázquez ; [facility], [facility] Aspirin Low Dose 81 MG Oral Tablet Chewable 12/19/2023 Provider: Diagnosis: Last Documented On 4 10:36AM By Galo Vázquez ; [facility], [facility] Spironolactone 25 MG Oral Tablet 12/17/2023 Provider : Diagnosis: Last Documented On 4 10:36AM By Galo Vázquez ; [facility], [facility] Doxycycline Hyclate 100 MG Oral Tablet 12/04/2023 Pr ovider: Edis Olguin MD Diagnosis: Last Documented On 4 10:36AM By Galo Vázquez ; [facility], [facility] Ondansetron HCl 4 MG Oral Tablet 11/29/2023 Provider : Edis Olguin MD Diagnosis: Last Documented On 4 10:37AM By Galo Vázquez ; [facility], [facility] traMADol HCl 50 MG Oral Tablet 11/21/2023 Provider: LAQUITA TOVAR Diagnosis: Last Documented On 4 10:37AM By Galo Vázquez ; [facility] Benazepril HCl 20 MG Oral Tablet 11/08/2023 Provider : Diagnosis: Last Documented On 4 1:47PM By Lauren Medina ; [facility], [facility] Bisoprolol Fumarate 5 MG Oral Tablet 11/08/2023 Prov ider: Diagnosis: Last Documented On 4 1:48PM By Lauren Medina ; [facility], [facility] Albuterol Sulfate HFA 108 (9 0 Base) MCG/ACT Inhalation Aerosol Solution 11/08/2023 Provider: Diagnosis: Last Documented On 4 1:47PM By Lauren Medina ; [facility], [facility] amLODIPine Besylate 5 MG Oral Tablet 09/26/2023 Prov ider: Diagnosis: Last Documented On 4 1:48PM By Adelina Viramontes ; [facility], [facility] Rosuvastatin Calcium 20 MG Oral Tablet 09/17/2023 Pr ovider: Diagnosis: Last Documented On 4 1:48PM By Adelina Viramontes ; [facility], [facility] Spironolactone 25 MG Oral Tablet 09/16/2023 Provider : Diagnosis: Last Documented On 4 1:48PM By Adelina Viramontes ; [facility], [facility] EQ Aspirin Low Dose 81 MG Oral Tablet Chewable 024 Provider: Diagnosis: Last Documented On 4 1:48PM By Adelina Viramontes ; [facility], [facility] Past Medications on file Ondansetron HCl 4 MG Oral Tablet 11/29/2023 - 12/09/2023 Provider: Edis hudson MD Diagnosis: 1 q 8 hours prn post op nausea Last Documented On 4 10:43AM By Edis Olguin ; [facility], [facility] oxyCODONE HCl 5 MG Oral Tablet 11/29/2023 - 12/04/2023 Provider: Edis hudson MD Diagnosis: 1-2 po q 4-6h prn post op pain Last Documented On 4 10:43AM By Edis Olguin ; [facility], [facility] traMADol HCl 50 MG Oral Tablet 11/06/2023 - 11/14/2023 Provider: Edis Olguin MD Diagnosis: Pain in right sh oulder 0kri1-4v prn pain Last Documented On 4 4:01PM By Edis Olguin ; [facility], [facility] traMADol HCl 50 MG Oral Tablet 10/25/2023 - 11/02/2023 Provider: Edis Olguin MD Diagnosis: Pain in right sh oulder 6awv5-1t prn pain Last Documented On 4 1:35PM By Edis Olguin ; [facility] traMADol HCl 50 MG Oral Tablet 10/18/2023 - 10/26/2023 Provider: Edis Olguin MD Diagnosis: Pain in right sh oulder 6ieo9-3t prn pain Last Documented On 4 11:19AM By Edis Olguin ; [facility] traMADol HCl 50 MG Oral Tablet 10/10/2023 - 10/18/2023 Provider: Edis Olguin MD Diagnosis: Pain in right sh oulder 8jiv9-7o prn pain Last Documented On 4 3:19PM By Edis Olguin ; [facility] Medications Administered Includes: Administered Medications from this encounter No Administered Medications Recorded Vital Signs Includes: Vital Signs from this encounter Vital Name 02/18/2024 10:37A Height (in) 66 Weight (lb) 230 Body Mass Index 37.1 Body Surface Area 2.1 Note: kld Last Documented: On 02/18/2024 10:37A M ; [facility] Results Includes: Results discussed during this [...] No caffeine use 10/10/2023 Last Documented On 10:37AM ; [facility] No recent change in diet 10/10/2023 Last Documented On 4 10:37AM ; [facility], [facility] Not a current smoker. 10/10/2023 Last Documented On 4 10:37AM ; [facility], [facility] Not exercising regularly 10/10/2023 Last Documented On 4 10:37AM ; [facility], [facility] Not using alcohol 10/10/2023 Last Documented On 4 10:37AM ; [facility], [facility] Not using drugs 10/10/2023 Last Documented On 4 10:37AM ; [facility], [facility] Tobacco non-user 10/10/2023 Last Documented On 4 10:37AM ; [facility], [facility] Smoking Status Unknown Procedures and Surgical History Includes: Procedures from this encounter Procedures Code Diagnosis Performing Provider Service L ocation Service Date use of tobacco assessment performed 1000F Last Documented On 4 10:37AM ; [facility], [facility] review of medications documented 1160F Last Documented On 4 10:37AM ; [facility], [facility] Surgical History Last Updated History of History of Gallbladder 2023 Last Documented On 4 10:37AM ; [facility] History of total knee arthroplasty 10/10 Last Documented On 4 10:37AM ; [facility], [facility] Medical History Includes: Medical History addressed during this encounter Description Last Updated History of Sleep Apnea 10/10/2023 Last Documented On 4 10:37AM ; [facility], [facility] Use of CPAP 10/10/2023 Last Documented On 4 10:37AM ; [facility], [facility] Family History Includes: Family History addressed during this encounter Description Last Updated Family history of cancer 10/10/2023 Last Documented On 4 10:37AM ; [facility], [facility] Review of Systems Includes: Review of [...] Time Diagnosis Post Op Edis Olguin MD [facility] 4 10:34AM 11:02AM Insurance Includes: Active Insurance Policies Plan Name Member ID Group # Subscriber Relationship Effect chas Dates - ([place]) Medicare [id number] Basil Leal Self Clinical Notes Includes: Clinical Notes from this encounter * Progress note Date Encounter Last Documented by 02/18/2024 Post Op Last documented on 02/29/2024; 4:57 PM, Edis Olguin MD; [facility], [facility] Active Problems & Conditions - Joint [...]
== END 2025-05-18 23:59 | disposition home or self-care (01) ==
LOC: RAD 12:44
PROVIDERS: PCP Nurse Practitioner Family; Visit Provider Nurse Practitioner Family
DX: M50.322 Other cervical disc degeneration at C5-C6 level (principal); M50.323 Other cervical disc degeneration at C6-C7 level
CPT/HCPCS: 72050

== ENCOUNTER 2025-06-03 14:13 | Outpatient (CLI) | payer MEDICARE, SELFPAY ==
--- NOTE | 2025-06-03 14:17 | XR_ITS ---
FINAL REPORT CLINICAL HISTORY: lumbago, muscle spasms, low back pain FINDINGS: No fracture is identified. Mild disc space narrowing is seen with mild endplate spurring at multiple levels. This is most advanced at L3-4. Facet arthropathy is noted as well. Alignment is normal. IMPRESSION: Mild degenerative changes without fracture Authenticated and ERN
--- OUTSIDE RECORDS SUMMARY | 2025-06-03 14:55 | XMS_ITS | Clinical Summary ---
Author Organization [facility] Address [address] [address] Phone Care Team Providers Care Scholarship Counselor Name Role Phone Rae Tovar Primary Care Provider [phone] Nik Rose MD Unavailable [phone] Reason for Visit and Chief Complaint [Patient Encounter] Problems Includes: Problems addressed during this encounter and other active Problems All Visits Onset Date Resolved Date Provider Condition S tatus Joint Pain Shoulder Right 10/10/2023 Edis Olguin MD Active Last Documented On 4 1:48PM ; [facility] Plan of Treatment No Plan [...] 4 10:36AM By Galo Vázquez ; [facility] FLUoxetine HCl 20 MG Oral Capsule 02/03/2024 Provide r: LAQUITA TOVAR Diagnosis: Last Documented On 4 10:36AM By Galo Vázquez ; [facility] amLODIPine Besylate 5 MG Oral Tablet 12/24/2023 Prov ider: Diagnosis: Last Documented On 4 10:36AM By Galo Vázquez ; [facility] Aspirin Low Dose 81 MG Oral Tablet Chewable 12/19/2023 Provider: Diagnosis: Last Documented On 4 10:36AM By Galo Vázquez ; [facility] Spironolactone 25 MG Oral Tablet 12/17/2023 Provider : Diagnosis: Last Documented On 4 10:36AM By Galo Vázquez ; [facility] Doxycycline Hyclate 100 MG Oral Tablet 12/04/2023 Pr ovider: Edis Olguin MD Diagnosis: Last Documented On 4 10:36AM By Galo Vázquez ; [facility] Ondansetron HCl 4 MG Oral Tablet 11/29/2023 Provider : Edis Olguin MD Diagnosis: Last Documented On 4 10:37AM By Galo Vázquez ; [facility] traMADol HCl 50 MG Oral Tablet 11/21/2023 Provider: LAQUITA TOVAR Diagnosis: Last Documented On 4 10:37AM By Galo Vázquez ; [facility] Benazepril HCl 20 MG Oral Tablet 11/08/2023 Provider : Diagnosis: Last Documented On 4 1:47PM By Lauren Medina ; [facility] Bisoprolol Fumarate 5 MG Oral Tablet 11/08/2023 Prov ider: Diagnosis: Last Documented On 4 1:48PM By Lauren Medina ; [facility] Albuterol Sulfate HFA 108 (9 0 Base) MCG/ACT Inhalation Aerosol Solution 11/08/2023 Provider: Diagnosis: Last Documented On 4 1:47PM By Lauren Medina ; [facility] amLODIPine Besylate 5 MG Oral Tablet 09/26/2023 Prov ider: Diagnosis: Last Documented On 4 1:48PM By Adelina Viramontes ; [facility] Rosuvastatin Calcium 20 MG Oral Tablet 09/17/2023 Pr ovider: Diagnosis: Last Documented On 4 1:48PM By Adelina Viramontes ; [facility] Spironolactone 25 MG Oral Tablet 09/16/2023 Provider : Diagnosis: Last Documented On 4 1:48PM By Adelina Viramontes ; [facility] EQ Aspirin Low Dose 81 MG Oral Tablet Chewable 024 Provider: Diagnosis: Last Documented On 1:48PM By Adelina Viramontes ; [facility] Medications Administered Includes: Administered Medications from this encounter No Administered Medications Recorded Vital Signs Includes: Vital Signs from this encounter Vital Name 11/14/2023 09:45A Blood Pressure Sitting (mmHg) 75/48 Pulse Rate-Sitting (bpm) 62 Height (in) 66 Weight (lb) 230 Body Mass Index 37.1 Body Surface Area 2.1 Oxygen Saturation (%) 98 Last Documented: On 11/14/2023 9:47AM ; [facility] Results Includes: Results discussed during [...] Relationship Effect chas Dates 1 - [employer] ([place]) Medicare [id number] Basil Leal Self Clinical Notes Includes: Clinical Notes from this encounter No Clinical Notes Recorded
--- OUTSIDE RECORDS SUMMARY | 2025-06-03 14:55 | XMS_ITS | Clinical Summary ---
Author Organization [facility] Address [address] [id number] Care Team Providers Care Retail Sales Assistant Name Role Phone Vikki Law APRN Primary Care Provider [phone] Immunizations Immunization Administration Dates Next Due Pneumococcal [...] of Treatment Not on file Care Teams Retail Sales Assistant Relationship Specialty Start Date End Date Vikki Law APRN [address] [place] [address] PCP - General 12/24/20
--- OUTSIDE RECORDS SUMMARY | 2025-06-03 14:55 | XMS_ITS ---
Care Plan - [facility] Created on: June 03, 2025 Basil Leal : 1955 Sex: Male Author Organization [facility] Address [address] [place] [address] Phone Care Team Providers Care Hand Box Folder Name Role Phone Rae Tovar Primary Care Provider [phone] [place] ADAMS, Nik Unavailable [phone]
--- OUTSIDE RECORDS SUMMARY | 2025-06-03 14:56 | XMS_ITS | Clinical Summary ---
Author Organization [facility] , [facility] Address [address] [place] [address] Phone Care Team Providers Care Leadership Recruiter Name Role Phone Rae Tovar Primary Care Provider [phone] Nik Rose MD Unavailable [phone] Reason for Visit and Chief Complaint The Chief Complaint is: Right shoulder pain Problems Includes: Problems addressed during this encounter and other active Problems All Visits Onset Date Resolved Date Provider Condition S tatus Joint Pain Shoulder Right 10/10/2023 Edis Olguin MD Active Last Documented On 4 1:48PM ; [facility], [facility] Plan of Treatment - Patient screened for future fall risk: documentation of any fall with injury in past year - Last Documented On 12/24/2023 8:20AM ; [facility] Fall Risk Assessment: This patient has [...] - Last Documented On 12/24/2023 8:20AM ; [facility] Patient understands the restrictions postoperatively. Operative details were explained to the patient. Sling use will be continued. Patient can have active motion of the elbow, forearm, wrist and hand. Physical therapy referral will be given if required. Patient will follow-up as scheduled. If there is any questions or concerns they can call our office. - Last Documented On 12/24/2023 8:20AM ; [facility], [facility] Assessments Includes: Assessments from this encounter Findings Rotator cuff repair - Last Documented On 12/24/2023 8:20AM ; [facility] Medical Equipment - Implanted Devices Includes: Current Devices No Medical Equipment Recorded Medications Includes: Medications discussed during this encounter and other current Medications Current Medications (continue as prescribed) hydroCHLOROthiazide 12.5 MG Oral Tablet 02/09/2024 P rovider: Diagnosis: Last Documented On 4 10:36AM By Galo Vázquez ; [facility], [facility] FLUoxetine HCl 20 MG Oral Capsule 02/03/2024 Provide r: LAQUITA TOVAR Diagnosis: Last Documented On 4 10:36AM By Galo Vázquez ; [facility], [facility] amLODIPine Besylate 5 MG Oral Tablet 12/24/2023 Prov ider: Diagnosis: Last Documented On 4 10:36AM By Galo Vázquez ; [facility], [facility] Aspirin Low Dose 81 MG Oral Tablet Chewable 12/19/2023 Provider: Diagnosis: Last Documented On 4 10:36AM By Galo Vázquez ; [facility], [facility] Spironolactone 25 MG Oral Tablet 12/17/2023 Provider : Diagnosis: Last Documented On 4 10:36AM By Galo Vázquez ; [facility], [facility] Doxycycline Hyclate 100 MG Oral Tablet 12/04/2023 Pr ovider: Edis Olguin MD Diagnosis: Last Documented On 4 10:36AM By Galo Vázquez ; [facility], [facility] Ondansetron HCl 4 MG Oral Tablet 11/29/2023 Provider : Edis Olguin MD Diagnosis: Last Documented On 4 10:37AM By Galo Vázquez ; [facility] traMADol HCl 50 MG Oral Tablet 11/21/2023 Provider: LAQUITA TOVAR Diagnosis: Last Documented On 4 10:37AM By Galo Vázquez ; [facility], [facility] Benazepril HCl 20 MG Oral Tablet 11/08/2023 Provider : Diagnosis: Last Documented On 4 1:47PM By Lauren Medina ; [facility] Bisoprolol Fumarate 5 MG Oral Tablet 11/08/2023 Prov ider: Diagnosis: Last Documented On 4 1:48PM By Lauren Medina ; [facility], [facility] Albuterol Sulfate HFA 108 (9 0 Base) MCG/ACT Inhalation Aerosol Solution 11/08/2023 Provider: Diagnosis: Last Documented On 4 1:47PM By Lauren Medina ; [facility] amLODIPine Besylate 5 MG Oral Tablet 09/26/2023 Prov ider: Diagnosis: Last Documented On 4 1:48PM By Adelina Viramontes ; [facility] Rosuvastatin Calcium 20 MG Oral Tablet 09/17/2023 Pr ovider: Diagnosis: Last Documented On 4 1:48PM By Adelina Viramontes ; [facility] Spironolactone 25 MG Oral Tablet 09/16/2023 Provider : Diagnosis: Last Documented On 4 1:48PM By Adelina Viramontes ; [facility] EQ Aspirin Low Dose 81 MG Oral Tablet Chewable 024 Provider: Diagnosis: Last Documented On 4 1:48PM By Adelina Viramontes ; [facility] Past Medications on file Ondansetron HCl 4 MG Oral Tablet 11/29/2023 - 12/09/2023 Provider: Edis hudson MD Diagnosis: 1 q 8 hours prn post op nausea Last Documented On 4 10:43AM By Edis Olguin ; [facility] oxyCODONE HCl 5 MG Oral Tablet 11/29/2023 - 12/04/2023 Provider: Edis hudson MD Diagnosis: 1-2 po q 4-6h prn post op pain Last Documented On 4 10:43AM By Edis Olguin ; [facility] traMADol HCl 50 MG Oral Tablet 11/06/2023 - 11/14/2023 Provider: Edis Olguin MD Diagnosis: Pain in right sh oulder 4cov0-5d prn pain Last Documented On 4 4:01PM By Edis Olguin ; [facility] traMADol HCl 50 MG Oral Tablet 10/25/2023 - 11/02/2023 Provider: Edis lOguin MD Diagnosis: Pain in right sh oulder [id number] prn pain Last Documented On 4 1:35PM By Edis Olguin ; [facility] traMADol HCl 50 MG Oral Tablet 10/18/2023 - 10/26/2023 Provider: Edis Olguin MD Diagnosis: Pain in right sh oulder 6qag1-3y prn pain Last Documented On 4 11:19AM By Edis Olguin ; [facility] traMADol HCl 50 MG Oral Tablet 10/10/2023 - 10/18/2023 Provider: Edis Olguin MD Diagnosis: Pain in right sh oulder 2ynw4-1t prn pain Last Documented On 4 3:19PM By Edis Olguin ; [facility] Medications Administered Includes: Administered Medications from [...] 10/10/2023 Last Documented On 4 10:46AM ; [facility] No recent change in diet 10/10/2023 Last Documented On 4 10:46AM ; [facility] Not a current smoker. 10/10/2023 Last Documented On 4 10:46AM ; [facility] Not exercising regularly 10/10/2023 Last Documented On 4 10:46AM ; [facility] Not using alcohol 10/10/2023 Last Documented On 4 10:46AM ; [facility] Not using drugs 10/10/2023 Last Documented On 4 10:46AM ; [facility] Tobacco non-user 10/10/2023 Last Documented On 4 10:46AM ; [facility] Smoking Status Unknown Procedures and Surgical History Includes: Procedures from this encounter Procedures Code Diagnosis Performing Provider Service L ocation Service Date use of tobacco assessment performed 1000F Last Documented On 4 10:46AM ; [facility] review of medications documented 1160F Last Documented On 4 10:46AM ; [facility] Surgical History Last Updated History of History of Gallbladder 2023 Last Documented On 4 10:46AM ; [facility] History of total knee arthroplasty 10/10 Last Documented On 4 10:46AM ; [facility] Medical History Includes: Medical History addressed during this encounter Description Last Updated History of Sleep Apnea 10/10/2023 Last Documented On 4 10:46AM ; [facility] Use of CPAP 10/10/2023 Last Documented On 4 10:46AM ; [facility] Family History Includes: Family History addressed during this encounter Description Last Updated Family history of cancer 10/10/2023 Last Documented On 4 10:46AM ; [facility] Review of Systems Includes: Review of [...] Time Diagnosis Post Op Thaddeus So PA-C [facility] 4 10:40AM 10:58AM Insurance Includes: Active Insurance Policies Plan Name Member ID Group # Subscriber Relationship Effect chas Dates 1 - [place] ([place]) Medicare [id number] Basil Leal Self Clinical Notes Includes: Clinical Notes from this encounter * Progress note Date Encounter Last Documented by 12/18/2023 Post Op Last documented on 12/24/2023; 8:20 AM, Thaddeus So PA-C; [facility] Active Problems & Conditions - Joint [...]
--- OUTSIDE RECORDS SUMMARY | 2025-06-03 14:56 | XMS_ITS | Clinical Summary ---
Author Organization [facility] , [facility] Address [address] [place] [address] Phone Care Team Providers Care Radiation / Chemistry Technician Name Role Phone Rae Tovar Primary Care Provider [phone] Nik Rose MD Unavailable [phone] Reason for Visit and Chief Complaint The Chief Complaint is: right shoulder pain Problems Includes: Problems addressed during this encounter and other active Problems All Visits Onset Date Resolved Date Provider Condition S tatus Joint Pain Shoulder Right 10/10/2023 Edis Olguin MD Active Last Documented On 4 1:48PM ; [facility] Plan of Treatment Patient may return [...] - Last Documented On 06/20/2024 8:55AM ; [facility] Assessments Includes: Assessments from this encounter Findings Doing well after arthroscopic rotator cuff repair. He is approximately 5-1/2-6 months out - Last Documented On 06/20/2024 8:55AM ; [facility] Medical Equipment - Implanted Devices Includes: Current Devices No Medical Equipment Recorded Medications Includes: Medications discussed during this encounter and other current Medications Current Medications (continue as prescribed) hydroCHLOROthiazide 12.5 MG Oral Tablet 02/09/2024 Alex berkowitz: Diagnosis: Last Documented On 4 10:36AM By Galo Vázquez ; [facility], [facility] FLUoxetine HCl 20 MG Oral Capsule 02/03/2024 Provide r: LAQUITA TOVAR Diagnosis: Last Documented On 4 10:36AM By Galo Vázquez ; [facility] amLODIPine Besylate 5 MG Oral Tablet 12/24/2023 Prov ider: Diagnosis: Last Documented On 4 10:36AM By Galo Vázquez ; [facility] Aspirin Low Dose 81 MG Oral Tablet Chewable 12/19/2023 Provider: Diagnosis: Last Documented On 4 10:36AM By Galo Vázquez ; [facility] Spironolactone 25 MG Oral Tablet 12/17/2023 Provider : Diagnosis: Last Documented On 4 10:36AM By Galo Vázquez ; [facility] Doxycycline Hyclate 100 MG Oral Tablet 12/04/2023 Pr ovider: Edis Olguin MD Diagnosis: Last Documented On 4 10:36AM By Galo Vázquez ; [facility] Ondansetron HCl 4 MG Oral Tablet 11/29/2023 Provider : Edis Olguin MD Diagnosis: Last Documented On 4 10:37AM By Galo Vázquez ; [facility] traMADol HCl 50 MG Oral Tablet 11/21/2023 Provider: LAQUITA TOVAR Diagnosis: Last Documented On 4 10:37AM By Galo Vázquez ; [facility] Benazepril HCl 20 MG Oral Tablet 11/08/2023 Provider : Diagnosis: Last Documented On 4 1:47PM By Lauren Medina ; [facility] Bisoprolol Fumarate 5 MG Oral Tablet 11/08/2023 Prov ider: Diagnosis: Last Documented On 4 1:48PM By Lauren Medina ; [facility] Albuterol Sulfate HFA 108 (9 0 Base) MCG/ACT Inhalation Aerosol Solution 11/08/2023 Provider: Diagnosis: Last Documented On 4 1:47PM By Lauren Medina ; [facility] amLODIPine Besylate 5 MG Oral Tablet 09/26/2023 Prov ider: Diagnosis: Last Documented On 4 1:48PM By Adelina Viramontes ; [facility], [facility] Rosuvastatin Calcium 20 MG Oral Tablet 09/17/2023 Pr ovider: Diagnosis: Last Documented On 4 1:48PM By Adelina Viramontes ; [facility], [facility] Spironolactone 25 MG Oral Tablet 09/16/2023 Provider : Diagnosis: Last Documented On 4 1:48PM By Adelina Viramontes ; [facility], [facility] EQ Aspirin Low Dose 81 MG Oral Tablet Chewable 024 Provider: Diagnosis: Last Documented On 4 1:48PM By Adelina Viramontes ; [facility], [facility] Past Medications on file Ondansetron HCl 4 MG Oral Tablet 11/29/2023 - 12/09/2023 Provider: Edis hudson MD Diagnosis: 1 q 8 hours prn post op nausea Last Documented On 4 10:43AM By Edis Olguin ; [facility], [facility] oxyCODONE HCl 5 MG Oral Tablet 11/29/2023 - 12/04/2023 Provider: Edis hudson MD Diagnosis: 1-2 po q 4-6h prn post op pain Last Documented On 4 10:43AM By Edis Olguin ; [facility] traMADol HCl 50 MG Oral Tablet 11/06/2023 - 11/14/2023 Provider: Edis Olguin MD Diagnosis: Pain in right sh oulder 6enq0-8n prn pain Last Documented On 4 4:01PM By Edis Olguin ; [facility], [facility] traMADol HCl 50 MG Oral Tablet 10/25/2023 - 11/02/2023 Provider: Edis Olguin MD Diagnosis: Pain in right sh oulder 9mhm3-4m prn pain Last Documented On 4 1:35PM By Edis Olguin ; [facility], [facility] traMADol HCl 50 MG Oral Tablet 10/18/2023 - 10/26/2023 Provider: Edis Olguin MD Diagnosis: Pain in right sh oulder 9zou7-1c prn pain Last Documented On 4 11:19AM By Edis Olguin ; [facility], [facility] traMADol HCl 50 MG Oral Tablet 10/10/2023 - 10/18/2023 Provider: Edis Olguin MD Diagnosis: Pain in right sh oulder 3xyx6-0m prn pain Last Documented On 4 3:19PM By Edis Olguin ; [facility], [facility] Medications Administered Includes: Administered Medications from this encounter No Administered Medications Recorded Vital Signs Includes: Vital Signs from this encounter Vital Name 05/28/2024 09:14A Height (in) 66 Weight (lb) 230 Body Mass Index 37.1 Body Surface Area 2.1 Note: ab Last Documented: On 05/28/2024 9:14AM ; [facility], [facility] Results Includes: Results discussed during this [...] 10/10/2023 Last Documented On 4 9:14AM ; [facility], [facility] No recent change in diet 10/10/2023 Last Documented On 4 9:14AM ; [facility], [facility] Not a current smoker. 10/10/2023 Last Documented On 4 9:14AM ; [facility] Not exercising regularly 10/10/2023 Last Documented On 4 9:14AM ; [facility] Not using alcohol 10/10/2023 Last Documented On 4 9:14AM ; [facility] Not using drugs 10/10/2023 Last Documented On 4 9:14AM ; [facility] Tobacco non-user 10/10/2023 Last Documented On 4 9:14AM ; [facility], [facility] Smoking Status Unknown Procedures and Surgical History Includes: Procedures from this encounter Procedures Code Diagnosis Performing Provider Service L ocation Service Date use of tobacco assessment performed 1000F Last Documented On 4 9:14AM ; [facility] review of medications documented 1160F Last Documented On 4 9:14AM ; [facility] Surgical History Last Updated History of History of Gallbladder 2023 Last Documented On 4 9:13AM ; [facility] History of total knee arthroplasty 10/10 Last Documented On 4 9:13AM ; [facility] Medical History Includes: Medical History addressed during this encounter Description Last Updated History of Sleep Apnea 10/10/2023 Last Documented On 4 9:13AM ; [facility] Use of CPAP 10/10/2023 Last Documented On 4 9:13AM ; [facility] Family History Includes: Family History addressed during this encounter Description Last Updated Family history of cancer 10/10/2023 Last Documented On 4 9:13AM ; [facility] Review of Systems Includes: Review of [...] Time Diagnosis Follow Up Edis Olguin MD [facility] 4 9:05AM 9:30AM Insurance Includes: Active Insurance Policies Plan Name Member ID Group # Subscriber Relationship Effect chas Dates 1 - [employer] ([place]) Medicare [id number] Basil Leal Self Clinical Notes Includes: Clinical Notes from this encounter * Progress note Date Encounter Last Documented by 05/28/2024 Follow Up Last documented on 06/20/2024; 8:55 AM, Edis Olguin MD; [facility], [facility] Active Problems & Conditions - Joint [...]
--- OUTSIDE RECORDS SUMMARY | 2025-06-03 14:56 | XMS_ITS | Clinical Summary ---
Author Organization [facility] , [facility] Address [address] [place] [address] Phone Care Team Providers Care Broker In Charge Name Role Phone Rae Tovar Primary Care Provider [phone] Nik Rose MD Unavailable [phone] Reason for Visit and Chief Complaint The Chief Complaint is: right shoulder pain Problems Includes: Problems addressed during this encounter and other active Problems All Visits Onset Date Resolved Date Provider Condition S tatus Joint Pain Shoulder Right 10/10/2023 Edis Olguin MD Active Last Documented On 1:48PM ; [facility], [facility] Plan of Treatment - Patient screened for future fall risk: documentation of any fall with injury in past year - Last Documented On 02/29/2024 4:57PM ; [facility], [facility] Fall Risk Assessment: This patient has been [...] - Last Documented On 02/29/2024 4:57PM ; [facility], [facility] Patient will transition from the phase 2 to phase 3 therapy protocol. We will see him back in a proximally 3 months for final check. - Last Documented On 02/29/2024 4:57PM ; [facility], [facility] Assessments Includes: Assessments from this encounter Findings Status post rotator cuff repair proximally 2 months out from his surgery. He is doing well - Last Documented On 02/29/2024 4:57PM ; [facility], [facility] Medical Equipment - Implanted Devices Includes: Current Devices No Medical Equipment Recorded Medications Includes: Medications discussed during this encounter and other current Medications Current Medications (continue as prescribed) hydroCHLOROthiazide 12.5 MG Oral Tablet 02/09/2024 P valerioder: Diagnosis: Last Documented On 4 10:36AM By Galo Vázquez ; [facility], [facility] FLUoxetine HCl 20 MG Oral Capsule 02/03/2024 Provide r: LAQUITA TOVAR Diagnosis: Last Documented On 4 10:36AM By Galo Vázquez ; [facility] amLODIPine Besylate 5 MG Oral Tablet 12/24/2023 Prov ider: Diagnosis: Last Documented On 4 10:36AM By Galo Vázquez ; [facility], [facility] Aspirin Low Dose 81 MG Oral Tablet Chewable 12/19/2023 Provider: Diagnosis: Last Documented On 4 10:36AM By Galo Vázquez ; [facility], [facility] Spironolactone 25 MG Oral Tablet 12/17/2023 Provider : Diagnosis: Last Documented On 4 10:36AM By Galo Vázquez ; [facility], [facility] Doxycycline Hyclate 100 MG Oral Tablet 12/04/2023 Pr ovider: Edis Olguin MD Diagnosis: Last Documented On 4 10:36AM By Galo Vázquez ; [facility], [facility] Ondansetron HCl 4 MG Oral Tablet 11/29/2023 Provider : Edis Olguin MD Diagnosis: Last Documented On 4 10:37AM By Galo Vázquez ; [facility], [facility] traMADol HCl 50 MG Oral Tablet 11/21/2023 Provider: LAQUITA TOVAR Diagnosis: Last Documented On 4 10:37AM By Galo Vázquez ; [facility] Benazepril HCl 20 MG Oral Tablet 11/08/2023 Provider : Diagnosis: Last Documented On 4 1:47PM By Lauren Medina ; [facility], [facility] Bisoprolol Fumarate 5 MG Oral Tablet 11/08/2023 Prov ider: Diagnosis: Last Documented On 4 1:48PM By Lauren Medina ; [facility], [facility] Albuterol Sulfate HFA 108 (9 0 Base) MCG/ACT Inhalation Aerosol Solution 11/08/2023 Provider: Diagnosis: Last Documented On 4 1:47PM By Lauren Medina ; [facility], [facility] amLODIPine Besylate 5 MG Oral Tablet 09/26/2023 Prov ider: Diagnosis: Last Documented On 4 1:48PM By Adelina Viramontes ; [facility], [facility] Rosuvastatin Calcium 20 MG Oral Tablet 09/17/2023 Pr ovider: Diagnosis: Last Documented On 4 1:48PM By Adelina Viramontes ; [facility], [facility] Spironolactone 25 MG Oral Tablet 09/16/2023 Provider : Diagnosis: Last Documented On 4 1:48PM By Adelina Viramontes ; [facility], [facility] EQ Aspirin Low Dose 81 MG Oral Tablet Chewable 024 Provider: Diagnosis: Last Documented On 4 1:48PM By Adelina Viramontes ; [facility], [facility] Past Medications on file Ondansetron HCl 4 MG Oral Tablet 11/29/2023 - 12/09/2023 Provider: Edis hudson MD Diagnosis: 1 q 8 hours prn post op nausea Last Documented On 4 10:43AM By Edis Olguin ; [facility], [facility] oxyCODONE HCl 5 MG Oral Tablet 11/29/2023 - 12/04/2023 Provider: Edis hudson MD Diagnosis: 1-2 po q 4-6h prn post op pain Last Documented On 4 10:43AM By Edis Olguin ; [facility], [facility] traMADol HCl 50 MG Oral Tablet 11/06/2023 - 11/14/2023 Provider: Edis Olguin MD Diagnosis: Pain in right sh oulder 8six4-3m prn pain Last Documented On 4 4:01PM By Edis Olguin ; [facility], [facility] traMADol HCl 50 MG Oral Tablet 10/25/2023 - 11/02/2023 Provider: Edsi Olguin MD Diagnosis: Pain in right sh oulder 2dpo6-1d prn pain Last Documented On 4 1:35PM By Edis Olguin ; [facility] traMADol HCl 50 MG Oral Tablet 10/18/2023 - 10/26/2023 Provider: Edis Olguin MD Diagnosis: Pain in right sh oulder 1jdv9-8c prn pain Last Documented On 4 11:19AM By Edis Olguin ; [facility], [facility] traMADol HCl 50 MG Oral Tablet 10/10/2023 - 10/18/2023 Provider: Edis Olguin MD Diagnosis: Pain in right sh oulder 9gux7-6e prn pain Last Documented On 4 3:19PM By Edis Olguin ; [facility], [facility] Medications Administered Includes: Administered Medications from this encounter No Administered Medications Recorded Vital Signs Includes: Vital Signs from this encounter Vital Name 02/18/2024 10:37A Height (in) 66 Weight (lb) 230 Body Mass Index 37.1 Body Surface Area 2.1 Note: kld Last Documented: On 02/18/2024 10:37A M ; [facility], [facility] Results Includes: Results discussed during this encounter [...] Last Documented On 10:37AM ; [facility], [facility] No recent change in diet 10/10/2023 Last Documented On 4 10:37AM ; [facility], [facility] Not a current smoker. 10/10/2023 Last Documented On 4 10:37AM ; [facility], [facility] Not exercising regularly 10/10/2023 Last Documented On 4 10:37AM ; [facility], [facility] Not using alcohol 10/10/2023 Last Documented On 4 10:37AM ; [facility], [facility] Not using drugs 10/10/2023 Last Documented On 4 10:37AM ; [facility], [facility] Tobacco non-user 10/10/2023 Last Documented On 4 10:37AM ; [facility], [facility] Smoking Status Unknown Procedures and Surgical History Includes: Procedures from this encounter Procedures Code Diagnosis Performing Provider Service L ocation Service Date use of tobacco assessment performed 1000F Last Documented On 4 10:37AM ; [facility], [facility] review of medications documented 1160F Last Documented On 4 10:37AM ; [facility], [facility] Surgical History Last Updated History of History of Gallbladder 2023 Last Documented On 4 10:37AM ; [facility] History of total knee arthroplasty 10/10 Last Documented On 4 10:37AM ; [facility], [facility] Medical History Includes: Medical History addressed during this encounter Description Last Updated History of Sleep Apnea 10/10/2023 Last Documented On 4 10:37AM ; [facility], [facility] Use of CPAP 10/10/2023 Last Documented On 4 10:37AM ; [facility], [facility] Family History Includes: Family History addressed during this encounter Description Last Updated Family history of cancer 10/10/2023 Last Documented On 4 10:37AM ; [facility], [facility] Review of Systems Includes: Review of Systems [...] Time Diagnosis Post Op Edis Olguin MD [facility] 4 10:34AM 11:02AM Insurance Includes: Active Insurance Policies Plan Name Member ID Group # Subscriber Relationship Effect chas Dates - ([place]) Medicare [id number] Basil Leal Self Clinical Notes Includes: Clinical Notes from this encounter * Progress note Date Encounter Last Documented by 02/18/2024 Post Op Last documented on 02/29/2024; 4:57 PM, Edis Olguin MD; [facility], [facility] Active Problems & Conditions - Joint Pain, [...]
--- OUTSIDE RECORDS SUMMARY | 2025-06-03 14:56 | XMS_ITS | Clinical Summary ---
Author Organization [facility] , [facility] Address [address] [place] [address] Phone Care Team Providers Care Environmental Research Scientist Name Role Phone Rae Tovar Primary Care Provider [phone] Nik Rose MD Unavailable [phone] Reason for Visit and Chief Complaint BRACE FITTING Problems Includes: Problems addressed during this encounter and other active Problems All Visits Onset Date Resolved Date Provider Condition S tatus Joint Pain Shoulder Right 10/10/2023 Edis Olguin MD Active Last Documented On 4 1:48PM ; [facility], [facility] Plan of Treatment No Plan of [...] Vázquez ; [facility], [facility] FLUoxetine HCl 20 MG Oral Capsule 02/03/2024 Provide r: LAQUITA TOVAR Diagnosis: Last Documented On 4 10:36AM By Galo Vázquez ; [facility] amLODIPine Besylate 5 MG Oral Tablet 12/24/2023 Prov ider: Diagnosis: Last Documented On 4 10:36AM By Galo Vázquez ; [facility], [facility] Aspirin Low Dose 81 MG Oral Tablet Chewable 12/19/2023 Provider: Diagnosis: Last Documented On 4 10:36AM By Galo Vázquez ; [facility] Spironolactone 25 MG Oral Tablet 12/17/2023 Provider : Diagnosis: Last Documented On 4 10:36AM By Galo Vázquez ; [facility] Doxycycline Hyclate 100 MG Oral Tablet 12/04/2023 Pr ovider: Edis Olguin MD Diagnosis: Last Documented On 4 10:36AM By Galo Vázquez ; [facility] Ondansetron HCl 4 MG Oral Tablet 11/29/2023 Provider : Edis Olguin MD Diagnosis: Last Documented On 4 10:37AM By Galo Vázquez ; [facility] traMADol HCl 50 MG Oral Tablet 11/21/2023 Provider: LAQUITA OTVAR Diagnosis: Last Documented On 4 10:37AM By Galo Vázquez ; [facility] Benazepril HCl 20 MG Oral Tablet 11/08/2023 Provider : Diagnosis: Last Documented On 4 1:47PM By Lauren Medina ; [facility] Bisoprolol Fumarate 5 MG Oral Tablet 11/08/2023 Prov ider: Diagnosis: Last Documented On 4 1:48PM By Lauren Medina ; [facility] Albuterol Sulfate HFA 108 (9 0 Base) MCG/ACT Inhalation Aerosol Solution 11/08/2023 Provider: Diagnosis: Last Documented On 4 1:47PM By Lauren Medina ; [facility], [facility] amLODIPine Besylate 5 MG Oral Tablet 09/26/2023 Prov ider: Diagnosis: Last Documented On 4 1:48PM By Adelina Viramontes ; [facility] Rosuvastatin Calcium 20 MG Oral Tablet 09/17/2023 Pr ovider: Diagnosis: Last Documented On 4 1:48PM By Adelina Viramontes ; [facility] Spironolactone 25 MG Oral Tablet 09/16/2023 Provider : Diagnosis: Last Documented On 4 1:48PM By Adelina Viramontes ; [facility], [facility] EQ Aspirin Low Dose 81 MG Oral Tablet Chewable 024 Provider: Diagnosis: Last Documented On 4 1:48PM By Adelina [facility], [facility] Medications Administered Includes: Administered Medications [...] Relationship Effect chas Dates 1 - [place] ([place]) Medicare [id number] Basil Vilchis Clinical Notes Includes: Clinical Notes from this encounter No Clinical Notes Recorded
--- OUTSIDE RECORDS SUMMARY | 2025-06-03 14:57 | XMS_ITS ---
Author Organization [facility] , [facility] Address [address] [place] [address] Phone Care Team Providers Care Diaphragm Builder Name Role Phone Rae Tovar Primary Care Provider [phone] Nik Rose MD Unavailable [phone] Problems Includes: Active, inactive, and resolved Problems All Visits Onset Date Resolved Date Provider Condition S tatus Joint Pain Shoulder Right 10/10/2023 Edis Olguin MD Active Last Documented On 4 1:48PM ; [facility] Plan of Treatment Findings Encounter Date Patient screened for future fall risk: documentation of any fall with injury in past year Post Op with Edis Olguin MD 02/18/2024 Last Documented On 4 4:57PM ; [facility] Patient screened for future fall risk: documentation of any fall with injury in past year Post Op with Thaddeus So PA-C 12/18/2023 Last Documented On 4 8:20AM ; [facility] Instructions to patient Lose weight Last Documented On 4 1:49PM ; [facility] Assessments Includes: Assessments for all patient encounters Findings Encounter Date Overweight Physician Specified with Edis Olguin MD 10/10/2023 Last Documented On 4 9:02AM ; [facility] Instructions Includes: Instructions for all patient encounters Instructions to patient Lose weight Last Documented On 4 1:49PM ; [facility] Medical Equipment - Implanted Devices Includes: Current and historical Devices No Medical Equipment Recorded Medications Includes: Current and historical Medications Current Medications (continue as prescribed) hydroCHLOROthiazide 12.5 MG Oral Tablet 02/09/2024 P rovider: Diagnosis: Last Documented On 4 10:36AM By Galo Vázquez ; [facility] FLUoxetine HCl 20 MG Oral Capsule 02/03/2024 Provide r: LAQUITA TOVAR Diagnosis: Last Documented On 4 10:36AM By Galo Vázquez ; [facility] amLODIPine Besylate 5 MG Oral Tablet 12/24/2023 Prov ider: Diagnosis: Last Documented On 4 10:36AM By Galo Vázquez ; [facility] Aspirin Low Dose 81 MG Oral Tablet Chewable 12/19/2023 Provider: Diagnosis: Last Documented On 4 10:36AM By Galo Vázquez ; [facility] Spironolactone 25 MG Oral Tablet 12/17/2023 Provider : Diagnosis: Last Documented On 4 10:36AM By Galo Vázquez ; [facility] Doxycycline Hyclate 100 MG Oral Tablet 12/04/2023 Pr ovider: Edis Olguin MD Diagnosis: Last Documented On 4 10:36AM By Galo Vázquez ; [facility] Ondansetron HCl 4 MG Oral Tablet 11/29/2023 Provider : Edis Olguin MD Diagnosis: Last Documented On 4 10:37AM By Galo Vázquez ; [facility] traMADol HCl 50 MG Oral Tablet 11/21/2023 Provider: LAQUITA TOVAR Diagnosis: Last Documented On 4 10:37AM By Galo Vázquez ; [facility] Benazepril HCl 20 MG Oral Tablet 11/08/2023 Provider : Diagnosis: Last Documented On 4 1:47PM By Lauren Medina ; [facility] Bisoprolol Fumarate 5 MG Oral Tablet 11/08/2023 Prov ider: Diagnosis: Last Documented On 4 1:48PM By Lauren Medina ; [facility] Albuterol Sulfate HFA 108 (9 0 Base) MCG/ACT Inhalation Aerosol Solution 11/08/2023 Provider: Diagnosis: Last Documented On 4 1:47PM By Lauren Medina ; [facility], [facility] amLODIPine Besylate 5 MG Oral Tablet 09/26/2023 Prov ider: Diagnosis: Last Documented On 4 1:48PM By Adelina Viramontes ; [facility], [facility] Rosuvastatin Calcium 20 MG Oral Tablet 09/17/2023 Pr ovider: Diagnosis: Last Documented On 4 1:48PM By Adelina Viramontes ; [facility], [facility] Spironolactone 25 MG Oral Tablet 09/16/2023 Provider : Diagnosis: Last Documented On 4 1:48PM By Adelina Viramontes ; [facility], [facility] EQ Aspirin Low Dose 81 MG Oral Tablet Chewable 024 Provider: Diagnosis: Last Documented On 4 1:48PM By Adelina Viramontes ; [facility], [facility] Past Medications on file Ondansetron HCl 4 MG Oral Tablet 11/29/2023 - 12/09/2023 Provider: Edis hudson MD Diagnosis: 1 q 8 hours prn post op nausea Last Documented On 4 10:43AM By Edis Olguin ; [facility] oxyCODONE HCl 5 MG Oral Tablet 11/29/2023 - 12/04/2023 Provider: Edis hudson MD Diagnosis: 1-2 po q 4-6h prn post op pain Last Documented On 4 10:43AM By Edis Olguin ; [facility] traMADol HCl 50 MG Oral Tablet 11/06/2023 - 11/14/2023 Provider: Edis Olguin MD Diagnosis: Pain in right sh oulder [id number] prn pain Last Documented On 4 4:01PM By Edis Olguin ; [facility], [facility] traMADol HCl 50 MG Oral Tablet 10/25/2023 - 11/02/2023 Provider: Edis Olguin MD Diagnosis: Pain in right sh oulder 0gpl7-3k prn pain Last Documented On 4 1:35PM By Edis Olguin ; [facility] traMADol HCl 50 MG Oral Tablet 10/18/2023 - 10/26/2023 Provider: Edis Olguin MD Diagnosis: Pain in right sh oulder 1jvd2-2q prn pain Last Documented On 4 11:19AM By Edis Olguin ; [facility] traMADol HCl 50 MG Oral Tablet 10/10/2023 - 10/18/2023 Provider: Edis Olguin MD Diagnosis: Pain in right sh oulder 1plu1-5y prn pain Last Documented On 4 3:19PM By Edis Olguin ; [facility] traMADol HCl 50 MG Oral Tablet 09/28/2023 - 11/08/2023 Provider: LAQUITA TOVAR Diagnosis: Last Documented On 4 1:46PM By Lauren Medina ; [facility], [facility] methylPREDNISolone 4 MG Oral Tablet Therapy Pack 08/30/2023 - 11/08/2023 Provider: Diagnosis: Last Documented On 4 1:46PM By Lauren Medina ; [facility], [facility] Medications Administered Includes: Administered Medications in patient's chart No Administered Medications Recorded Results Includes: Results from 06/03/2024 through 06/03/2025 No Results Recorded For Specified Dates History of Present Illness History of Present Illness not supported for this document type No History of Present Illness Recorded Social History Description Last Updated No caffeine use 10/10/2023 Last Documented On 4 9:02AM ; [facility], [facility] No recent change in diet 10/10/2023 Last Documented On 4 9:02AM ; [facility], [facility] Not a current smoker. 10/10/2023 Last Documented On 4 9:02AM ; [facility] Not exercising regularly 10/10/2023 Last Documented On 4 9:02AM ; [facility] Not using alcohol 10/10/2023 Last Documented On 4 9:02AM ; [facility] Not using drugs 10/10/2023 Last Documented On 4 9:02AM ; [facility], [facility] Tobacco non-user 10/10/2023 Last Documented On 4 9:02AM ; [facility] Smoking Status Unknown Procedures and Surgical History Surgical History Last Updated History of History of Gallbladder 2023 Last Documented On 4 9:02AM ; [facility] History of total knee arthroplasty 10/10 Last Documented On 4 9:02AM ; [facility] Medical History Includes: Medical History in patient's chart Description Last Updated History of Sleep Apnea 10/10/2023 Last Documented On 4 9:02AM ; [facility] Use of CPAP 10/10/2023 Last Documented On 4 9:02AM ; [facility] Family History Includes: Family History in patient's chart Description Last Updated Family history of cancer 10/10/2023 Last Documented On 4 9:02AM ; [facility] Review of Systems Review of Systems not supported for this document type No Review of Systems Recorded Mental Status Description No anxiety Functional Status No Functional Status Recorded Physical Exam Physical Exam not supported for this document type No Physical Exam Recorded Allergies Includes: Active, inactive, and resolved Allergies No Known Allergies Insurance Includes: Active Insurance Policies Plan Name Member ID Group # Subscriber Relationship Effect chas Dates - ([place]) Medicare [id number] Basil Vilchis Clinical Notes Includes: Signed Clinical Notes starting from 07/27/2022 No Clinical Notes Recorded
== END 2025-06-03 23:59 | disposition home or self-care (01) ==
LOC: RAD 14:14
PROVIDERS: PCP Nurse Practitioner Family; Visit Provider Nurse Practitioner Family
DX: M47.816 Spondylosis without myelopathy or radiculopathy, lumbar region (principal)
CPT/HCPCS: 72100

== ENCOUNTER 2025-06-11 08:44 | Outpatient (CLI) | payer MEDICARE, SELFPAY ==
--- NOTE | 2025-06-11 08:45 | CT_ITS ---
FINAL REPORT TECHNIQUE: Axial images were obtained through the chest without contrast. Coronal and sagittal reconstructions obtained and reviewed. This study was performed with techniques to keep radiation doses as low as reasonably achievable, (ALARA). Individualized dose reduction techniques using automated exposure control or adjustment of mA and/or kV according to the patient's size were employed. CLINICAL HISTORY: 6 mnth f/u for pulmonary nodule COMPARISON: 12/08/2024 FINDINGS: There are scattered calcified mediastinal lymph nodes. Moderate coronary artery calcifications are noted. The heart size is normal. There is no pericardial or pleural effusion. Density is again seen in the posterior right upper lobe. Soft tissue noncalcified component measures 8 mm, well-seen on image 91 of series 3. Again noted is a calcification lateral to the density. Findings have not progressed compared to the prior exam. Limited images of the upper abdomen are unremarkable. IMPRESSION: Stable density posterior right upper lobe. Reviewed, Interpreted and Dictated by Mark Collado MD Transcribed by Sarah Aldridge Authenticated and . [facility]
--- OUTSIDE RECORDS SUMMARY | 2025-06-11 08:49 | XMS_ITS | Clinical Summary ---
Author Organization Healthcare Address [address] [id number] Care Team Providers Care Collection Support Specialist Name Role Phone Vikki Law APRN Primary Care Provider [phone] Immunizations Immunization Administration Dates Next Due Pneumococcal [...] of Treatment Not on file Care Teams Collection Support Specialist Relationship Specialty Start Date End Date Vikki Law APRN [address] [place] [address] PCP - General 12/24/20
== END 2025-06-11 23:59 | disposition home or self-care (01) ==
LOC: RAD 08:47
PROVIDERS: PCP Nurse Practitioner Family; Visit Provider Internal Medicine Pulmonary Disease
DX: R91.8 Other nonspecific abnormal finding of lung field (principal); R91.1 Solitary pulmonary nodule
CPT/HCPCS: 71250

== ENCOUNTER 2025-06-24 13:23 | Outpatient (RCR) | payer MEDICARE, SELFPAY ==
--- NOTE | 2025-06-25 12:00 | HMH.PTOPEV ---
PT Evaluation Rehab PT Outpatient Evaluation Start: 06/24/25 13:57 Freq: Status: Active Protocol: Document 06/24/25 13:57 BESSIE (Rec: 06/24/25 14:49 BESSIE [id number]) E-signed By Mai Diana, PT Outpatient Therapy Subjective History Subjective History This is an initial PT evaluation for 69-year old male, Basil Leal, who presents with referral for LBP and neck pain. Pt reports he is here for his neck and has had this pain for years. Pt reports he has to trial therapy prior to having an MRI. Insurance denied his cervical MRI d/t not having tried PT first. Pt reports his PCP instructed him to not lift or perform any physical activity/exercise that worsens his pain. Pt's symptoms used to be unilateral on the R but now reports LUE numbness and muscle drawing. Pt reports no physician followed up with him about his last MRI in 2020 at that time. Pt has had hx of cervical injection with some relief. Pt reports he had abnormal nerve conduction tests on the RUE. Pt reports his pain is bilateral in the neck, he gets frequent headaches, and has bilateral numbness/tingling down the arms. Pt denies BLE numbness/tingling, saddle anesthesia, double vision, or bilateral UE/LE weakness. PMH: Prosthetic right eye, L TKA, hypertension. Occupation: retired ramp jockey Imaging: - Lumbar x-ray: Mild degenerative changes without fracture. - Cervical spine: Degenerative disc disease without acute abnormality. - Cervical MRI 2020: Abnormal MRI of the cervical spine with multilevel cervical spondylosis with foraminal narrowing, lateral recess narrowing, canal stenosis with disc osteophyte complexes and impingement upon the cord. New diagnosis of No cancer in past 12 months? Chief Complaint Pain,Stiff Symptom Type Dull,Burning,Numbness,Tingling Symptoms Relieved By OTC Meds,Prescription Meds Symptoms Aggravated Sitting,Standing,Physical Activity,Twisting,Lifting By Current Functional Reaching,Lifting,Housework,Driving,Sleeping,Standing, Limitations Sitting,Squatting,Recreation Activity,Walking,Stairs, Balance,Bending/Stooping Symptom Description Constant but Variable Level of pain today 8 (0-10) Pain scale - at its 10 worst (0-10) Cervical Eval Palpation Cervical Muscles R Cervical Paraspinal,L Cervical Paraspinal,R Suboccipital,L Suboccipital,R Upper Trapezius,L Upper Trapezius,R Thoracic Paraspinals,L Thoracic Paraspinals Cervical/Thoracic Tenderness Palpation Findings Posture Head/C-Spine Posture C-Spine Flattened Sitting Position Head/C-Spine Posture C-Spine Flattened Standing Position Flexibility Deficits Upper Trapezius (R) Moderate Tightness,(L) Moderate Tightness Muscle Length Levaetor Scapulae (R) Moderate Tightness,(L) Moderate Tightness Muscle Length Pectoralis Major (R) Moderate Tightness,(L) Moderate Tightness Muscle Length Pectoralis Minor (R) Moderate Tightness,(L) Moderate Tightness Muscle Length AROM Cervical Spine WNL Extension Active Range of Motion ( degrees) Cervical Spine WNL Flexion Active Range of Motion (degrees) Cervical Spine Right 20 degrees Lateral Flexion Active Range of Motion (degrees) Cervical Spine Left 20 degrees Lateral Flexion Active Range of Motion (degrees) Cervical Spine Right 45 degrees Rotation Active Range of Motion ( degrees) Cervical Spine Left 45 degrees Rotation Active Range of Motion ( degrees) MMT Bilateral Deltoid (C5) 4 Good Biceps Brachii 4 Good Strength Grade Wrist Extension 4 Good Strength Grade Triceps Brachii 4 Good Strength Grade Altered Sensation Comment Intermittent bilateral numbness an tingling with AROM. Special Test C-Spine Foraminal Positive Left,Positive Right Compression ( [place]) Test C-Spine Foraminal Negative Distraction Test C-Spine Compression Positive Left,Positive Right Test Neck Disability Index Neck Disability Index Section 1: Pain The pain is fairly severe at the moment Intensity Section 2: Personal I can look after myself normally but it causes extra Care (washing, pain dressing, etc.) Section 3: Lifting I cannot lift or carry anything Section 4: Reading I can read as much as I want to with no pain in my neck Section 5: Headaches I have slight headaches, which come infrequently Section 6: I can concentrate fully when I want to with no Concentration difficulty Section 7: Work I can't do any work at all Section 8: Driving I can drive my car without any neck pain Section 9: Sleeping My sleep is midly disturbed (1-2 hrs sleepless) Section 10: I can't do any recreation activities Recreation NDI Score 22 Outpatient Therapy Assessment Impairments Problems/ Palpation Tenderness,Impaired Range of Motion,Impaired Impairmments Strength,Impaired Lifting,Impaired Dressing,Impaired Shower/Bathing,Impaired Household Care,Impaired Bending ,Impaired Work Activities,Impaired Desk/Computer Activities,Impaired Balance,Subjective C/O Pain Prognosis Rehab Potential Good Comment Pt presents with chronic severe cervical neck pain with bilateral radiating pain. Pt was very sensitive to light touch in the cervical region and PT was unable to assess joint mobility d/t severe pain. At this time, PT recommending pt return to MD for further cervical imaging d/t recent onset of bilateral symptoms, previous results of cervical MRI performed in 2020, abnormal nerve conduction tests, and high severity/ irritability of symptoms. Pt may benefit from skilled PT to address deficits and achieve goals pending updated cervical MRI results. Clinical Impression Consistent with Yes Diagnosis PT Patient Goals PT Patient Goals PT Short Term In 4 weeks, pt will: Patient Goals 1) Verbalize compliance with home exercise program to improve self-maintenance of symptoms. 2) Verbalize 48-hour pain average (worst/best/current) of 5/10 3) Improve BUE strength by 1/5 MMT grade to improve daily functioning. 4) Tolerate one 10 min moderate intensity endurance task (ex: bike) 5) Improve NDI to 24 points to decrease disability from neck pain and improve QOL. 6) Verbalize feeling at least 45% improved in symptoms since initial PT evaluation. 7) Improve cervical AROM by 5 degrees in affected planes to improve functional ROM for daily tasks. PT Hand Or Machine Paster Patient In 8 weeks, pt will: Goals 1) Verbalize adherence with home exercise program to maximize self-maintenance of symptoms upon d/c from PT POC. 2) Verbalize 48-hour pain average (worst/best/current) of 3/10 3) Improve BUE strength to 5/5 MMT grade to improve daily functioning. 4) Improve NDI to at most 26 points to decrease disability from neck and improve QOL. 5) Improve cervical AROM to WNL to improve functional ROM for daily tasks. 6) Verbalize feeling at least 90% improved in symptoms since initial PT evaluation. Outpatient Therapy Plan of Care Treatment Plan May Include Therapeutic Exercise Yes Including Home Exercise Program Manual Therapy Yes Techniques Neuromuscular Re- Yes education Therapeutic Yes Activities to Return to Previous Functional/Work Level Gait Training Yes ADL/Self Care Yes Education Thermal Modalities Yes Electrical Yes Stimulation Ultrasound/ Yes Phonophoresis Iontophoresis Yes Parrafin Yes Orthotics/Bracing/ Yes Splinting Massage Yes Group Therapy for Yes Medicare Eval/Re-Eval Yes Frequency Times per week 2x weekly Duration Number of Weeks 5-6 weeks Addendums This patient is a No candidate for social or vocational rehab ? Patient/Guardian Yes verbally acknowledges understanding of treatment program and consents to further treatment? Patient/Guardian Yes verbally acknowledges understanding of diagnosis, prognosis and goals for treatment? Eval Complexity PT Charges 37193 - Moderate Complexity Shoulder/Elbow Eval Shoulder Objective Measurements Elbow Objective Measurements PHYSICIAN CERTIFICATION: I certify the specified therapy services for Basil Leal are required, authorized, and reviewed every 30 days.
== END 2025-06-24 23:59 | disposition home or self-care (01) ==
LOC: PT 13:23
PROVIDERS: PCP Nurse Practitioner Family; Visit Provider Nurse Practitioner Family
DX: M50.30 Other cervical disc degeneration, unspecified cervical region (principal); M51.369 Other intervertebral disc degeneration, lumbar region without mention of lumbar back pain or lower extremity pain
CPT/HCPCS: 97162

== ENCOUNTER 2025-07-31 13:44 | Outpatient (CLI) | payer MEDICARE, SELFPAY ==
--- OUTSIDE RECORDS SUMMARY | 2025-07-31 13:46 | XMS_ITS | Clinical Summary ---
Author Organization Healthcare Address [address] [id number] Care Team Providers Care Maintenance Machinist Name Role Phone Vikki Law APRN Primary Care Provider [phone] Immunizations Immunization Administration Dates Next Due Pneumococcal [...] of Treatment Not on file Care Teams Maintenance Machinist Relationship Specialty Start Date End Date Vikki Law APRN [address] [place] [address] PCP - General 12/24/20
--- NOTE | 2025-07-31 14:00 | CT_ITS ---
FINAL REPORT TECHNIQUE: Axial images were obtained of the cervical spine by computed tomography. Coronal and sagittal reconstruction process performed. This study was performed with techniques to keep radiation doses as low as reasonably achievable (ALARA). Individualized dose reduction techniques using automated exposure control or adjustment of mA and/or kV according to the patient''s size were employed. CLINICAL HISTORY: cervicalgia, cervical radiculopathy COMPARISON: None FINDINGS: Cervical vertebrae show normal height. There is advanced disc space narrowing at C5-6 and C6-7. There is no malalignment. The facets are properly aligned. Parasagittal images demonstrate high-grade neural foraminal compromise on the right at C5-6 and on the left at C6-7. IMPRESSION: No acute bony abnormality. Advanced degenerative changes with high-grade neural foraminal compromise as above. Reviewed, Interpreted and Dictated by Mark Collado MD Transcribed by Sarah Aldridge Authenticated and [facility]
== END 2025-07-31 23:59 | disposition home or self-care (01) ==
LOC: RAD 13:44
PROVIDERS: PCP Nurse Practitioner Family; Visit Provider Nurse Practitioner Family
DX: M47.12 Other spondylosis with myelopathy, cervical region (principal); M50.322 Other cervical disc degeneration at C5-C6 level; M50.323 Other cervical disc degeneration at C6-C7 level; R94.130 Abnormal response to nerve stimulation, unspecified
CPT/HCPCS: 72125

== ENCOUNTER 2025-08-11 09:22 | Outpatient (CLI) | payer MEDICARE, SELFPAY ==
--- OUTSIDE RECORDS SUMMARY | 2025-08-11 09:24 | XMS_ITS | Clinical Summary ---
Author Organization [facility] Address [address] [place] [address] Phone Care Team Providers Care Anesthesia Director Name Role Phone Rae Tovar Primary Care Provider [phone] Milton ADAMS, Nik Unavailable [phone] Reason for Visit and Chief Complaint [Patient Encounter] Problems Includes: Problems addressed during this encounter and other active Problems All Visits Onset Date Date of Diagnosis Resolved Date Provider Condition Status Joint Pain Shoulder Right 10/10/2023 10/10/2023 Edis Olguin MD Active Last Documented On 5 1:42AM ; [facility] Plan of Treatment No Plan of [...] 10:36AM By Galo Vázquez ; [facility] FLUoxetine HCl 20 MG Oral Capsule 02/03/2024 Provide r: LAQUITA TOVAR Diagnosis: Last Documented On 4 10:36AM By Galo Vázquez ; [facility], [facility] amLODIPine Besylate 5 MG Oral Tablet 12/24/2023 Prov ider: Diagnosis: Last Documented On 4 10:36AM By Galo Vázquez ; [facility], [facility] Aspirin Low Dose 81 MG Oral Tablet Chewable 12/19/2023 Provider: Diagnosis: Last Documented On 4 10:36AM By Galo Vázquez ; [facility] Spironolactone 25 MG Oral Tablet 12/17/2023 Provider : Diagnosis: Last Documented On 4 10:36AM By Galo Vázquez ; [facility] Doxycycline Hyclate 100 MG Oral Tablet 12/04/2023 Pr ovider: Edis Olguin MD Diagnosis: Last Documented On 4 10:36AM By Galo Vázquez ; [facility] Ondansetron HCl 4 MG Oral Tablet 11/29/2023 Provider : Edis Olguin MD Diagnosis: Last Documented On 4 10:37AM By Galo Vázquez ; [facility] traMADol HCl 50 MG Oral Tablet 11/21/2023 Provider: LAQUITA TOVAR Diagnosis: Last Documented On 4 10:37AM By Glao Vázquez ; [facility] Benazepril HCl 20 MG Oral Tablet 11/08/2023 Provider : Diagnosis: Last Documented On 4 1:47PM By Lauren Medina ; [facility] Bisoprolol Fumarate 5 MG Oral Tablet 11/08/2023 Prov ider: Diagnosis: Last Documented On 4 1:48PM By Lauren Medina ; [facility] Albuterol Sulfate HFA 108 (9 0 Base) MCG/ACT Inhalation Aerosol Solution 11/08/2023 Provider: Diagnosis: Last Documented On 4 1:47PM By Lauren Medina ; [facility] amLODIPine Besylate 5 MG Oral Tablet 09/26/2023 Prov ider: Diagnosis: Last Documented On 4 1:48PM By Adelina Viramontes ; [facility] Rosuvastatin Calcium 20 MG Oral Tablet 09/17/2023 Pr ovider: Diagnosis: Last Documented On 4 1:48PM By Adelina Viramontes ; [facility] Spironolactone 25 MG Oral Tablet 09/16/2023 Provider : Diagnosis: Last Documented On 4 1:48PM By Adelina Viramontes ; [facility] Aspirin Low Dose 81 MG Oral Tablet Chewable 024 Provider: Diagnosis: Last Documented On 1:48PM By Adelina Viramontes ; [facility] Medications Administered Includes: Administered Medications from this encounter No Administered Medications Recorded Vital Signs Includes: Vital Signs from this encounter Vital Name 11/14/2023 09:45A Blood Pressure Sitting (mmHg) 75/48 Pulse Rate-Sitting (bpm) 62 Height (in) 66 Weight (lb) 230 Body Mass Index 37.1 Body Surface Area 2.1 Oxygen Saturation (%) 98 Last Documented: On 11/14/2023 9:47AM ; [facility] Results Includes: Results discussed during this encounter No Results Recorded For Specified Dates History of Present Illness Includes: History of Present Illness from this encounter No History of Present Illness Recorded Social History Description Last Updated Sex - Male 07/07/2025 Last Documented On 4:22PM ; [facility] Smoking Status Unknown Medical History Includes: Medical History addressed during this encounter No Medical History Recorded Family History Includes: Family History addressed during this encounter No Family History Recorded Review of Systems Includes: Review of Systems from this encounter No Review of Systems Recorded Physical Exam Includes: Physical Exam from this encounter No Physical Exam Recorded Allergies Includes: Active Allergies No Known Allergies Care Anesthesia Director Name (Identifier) Role/Relation Location/Telecom Last Documented By Rae Tovar Primary care physici an (occupation) [place], tel:[phone] Last Documented On 07/07/2025 4:22PM ; [facility] Nik Rose MD ([id number]) Assigned practitioner (occupation) tel:[phone] Last Documented On 07/07/2025 4:22PM ; [facility] Encounters Encounter Provider Location (Healthcare Service Location) Date Check-In Time Check-Out Time Diagnosis Encounter Disposition [Patient Encounter] Edis Olguin MD 2023 2:47PM 11:59PM Payer Includes: Active Insurance Policies Plan Name (Payer ID) Coverage Type Member ID Group # Subscriber (ID) Relationship Effective Dates 1 - [employer] ([place]) Medicare ([id number]) [id number] Basil Leal Self Last Documented On 4 7:58AM ; [facility], [facility]
--- OUTSIDE RECORDS SUMMARY | 2025-08-11 09:24 | XMS_ITS | Clinical Summary ---
Author Organization [facility] , [facility] Address [address] [place] [address] Phone Care Team Providers Care Foreign Diplomat Name Role Phone Rae Tovar Primary Care Provider [phone] Milton ADAMS, Nik Unavailable [phone] Reason for Visit and Chief Complaint BRACE FITTING Problems Includes: Problems addressed during this encounter and other active Problems All Visits Onset Date Date of Diagnosis Resolved Date Provider Condition Status Joint Pain Shoulder Right 10/10/2023 10/10/2023 Edis Olguin MD Active Last Documented On 5 1:42AM ; [facility], [facility] Plan of Treatment No Plan of Treatment Recorded Assessments Includes: Assessments from this encounter No Assessments Recorded Medical Equipment - Implanted Devices Includes: Current Devices No Medical Equipment Recorded Medications Includes: Medications discussed during this encounter and other current Medications Current Medications (continue as prescribed) hydroCHLOROthiazide 12.5 MG Oral Tablet 02/09/2024 P sydvider: Diagnosis: Last Documented On 4 10:36AM By Galo Vázquez ; [facility], [facility] FLUoxetine HCl 20 MG Oral Capsule 02/03/2024 Provide r: LAQUITA TOVAR Diagnosis: Last Documented On 4 10:36AM By Galo Vázquez ; [facility], [facility] amLODIPine Besylate 5 MG Oral Tablet 12/24/2023 Prov ider: Diagnosis: Last Documented On 4 10:36AM By Galo Vázquez ; [facility], [facility] Aspirin Low Dose 81 MG Oral Tablet Chewable 12/19/2023 Provider: Diagnosis: Last Documented On 4 10:36AM By Galo Vázquez ; [facility] Spironolactone 25 MG Oral Tablet 12/17/2023 Provider : Diagnosis: Last Documented On 4 10:36AM By Galo Vázquez ; [facility] Doxycycline Hyclate 100 MG Oral Tablet 12/04/2023 Pr ovider: Edis Olguin MD Diagnosis: Last Documented On 4 10:36AM By Galo Vázquez ; [facility] Ondansetron HCl 4 MG Oral Tablet 11/29/2023 Provider : Edis Olguin MD Diagnosis: Last Documented On 4 10:37AM By Galo Vázquez ; [facility] traMADol HCl 50 MG Oral Tablet 11/21/2023 Provider: LAQUITA TOVAR Diagnosis: Last Documented On 4 10:37AM By Galo Vázquez ; [facility], [facility] Benazepril HCl 20 MG Oral Tablet 11/08/2023 Provider : Diagnosis: Last Documented On 4 1:47PM By Lauren Medina ; [facility], [facility] Bisoprolol Fumarate 5 MG Oral Tablet 11/08/2023 Prov ider: Diagnosis: Last Documented On 4 1:48PM By Lauren Medina ; [facility] Albuterol Sulfate HFA 108 (9 0 Base) MCG/ACT Inhalation Aerosol Solution 11/08/2023 Provider: Diagnosis: Last Documented On 4 1:47PM By Lauren Medina ; [facility], [facility] amLODIPine Besylate 5 MG Oral Tablet 09/26/2023 Prov ider: Diagnosis: Last Documented On 4 1:48PM By Adelina Viramontes ; [facility] Rosuvastatin Calcium 20 MG Oral Tablet 09/17/2023 Pr ovider: Diagnosis: Last Documented On 4 1:48PM By Adelina Viramontes ; [facility] Spironolactone 25 MG Oral Tablet 09/16/2023 [...] Sex - Male 07/07/2025 Last Documented On 5 4:22PM ; [facility] Smoking Status Unknown Medical History Includes: [...] Includes: Active Allergies No Known Allergies Care Foreign Diplomat Name (Identifier) Role/Relation Location/Telecom Last Documented By Rae Tovar Primary care physici an (occupation) [place], tel:[phone] Last Documented On 07/07/2025 4:22PM ; [facility] Nik Rose MD ([id number]) Assigned practitioner (occupation) tel:[phone] Last Documented On 07/07/2025 4:22PM ; [facility] Payer Includes: Active Insurance Policies Plan Name (Payer ID) Coverage Type Member ID Group # Subscriber (ID) Relationship Effective Dates 1 - [place] ([place]) Medicare ([id number]) [id number] Basil Leal Self Last Documented On 4 7:58AM ; [facility], [facility]
--- OUTSIDE RECORDS SUMMARY | 2025-08-11 09:24 | XMS_ITS | Clinical Summary ---
Author Organization Healthcare Address [address] [id number] Care Team Providers Care Driller'S Offsider Name Role Phone Vikki Law APRN Primary Care Provider [phone] Immunizations Immunization Administration Dates Next Due Pneumococcal [...] of Treatment Not on file Care Teams Driller'S Offsider Relationship Specialty Start Date End Date Vikki Law APRN [address] [place] [address] PCP - General 12/24/20
--- OUTSIDE RECORDS SUMMARY | 2025-08-11 09:24 | XMS_ITS | Clinical Summary ---
Author Organization [facility] Address [address] [place] [address] Phone Care Team Providers Care Full Stack Software Engineer Name Role Phone Rae Tovar Primary Care Provider [phone] Milton ADAMS, Nik Unavailable [phone] Reason for Visit and Chief Complaint The Chief Complaint is: Right shoulder pain Problems Includes: Problems addressed during this encounter and other active Problems All Visits Onset Date Date of Diagnosis Resolved Date Provider Condition Status Joint Pain Shoulder Right 10/10/2023 10/10/2023 Edis Olguin MD Active Last Documented On 1:42AM ; [facility] Plan of Treatment - Patient screened for future fall risk: documentation of any fall with injury in past year - Last Documented On 12/24/2023 8:20AM ; [facility] Fall Risk Assessment: This patient has [...] - Last Documented On 12/24/2023 8:20AM ; [facility] Patient understands the restrictions postoperatively. Operative details were explained to the patient. Sling use will be continued. Patient can have active motion of the elbow, forearm, wrist and hand. Physical therapy referral will be given if required. Patient will follow-up as scheduled. If there is any questions or concerns they can call our office. - Last Documented On 12/24/2023 8:20AM ; [facility] Assessments Includes: Assessments from this encounter Findings Rotator cuff repair - Last Documented On 12/24/2023 8:20AM ; [facility] Medical Equipment - Implanted Devices Includes: Current Devices No Medical Equipment Recorded Medications Includes: Medications discussed during this encounter and other current Medications Current Medications (continue as prescribed) hydroCHLOROthiazide 12.5 MG Oral Tablet 02/09/2024 P valerioder: Diagnosis: Last Documented On 4 10:36AM By Galo Vázquez ; [facility] FLUoxetine HCl 20 MG Oral Capsule 02/03/2024 Provide r: LAQUITA TVOAR Diagnosis: Last Documented On 4 10:36AM By Galo Vázquez ; [facility], [facility] amLODIPine Besylate 5 MG Oral Tablet 12/24/2023 Prov ider: Diagnosis: Last Documented On 4 10:36AM By Galo Vázquez ; [facility], [facility] Aspirin Low Dose 81 MG Oral Tablet Chewable 12/19/2023 Provider: Diagnosis: Last Documented On 4 10:36AM By Galo Vázquez ; [facility], [facility] Spironolactone 25 MG Oral Tablet 12/17/2023 Provider : Diagnosis: Last Documented On 4 10:36AM By Galo Vázquez ; [facility] Doxycycline Hyclate 100 MG Oral Tablet 12/04/2023 Pr ovider: Edis Olguin MD Diagnosis: Last Documented On 4 10:36AM By Galo Vázquez ; [facility] Ondansetron HCl 4 MG Oral Tablet 11/29/2023 Provider : Edis Olguin MD Diagnosis: Last Documented On 4 10:37AM By Galo Vázquez ; [facility] traMADol HCl 50 MG Oral Tablet 11/21/2023 Provider: LAQUITA TOVAR Diagnosis: Last Documented On 4 10:37AM By Galo Vázquez ; [facility], [facility] Benazepril HCl 20 MG Oral Tablet 11/08/2023 Provider : Diagnosis: Last Documented On 4 1:47PM By Lauren Medina ; [facility] Bisoprolol Fumarate 5 MG Oral Tablet 11/08/2023 Prov ider: Diagnosis: Last Documented On 4 1:48PM By Lauren Medina ; [facility], [facility] Albuterol Sulfate HFA 108 (9 0 Base) MCG/ACT Inhalation Aerosol Solution 11/08/2023 Provider: Diagnosis: Last Documented On 4 1:47PM By Lauren Medina ; [facility] amLODIPine Besylate 5 MG Oral Tablet 09/26/2023 Prov ider: Diagnosis: Last Documented On 4 1:48PM By Adelina Viramontes ; [facility] Rosuvastatin Calcium 20 MG Oral Tablet 09/17/2023 Pr ovider: Diagnosis: Last Documented On 4 1:48PM By Adelina Viramontes ; [facility] Spironolactone 25 MG Oral Tablet 09/16/2023 Provider : Diagnosis: Last Documented On 4 1:48PM By Adelina Viramontes ; [facility] EQ Aspirin Low Dose 81 MG Oral Tablet Chewable 024 Provider: Diagnosis: Last Documented On 4 1:48PM By Adelina Viramontes ; [facility] Past Medications on file Ondansetron HCl 4 MG Oral Tablet 11/29/2023 - 12/09/2023 Provider: Edsi hudson MD Diagnosis: 1 q 8 hours prn post op nausea Fill Status: Filled Last Documented On 4 10:43AM By Edis Olguin ; [facility] oxyCODONE HCl 5 MG Oral Tablet 11/29/2023 - 12/04/2023 Provider: Edis hudson MD Diagnosis: 1-2 po q 4-6h prn post op pain Fill Status: Filled Last Documented On 4 10:43AM By Edis Olguin ; [facility] traMADol HCl 50 MG Oral Tablet 11/06/2023 - 11/14/2023 Provider: Edis Olguin MD Diagnosis: Pain in right sh oulder [id number] prn pain Last Documented On 4 4:01PM By Edis Olguin ; [facility], [facility] traMADol HCl 50 MG Oral Tablet 10/25/2023 - 11/02/2023 Provider: Edis Olguin MD Diagnosis: Pain in right sh oulder 3tgc5-4w prn pain Last Documented On 4 1:35PM By Edis Olguin ; [facility] traMADol HCl 50 MG Oral Tablet 10/18/2023 - 10/26/2023 Provider: Edis Olguin MD Diagnosis: Pain in right sh oulder 8drh4-2c prn pain Last Documented On 4 11:19AM By Edis Olguin ; [facility] traMADol HCl 50 MG Oral Tablet 10/10/2023 - 10/18/2023 Provider: Edis Olguin MD Diagnosis: Pain in right sh oulder 0ayw1-3a prn pain Last Documented On 4 3:19PM By Edis Olguin ; [facility], [facility] Medications Administered Includes: Administered [...] 10/10/2023 Last Documented On 4 10:46AM ; [facility] No recent change in diet 10/10/2023 Last Documented On 4 10:46AM ; [facility] Not a current smoker. 10/10/2023 Last Documented On 4 10:46AM ; [facility] Not exercising regularly 10/10/2023 Last Documented On 4 10:46AM ; [facility] Not using alcohol 10/10/2023 Last Documented On 4 10:46AM ; [facility] Not using drugs 10/10/2023 Last Documented On 4 10:46AM ; [facility] Tobacco non-user 10/10/2023 Last Documented On 4 10:46AM ; [facility] Sex - Male 07/07/2025 Last Documented On 5 4:22PM ; [facility], [facility] Smoking Status Unknown Procedures and Surgical History Includes: Procedures from this encounter Procedures Code Diagnosis Performing Provider Service L ocation Service Date use of tobacco assessment performed 1000F Last Documented On 4 10:46AM ; [facility], [facility] review of medications documented 1160F Last Documented On 4 10:46AM ; [facility], [facility] Surgical History Last Updated History of History of Gallbladder 2023 Last Documented On 4 10:46AM ; [facility], [facility] History of total knee arthroplasty 10/10 Last Documented On 4 10:46AM ; [facility], [facility] Medical History Includes: Medical History addressed during this encounter Description Last Updated History of Sleep Apnea 10/10/2023 Last Documented On 4 10:46AM ; [facility], [facility] Use of CPAP 10/10/2023 Last Documented On 4 10:46AM ; [facility], [facility] Family History Includes: Family History addressed during this encounter Description Last Updated Family history of cancer 10/10/2023 Last Documented On 4 10:46AM ; [facility], [facility] Review of Systems Includes: Review of [...] Status from this encounter Description No anxiety Last Documented On 10:46AM ; [facility] Physical Exam Includes: Physical Exam from this encounter Allergies Includes: Active Allergies No Known Allergies Care Full Stack Software Engineer Name (Identifier) Role/Relation Location/Telecom Last Documented By Rae Tovar Primary care physici an (occupation) , tel: Last Documented On 07/07/2025 4:22PM ; [facility] Nik Rose MD ([id number]) Assigned practitioner (occupation) tel:[phone] Last Documented On 07/07/2025 4:22PM ; [facility] Encounters Encounter Provider Location (Healthcare Service Location) Date Check-In Time Check-Out Time Diagnosis Encounter Disposition Post Op Thaddeus So PA-C [facility] 2023 10:40AM 10:58AM Payer Includes: Active Insurance Policies Plan Name (Payer ID) Coverage Type Member ID Group # Subscriber (ID) Relationship Effective Dates 1 - [facility] ([place]) Medicare (SB660) [id number] Basil Leal Self Last Documented On 7:58AM ; [facility] Clinical Notes Includes: Clinical Notes from this encounter * Progress note Date Encounter Last Documented by 12/18/2023 Post Op Last documented on 12/24/2023; 8:20 AM, Thaddeus So PA-C; [facility] Active Problems & Conditions - Joint [...]
--- OUTSIDE RECORDS SUMMARY | 2025-08-11 09:24 | XMS_ITS ---
Care Plan - [facility] Created on: August 11, 2025 Basil Leal : 1955 Sex: Male Author Organization [facility] Address [address] [place] [address] Phone Care Team Providers Care Sales Specialist Name Role Phone TovarRae jacobsen Primary Care Provider [phone] Milton ADAMS, Nik Unavailable [phone]
--- OUTSIDE RECORDS SUMMARY | 2025-08-11 09:25 | XMS_ITS | Clinical Summary ---
Author Organization [facility] , [facility] Address [address] [place] [address] Phone Care Team Providers Care Corporate Communications Specialist Name Role Phone Rae Tovar Primary Care Provider [phone] Milton ADAMS, Nik Unavailable [phone] Reason for Visit and Chief Complaint The Chief Complaint is: right shoulder pain Problems Includes: Problems addressed during this encounter and other active Problems All Visits Onset Date Date of Diagnosis Resolved Date Provider Condition Status Joint Pain Shoulder Right 10/10/2023 10/10/2023 Edis Olguin MD Active Last Documented On 5 1:42AM ; [facility], [facility] Plan of Treatment - Patient screened for future fall risk: documentation of any fall with injury in past year - Last Documented On 02/29/2024 4:57PM ; [facility], [facility] Fall Risk Assessment: This patient [...] - Last Documented On 02/29/2024 4:57PM ; [facility], [facility] Patient will transition from the phase 2 to phase 3 therapy protocol. We will see him back in a proximally 3 months for final check. - Last Documented On 02/29/2024 4:57PM ; [facility], [facility] Assessments Includes: Assessments from this encounter Findings Status post rotator cuff repair proximally 2 months out from his surgery. He is doing well - Last Documented On 02/29/2024 4:57PM ; [facility], [facility] Medical Equipment - Implanted Devices Includes: Current Devices No Medical Equipment Recorded Medications Includes: Medications discussed during this encounter and other current Medications Current Medications (continue as prescribed) hydroCHLOROthiazide 12.5 MG Oral Tablet 02/09/2024 P valerioder: Diagnosis: Last Documented On 4 10:36AM By Galo Vázquez ; [facility] FLUoxetine HCl 20 MG Oral Capsule 02/03/2024 Provide r: LAQUITA TOVAR Diagnosis: Last Documented On 4 10:36AM By Galo Vázquez ; [facility] amLODIPine Besylate 5 MG Oral Tablet 12/24/2023 Prov ider: Diagnosis: Last Documented On 4 10:36AM By Galo Vázquez ; [facility] Aspirin Low Dose 81 MG Oral Tablet Chewable 12/19/2023 Provider: Diagnosis: Last Documented On 4 10:36AM By Galo Vázquez ; [facility] Spironolactone 25 MG Oral Tablet 12/17/2023 Provider : Diagnosis: Last Documented On 4 10:36AM By Galo Vázquez ; [facility] Doxycycline Hyclate 100 MG Oral Tablet 12/04/2023 Pr ovider: Edis Olguin MD Diagnosis: Last Documented On 4 10:36AM By Galo Vázquez ; [facility], [facility] Ondansetron HCl 4 MG Oral Tablet 11/29/2023 Provider : Edis Olguin MD Diagnosis: Last Documented On 4 10:37AM By Galo Vázquez ; [facility] traMADol HCl 50 MG Oral Tablet 11/21/2023 Provider: LAQUITA TOVAR Diagnosis: Last Documented On 4 10:37AM By Galo Vázquez ; [facility] Benazepril HCl 20 MG Oral Tablet 11/08/2023 Provider : Diagnosis: Last Documented On 4 1:47PM By Lauren Medina ; [facility] Bisoprolol Fumarate 5 MG Oral Tablet 11/08/2023 Prov ider: Diagnosis: Last Documented On 4 1:48PM By Lauren Medina ; [facility], [facility] Albuterol Sulfate HFA 108 (9 0 Base) MCG/ACT Inhalation Aerosol Solution 11/08/2023 Provider: Diagnosis: Last Documented On 4 1:47PM By Lauren Medina ; [facility], [facility] amLODIPine Besylate 5 MG Oral Tablet 09/26/2023 Prov ider: Diagnosis: Last Documented On 4 1:48PM By Adelina Viramontes ; [facility], [facility] Rosuvastatin Calcium 20 MG Oral Tablet 09/17/2023 Pr ovider: Diagnosis: Last Documented On 4 1:48PM By Adelina Viramontes ; [facility], [facility] Spironolactone 25 MG Oral Tablet 09/16/2023 Provider : Diagnosis: Last Documented On 4 1:48PM By Adelina Viramontes ; [facility], [facility] EQ Aspirin Low Dose 81 MG Oral Tablet Chewable 024 Provider: Diagnosis: Last Documented On 4 1:48PM By Adelina Viramontes ; [facility], [facility] Past Medications on file Ondansetron HCl 4 MG Oral Tablet 11/29/2023 - 12/09/2023 Provider: Edis hudson MD Diagnosis: 1 q 8 hours prn post op nausea Fill Status: Filled Last Documented On 4 10:43AM By Edis Olguin ; [facility], [facility] oxyCODONE HCl 5 MG Oral Tablet 11/29/2023 - 12/04/2023 Provider: Edis hudson MD Diagnosis: 1-2 po q 4-6h prn post op pain Fill Status: Filled Last Documented On 4 10:43AM By Edis Olguin ; [facility], [facility] traMADol HCl 50 MG Oral Tablet 11/06/2023 - 11/14/2023 Provider: Edis Olguin MD Diagnosis: Pain in right sh oulder 3pyh6-5g prn pain Last Documented On 4 4:01PM By Edis Olguin ; [facility], [facility] traMADol HCl 50 MG Oral Tablet 10/25/2023 - 11/02/2023 Provider: Edis Olguin MD Diagnosis: Pain in right sh oulder 3olt1-5m prn pain Last Documented On 4 1:35PM By Edis Olguin ; [facility], [facility] traMADol HCl 50 MG Oral Tablet 10/18/2023 - 10/26/2023 Provider: Edis Olguin MD Diagnosis: Pain in right sh oulder 0loq1-7p prn pain Last Documented On 4 11:19AM By Edis Olguin ; [facility], [facility] traMADol HCl 50 MG Oral Tablet 10/10/2023 - 10/18/2023 Provider: Edis Olguin MD Diagnosis: Pain in right sh oulder 7fhh7-8q prn pain Last Documented On 4 3:19PM By Edis Olguin ; [facility], [facility] Medications Administered Includes: Administered Medications from this encounter No Administered Medications Recorded Vital Signs Includes: Vital Signs from this encounter Vital Name 02/18/2024 10:37A Height (in) 66 Weight (lb) 230 Body Mass Index 37.1 Body Surface Area 2.1 Note: kld Last Documented: On 02/18/2024 10:37A M ; [facility], [facility] Results Includes: Results discussed during this [...] 10/10/2023 Last Documented On 4 10:37AM ; [facility], [facility] No recent change in diet 10/10/2023 Last Documented On 4 10:37AM ; [facility], [facility] Not a current smoker. 10/10/2023 Last Documented On 4 10:37AM ; [facility], [facility] Not exercising regularly 10/10/2023 Last Documented On 4 10:37AM ; [facility], [facility] Not using alcohol 10/10/2023 Last Documented On 4 10:37AM ; [facility], [facility] Not using drugs 10/10/2023 Last Documented On 4 10:37AM ; [facility], [facility] Tobacco non-user 10/10/2023 Last Documented On 4 10:37AM ; [facility], [facility] Sex - Male 07/07/2025 Last Documented On 5 4:22PM ; [facility], [facility] Smoking Status Unknown Procedures and Surgical History Includes: Procedures from this encounter Procedures Code Diagnosis Performing Provider Service L ocation Service Date use of tobacco assessment performed 1000F Last Documented On 4 10:37AM ; [facility], [facility] review of medications documented 1160F Last Documented On 4 10:37AM ; [facility], [facility] Surgical History Last Updated History of History of Gallbladder 2023 Last Documented On 4 10:37AM ; [facility], [facility] History of total knee arthroplasty 10/10 Last Documented On 4 10:37AM ; [facility], [facility] Medical History Includes: Medical History addressed during this encounter Description Last Updated History of Sleep Apnea 10/10/2023 Last Documented On 4 10:37AM ; [facility], [facility] Use of CPAP 10/10/2023 Last Documented On 4 10:37AM ; [facility], [facility] Family History Includes: Family History addressed during this encounter Description Last Updated Family history of cancer 10/10/2023 Last Documented On 4 10:37AM ; [facility], [facility] Review of Systems Includes: Review [...] encounter Description No anxiety Last Documented On 10:37AM ; [facility] Physical Exam Includes: Physical Exam from this encounter Allergies Includes: Active Allergies No Known Allergies Care Corporate Communications Specialist Name (Identifier) Role/Relation Location/Telecom Last Documented By Rae Tovar Primary care physici an (occupation) [place], tel:[phone] Last Documented On 07/07/2025 4:22PM ; [facility] Nik Rose MD ([id number]) Assigned practitioner (occupation) tel:[phone] Last Documented On 07/07/2025 4:22PM ; [facility] Encounters Encounter Provider Location (Healthcare Service Location) Date Check-In Time Check-Out Time Diagnosis Encounter Disposition Post Op Edis Olguin MD [facility] 2023 10:34AM 11:02AM Payer Includes: Active Insurance Policies Plan Name (Payer ID) Coverage Type Member ID Group # Subscriber (ID) Relationship Effective Dates 1 - [employer] ([place]) Medicare ([id number]) [id number] Basil Leal Self Last Documented On 4 7:58AM ; [facility], [facility] Clinical Notes Includes: Clinical Notes from this encounter * Progress note Date Encounter Last Documented by 02/18/2024 Post Op Last documented on 02/29/2024; 4:57 PM, Edis Olguin MD; [facility], [facility] Active Problems & Conditions - [...]
--- OUTSIDE RECORDS SUMMARY | 2025-08-11 09:25 | XMS_ITS | Clinical Summary ---
Author Organization [facility] , [facility] Address [address] [place] [address] Phone Care Team Providers Care Internet Marketing Consultant Name Role Phone Rae Tovar Primary Care Provider [phone] Milton ADAMS, Nik Unavailable [phone] Reason for Visit and Chief Complaint The Chief Complaint is: right shoulder pain Problems Includes: Problems addressed during this encounter and other active Problems All Visits Onset Date Date of Diagnosis Resolved Date Provider Condition Status Joint Pain Shoulder Right 10/10/2023 10/10/2023 Edis Olguin MD Active Last Documented On 5 1:42AM ; [facility] Plan of Treatment Patient may return [...] - Last Documented On 06/20/2024 8:55AM ; [facility] Assessments Includes: Assessments from this encounter Findings Doing well after arthroscopic rotator cuff repair. He is approximately 5-1/2-6 months out - Last Documented On 06/20/2024 8:55AM ; [facility] Medical Equipment - Implanted Devices Includes: Current Devices No Medical Equipment Recorded Medications Includes: Medications discussed during this encounter and other current Medications Current Medications (continue as prescribed) hydroCHLOROthiazide 12.5 MG Oral Tablet 02/09/2024 Alex berkowitz: Diagnosis: Last Documented On 4 10:36AM By Galo Vázquez ; [facility] FLUoxetine HCl 20 MG Oral Capsule 02/03/2024 Provide r: LAQUITA TOVAR Diagnosis: Last Documented On 4 10:36AM By Galo Vázquez ; [facility] amLODIPine Besylate 5 MG Oral Tablet 12/24/2023 Prov ider: Diagnosis: Last Documented On 4 10:36AM By Galo Vázquez ; [facility] Aspirin Low Dose 81 MG [...] ; [facility] Benazepril HCl 20 MG Oral Tablet 11/08/2023 Provider : Diagnosis: Last Documented On 4 1:47PM By Lauren Medina ; [facility] Bisoprolol Fumarate 5 MG Oral Tablet 11/08/2023 Prov ider: Diagnosis: Last Documented On 4 1:48PM By Lauren Medina ; [facility] Albuterol Sulfate HFA 108 (9 0 Base) MCG/ACT Inhalation Aerosol Solution 11/08/2023 Provider: Diagnosis: Last Documented On 4 1:47PM By Lauren Medina ; [facility] amLODIPine Besylate 5 MG Oral Tablet 09/26/2023 Prov ider: Diagnosis: Last Documented On 4 1:48PM By Adelina Viramontes ; [facility], [facility] Rosuvastatin Calcium 20 MG Oral Tablet 09/17/2023 Pr ovider: Diagnosis: Last Documented On 4 1:48PM By Adelina Viramontes ; [facility], [facility] Spironolactone 25 MG Oral Tablet 09/16/2023 Provider : Diagnosis: Last Documented On 4 1:48PM By Adelina Viramontes ; [facility], [facility] EQ Aspirin Low Dose 81 MG Oral Tablet Chewable 024 Provider: Diagnosis: Last Documented On 4 1:48PM By Adelina Viramontes ; [facility], [facility] Past Medications on file Ondansetron HCl 4 MG Oral Tablet 11/29/2023 - 12/09/2023 Provider: Edis hudson MD Diagnosis: 1 q 8 hours prn post op nausea Fill Status: Filled Last Documented On 4 10:43AM By Edis lOguin ; [facility] oxyCODONE HCl 5 MG Oral Tablet 11/29/2023 - 12/04/2023 Provider: Edis hudson MD Diagnosis: 1-2 po q 4-6h prn post op pain Fill Status: Filled Last Documented On 4 10:43AM By Edis Olguin ; [facility] traMADol HCl 50 MG Oral Tablet 11/06/2023 - 11/14/2023 Provider: Edis Olguin MD Diagnosis: Pain in right sh oulder 7ofj9-7r prn pain Last Documented On 4 4:01PM By Edis Olguin ; [facility] traMADol HCl 50 MG Oral Tablet 10/25/2023 - 11/02/2023 Provider: Edis Olguin MD Diagnosis: Pain in right sh oulder 1wgp9-7o prn pain Last Documented On 4 1:35PM By Edis Olguin ; [facility] traMADol HCl 50 MG Oral Tablet 10/18/2023 - 10/26/2023 Provider: Edis Olguin MD Diagnosis: Pain in right sh oulder 8mor2-0c prn pain Last Documented On 4 11:19AM By Edis Olguin ; [facility] traMADol HCl 50 MG Oral Tablet 10/10/2023 - 10/18/2023 Provider: Edis Olguin MD Diagnosis: Pain in right sh oulder 0mfp8-7p prn pain Last Documented On 4 3:19PM By Edis Olguin ; [facility], [facility] Medications Administered Includes: Administered Medications from this encounter No Administered Medications Recorded Vital Signs Includes: Vital Signs from this encounter Vital Name 05/28/2024 09:14A Height (in) 66 Weight (lb) 230 Body Mass Index 37.1 Body Surface Area 2.1 Note: ab Last Documented: On 05/28/2024 9:14AM ; [facility] Results Includes: Results discussed during this [...] 10/10/2023 Last Documented On 4 9:14AM ; [facility], [facility] No recent change in diet 10/10/2023 Last Documented On 4 9:14AM ; [facility] Not a current smoker. 10/10/2023 Last Documented On 4 9:14AM ; [facility] Not exercising regularly 10/10/2023 Last Documented On 4 9:14AM ; [facility], [facility] Not using alcohol 10/10/2023 Last Documented On 4 9:14AM ; [facility], [facility] Not using drugs 10/10/2023 Last Documented On 4 9:14AM ; [facility], [facility] Tobacco non-user 10/10/2023 Last Documented On 4 9:14AM ; [facility] Sex - Male 07/07/2025 Last Documented On 5 4:22PM ; [facility], [facility] Smoking Status Unknown Procedures and Surgical History Includes: Procedures from this encounter Procedures Code Diagnosis Performing Provider Service L ocation Service Date use of tobacco assessment performed 1000F Last Documented On 4 9:14AM ; [facility], [facility] review of medications documented 1160F Last Documented On 4 9:14AM ; [facility], [facility] Surgical History Last Updated History of History of Gallbladder 2023 Last Documented On 4 9:13AM ; [facility], [facility] History of total knee arthroplasty 10/10 Last Documented On 4 9:13AM ; [facility], [facility] Medical History Includes: Medical History addressed during this encounter Description Last Updated History of Sleep Apnea 10/10/2023 Last Documented On 4 9:13AM ; [facility], [facility] Use of CPAP 10/10/2023 Last Documented On 4 9:13AM ; [facility], [facility] Family History Includes: Family History addressed during this encounter Description Last Updated Family history of cancer 10/10/2023 Last Documented On 4 9:13AM ; [facility], [facility] Review of Systems Includes: Review of [...] encounter Description No anxiety Last Documented On 4 9:14AM ; [facility] Physical Exam Includes: Physical Exam from this encounter Allergies Includes: Active Allergies No Known Allergies Care Internet Marketing Consultant Name (Identifier) Role/Relation Location/Telecom Last Documented By Rae Tovar Primary care physici an (occupation) , tel:[phone] Last Documented On 07/07/2025 4:22PM ; [facility] Nik Rose MD ([id number]) Assigned practitioner (occupation) tel:[phone] Last Documented On 07/07/2025 4:22PM ; [facility] Encounters Encounter Provider Location (Healthcare Service Location) Date Check-In Time Check-Out Time Diagnosis Encounter Disposition Follow Up Edis Olguin MD [facility] 2023 9:05AM 9:30AM Payer Includes: Active Insurance Policies Plan Name (Payer ID) Coverage Type Member ID Group # Subscriber (ID) Relationship Effective Dates 1 - [facility] ([place]) Medicare ([id number]) [id number] Basil Leal Self Last Documented On 4 7:58AM ; [facility] Clinical Notes Includes: Clinical Notes from this encounter * Progress note Date Encounter Last Documented by 05/28/2024 Follow Up Last documented on 06/20/2024; 8:55 AM, Edis Olguin MD; [facility] Active Problems & Conditions - Joint [...]
--- OUTSIDE RECORDS SUMMARY | 2025-08-11 09:25 | XMS_ITS ---
Author Organization [facility] Address [address] [place] [address] Phone Care Team Providers Care Prorate Clerk Name Role Phone Rae Tovar Primary Care Provider [phone] [place], Nik Unavailable [phone] Problems Includes: Active, inactive, and resolved Problems All Visits Onset Date Date of Diagnosis Resolved Date Provider Condition Status Joint Pain Shoulder Right 10/10/2023 10/10/2023 Edis Olguin MD Active Last Documented On 5 1:42AM ; [facility] Plan of Treatment Findings Encounter Date Patient screened for future fall risk: documentation of any fall with injury in past year Post Op with Edis Olguin MD 02/18/2024 Last Documented On 4 10:37AM ; [facility] Patient screened for future fall risk: documentation of any fall with injury in past year Post Op with Thaddeus So PA-C 12/18/2023 Last Documented On 4 10:46AM ; [facility] Instructions to patient Lose weight Last Documented On 4 1:49PM ; [facility] Assessments Includes: Assessments for all patient encounters Findings Encounter Date Overweight Physician Specified with Edis Olguin MD 10/10/2023 Last Documented On 4 1:49PM ; [facility] Instructions Includes: Instructions for all patient encounters Instructions to patient Lose weight Last Documented On 4 1:49PM ; [facility] Medical Equipment - Implanted Devices Includes: Current and historical Devices No Medical Equipment Recorded Medications Includes: Current and historical Medications Current Medications (continue as prescribed) hydroCHLOROthiazide 12.5 MG Oral Tablet 02/09/2024 Alex luoder: Diagnosis: Last Documented On 4 10:36AM By Galo Vázquez ; [facility] FLUoxetine HCl 20 MG Oral Capsule 02/03/2024 Provide r: LAQUITA TOVAR Diagnosis: Last Documented On 4 10:36AM By Galo Vázquez ; [facility] amLODIPine Besylate 5 MG Oral Tablet 12/24/2023 Prov ider: Diagnosis: Last Documented On 4 10:36AM By Galo Vázquez ; [facility] Aspirin Low Dose 81 MG Oral Tablet Chewable 12/19/2023 Provider: Diagnosis: Last Documented On 4 10:36AM By Galo Vázquez ; [facility] Spironolactone 25 MG Oral Tablet 12/17/2023 Provider : Diagnosis: Last Documented On 4 10:36AM By Galo Vázquez ; [facility] Doxycycline Hyclate 100 MG Oral Tablet 12/04/2023 Pr ovider: Edis Olguin MD Diagnosis: Last Documented On 4 10:36AM By Galo Vázquez ; [facility] Ondansetron HCl 4 MG Oral Tablet 11/29/2023 Provider : Edis Olguin MD Diagnosis: Last Documented On 4 10:37AM By Galo Vázquez ; [facility] traMADol HCl 50 MG Oral Tablet 11/21/2023 Provider: LAQUITA TOVAR Diagnosis: Last Documented On 4 10:37AM By Galo Vázquez ; [facility] Benazepril HCl 20 MG Oral Tablet 11/08/2023 Provider : Diagnosis: Last Documented On 4 1:47PM By Lauren Medina ; [facility] Bisoprolol Fumarate 5 MG Oral Tablet 11/08/2023 Prov ider: Diagnosis: Last Documented On 4 1:48PM By Lauren Medina ; [facility] Albuterol Sulfate HFA 108 (9 0 Base) MCG/ACT Inhalation Aerosol Solution 11/08/2023 Provider: Diagnosis: Last Documented On 4 1:47PM By Lauren Medina ; [facility] amLODIPine Besylate 5 MG Oral Tablet 09/26/2023 Prov ider: Diagnosis: Last Documented On 4 1:48PM By Adelina Viramontes ; [facility] Rosuvastatin Calcium 20 MG Oral Tablet 09/17/2023 Pr ovider: Diagnosis: Last Documented On 4 1:48PM By Adelina Viramontes ; [facility] Spironolactone 25 MG Oral Tablet 09/16/2023 Provider : Diagnosis: Last Documented On 4 1:48PM By Adelina Viramontes ; [facility] EQ Aspirin Low Dose 81 MG Oral Tablet Chewable 024 Provider: Diagnosis: Last Documented On 4 1:48PM By Adelina Viramontes ; [facility] Past Medications on file Ondansetron HCl 4 MG Oral Tablet 11/29/2023 - 12/09/2023 Provider: Edis hudson MD Diagnosis: 1 q 8 hours prn post op nausea Fill Status: Filled Last Documented On 4 10:43AM By Edis Olguin ; [facility] oxyCODONE HCl 5 MG Oral Tablet 11/29/2023 - 12/04/2023 Provider: Edis hudson MD Diagnosis: 1-2 po q 4-6h prn post op pain Fill Status: Filled Last Documented On 4 10:43AM By Edis Olguin ; [facility] traMADol HCl 50 MG Oral Tablet 11/06/2023 - 11/14/2023 Provider: Edis Olguin MD Diagnosis: Pain in right sh oulder [id number] prn pain Last Documented On 4 4:01PM By Edis Olguin ; [facility] traMADol HCl 50 MG Oral Tablet 10/25/2023 - 11/02/2023 Provider: Edis Olguin MD Diagnosis: Pain in right sh oulder [id number] prn pain Last Documented On 4 1:35PM By Edis Olguin ; [facility] traMADol HCl 50 MG Oral Tablet 10/18/2023 - 10/26/2023 Provider: Edis Olguin MD Diagnosis: Pain in right sh oulder [id number] prn pain Last Documented On 4 11:19AM By Edis Olguin ; [facility] traMADol HCl 50 MG Oral Tablet 10/10/2023 - 10/18/2023 Provider: Edis Olguin MD Diagnosis: Pain in right sh oulder [id number] prn pain Last Documented On 4 3:19PM By Edis Olguin ; [facility] traMADol HCl 50 MG Oral Tablet 09/28/2023 - 11/08/2023 Provider: LAQUITA TOVAR Diagnosis: Last Documented On 4 1:46PM By Lauren Medina ; [facility] methylPREDNISolone 4 MG Oral Tablet Therapy Pack 08/30/2023 - 11/08/2023 Provider: Diagnosis: Last Documented On 4 1:46PM By Lauren Medina ; [facility] Medications Administered Includes: Administered Medications in patient's chart No Administered Medications Recorded Results Includes: Results from 08/11/2024 through 08/11/2025 No Results Recorded For Specified Dates Social History Description Last Updated No caffeine use 10/10/2023 Last Documented On 4 9:02AM ; [facility] No recent change in diet 10/10/2023 Last Documented On 4 9:02AM ; [facility] Not a current smoker. 10/10/2023 Last Documented On 4 9:02AM ; [facility] Not exercising regularly 10/10/2023 Last Documented On 4 9:02AM ; [facility] Not using alcohol 10/10/2023 Last Documented On 4 9:02AM ; [facility] Not using drugs 10/10/2023 Last Documented On 4 9:02AM ; [facility] Tobacco non-user 10/10/2023 Last Documented On 4 9:02AM ; [facility] Sex - Male 07/07/2025 Last Documented On 5 4:22PM ; [facility] Smoking Status Unknown Procedures and Surgical History Surgical History Last Updated History of History of Gallbladder 2023 Last Documented On 4 9:02AM ; [facility] History of total knee arthroplasty 10/10 Last Documented On 4 9:02AM ; [facility] Medical History Includes: Medical History in patient's chart Description Last Updated History of Sleep Apnea 10/10/2023 Last Documented On 4 9:02AM ; [facility] Use of CPAP 10/10/2023 Last Documented On 4 9:02AM ; [facility] Family History Includes: Family History in patient's chart Description Last Updated Family history of cancer 10/10/2023 Last Documented On 4 9:02AM ; [facility] Mental Status Description No anxiety Last Documented On 4 9:14AM ; [facility] No anxiety Last Documented On 4 10:37AM ; [facility] No anxiety Last Documented On 4 10:46AM ; [facility] No anxiety Last Documented On 4 1:52PM ; [facility] Allergies Includes: Active, inactive, and resolved Allergies No Known Allergies Care Prorate Clerk Name (Identifier) Role/Relation Location/Telecom Last Documented By Rae Tovar Primary care physici an (occupation) [place], tel: Last Documented On 07/07/2025 4:22PM ; [facility] Nik Rose MD ([phone]) Assigned practitioner (occupation) tel: Last Documented On 07/07/2025 4:22PM ; [facility] Payer Includes: Active Insurance Policies Plan Name (Payer ID) Coverage Type Member ID Group # Subscriber (ID) Relationship Effective Dates 1 - BS ([place] Medicare ([id number]) [id number] Basil Leal Self Last Documented On 4 7:58AM ; [facility]
[2025-08-11 10:08] LABS: Blood Urea Nitrogen 24 mg/dl (9-20); Creatinine,Serum 1.50 mg/dl (0.66-1.25); Estimated Glomerular Filt Rate 47 ml/min (>60); GFR (African American) 56 ML/MIN (>60)
== END 2025-08-11 23:59 | disposition home or self-care (01) ==
LOC: LAB 09:23
PROVIDERS: PCP Nurse Practitioner Family; Visit Provider Nurse Practitioner Family
DX: M48.02 Spinal stenosis, cervical region (principal); M50.30 Other cervical disc degeneration, unspecified cervical region; R93.89 Abnormal findings on diagnostic imaging of other specified body structures; R94.130 Abnormal response to nerve stimulation, unspecified; R20.8 Other disturbances of skin sensation
CPT/HCPCS: 36415; 82565; 84520